=== PATIENT | male | born 1960 | race Caucasian/White ===

== ENCOUNTER 2016-05-15 04:28 | Emergency (ER) | payer MEDICARE, OTHER ==
[~2016-05-15] VITALS: Ht 185.4 cm; Wt 102.1 kg
[~2016-05-15 04:28] MED LIST: ASPI-84 PO; ATOR40TA PO; AZIT-21 PO; CFR250T PO; CHOLESTEROL MED; FENO145T2 PO; LOVA20TA2; METO-333 PO; METO50TA7 PO; MTP50T PO; NAPR-243 PO; OMG1KC PO; PENI500T PO; PRM25T PO; QUIN10TA PO; QUIN5TAB PO; [UNRECOGNIZED DRUG - REMARK]
--- OUTSIDE RECORDS SUMMARY | 2016-05-15 04:34 | XMS REPORT ---
Author Author LUIS ENRIQUE ALLEN [facility] eClinicalWorks Address Unknown Phone Unavailable Care Team Providers Care Payroll Tax Analyst Name Role Phone LUIS ENRIQUE ALLEN CP Unavailable Allergies, Adverse Reactions, Alerts Substance Reaction Event Type Codeine Sulfate Info Not Available Drug Allergy Problems Problem Type Condition Code Onset Dates Condition Status Problem Supraventricular arrhythmia I49.9 Active Assessment Effusion of left olecranon bursa M25.422 Active Problem Coronary artery disease involving [place] coronary artery of [place] heart without angina pectoris I25.10 Active Assessment Supraventricular arrhythmia I49.9 Active Medications Medication Code System Code Instructions Start Date End Date Status Dosage Metoprolol Tartrate [facility] [address]-36 50 MG Orally, needs to establish care every 12 hrs 1 tablet Procedures Procedure Coding System Code Date Office Visit, Est Pt., Level 2 CPT-4 63964 Oct 22, 2015 Vital Signs Date/Time: Oct 22, 2015 Cardiac Monitoring Heart Rate 77 bpm Weight 220.8 lbs Height 73 in BMI 29.13 Index Blood Pressure Diastolic 86 mmHg Blood Pressure Systolic 144 mmHg Results No Known Results Summary Purpose eClinicalWorks Submission
[2016-05-15] MEDS ORDERED: ADENOSINE 6 MG/2 ML (ADENOCARD) VIAL IV ONE (04:45)
[2016-05-15 04:48] LABS: BASOPHILS # (AUTO) 0.1 10^3/uL (0.0-0.1); BASOPHILS % (AUTO) 1 % (0-10); EOSINOPHILS # (AUTO) 0.4 10^3/uL (0.0-0.3); EOSINOPHILS % (AUTO) 3 % (0-10); LYMPHOCYTES # (AUTO) 4.5 X 10^3 (1.0-4.0); LYMPHOCYTES % (AUTO) 35 % (12-44); MEAN CORPUSCULAR HEMOGLOBIN 31 PG (25-34); MEAN CORPUSCULAR HGB CONC 35 G/DL (32-36); MEAN CORPUSCULAR VOLUME 91 FL (80-99); MEAN PLATELET VOLUME 10.9 FL (7.4-10.4); MONOCYTES % (AUTO) 7 % (0-12); NEUTROPHILS # (AUTO) 6.9 X 10^3 (1.8-7.8); NEUTROPHILS % (AUTO) 54 % (42-75); PLATELET COUNT 261 10^3/uL (130-400); RED BLOOD COUNT 5.35 10^6/uL (4.35-5.85); RED CELL DISTRIBUTION WIDTH 14.4 % (10.0-14.5); WHITE BLOOD COUNT 12.8 10^3/uL (4.3-11.0)
--- NOTE | 2016-05-15 04:48 | ED Cardiac General ---
History of Present Illness General Chief Complaint: Cardiac/General Problems Stated Complaint: HEART PALPITATIONS Nursing Triage Note: PT REPORTS PALPITATIONS STARTING AT 0300. C/O FEELING LIGHT-HEADED WITH CHEST PAIN. Source: patient Exam Limitations: no limitations History of Present Illness Time seen by provider: 04:46 Initial Comments Patient developed rapid heart rate around 3 a.m. He denies chest pain or shortness of air. He has a history of SVT with multiple ER visits for this. On arrival his heart rate was a regular narrow complex tachycardia at 150 bpm. Allergies and Home Medications Allergies Coded Allergies: Codeine (Verified Allergy, Unknown, VOMITTING, 12/15/08) Home Medications Metoprolol Tartrate 50 Mg Tablet #60 1 EACH PO BID Prescribed by: VALENTE WOLFF on 05/13/13 1313 Review of Systems Constitutional: no symptoms reported EENTM: No Symptoms Reported Respiratory: No Symptoms Reported Cardiovascular: See HPI Palpitations Gastrointestinal: No Symptoms Reported All Other Systems Reviewed Negative Unless Noted: Yes Past Lpdqxvo-Tysoow-Uteqpr Hx Patient Social History Alcohol Use: Denies Use Recreational Drug Use: Yes (QUIT 5 YRS AGO) Smoking Status: Current Everyday Smoker Recent Foreign Travel: No Contact w/Someone Who Travel: No Recent Infectious Disease Expo: No Recent Hopitalizations: Yes (CHEST PAIN AND BLOOD POISONING) Surgeries HX Surgeries: Yes (HERNIA) Surgeries: Abdominal Respiratory Hx Respiratory Disorders: No Respiratory Disorders: COPD Cardiovascular Hx Cardiac Disorders: Yes (SVT) Cardiac Disorders: Palpitations Neurological Hx Neurological Disorders: No Reproductive System Hx Reproductive Disorders: No Genitourinary Hx Genitourinary Disorders: No Gastrointestinal Hx Gastrointestinal Disorders: No Musculoskeletal Hx Musculoskeletal Disorders: No Endocrine Hx Endocrine Disorders: No HEENT HX ENT Disorders: No Cancer Hx Cancer: No Psychosocial Hx Psychiatric Problems: Yes Behavioral Health Disorders: Anxiety, Depression Integumentary HX Skin/Integumentary Disorder: No Blood Transfusions Hx Blood Disorders: No Reviewed Nursing Assessment Reviewed/Agree w Nursing PMH: Yes Family Medical History Significant Family History: No Pertinent Family Hx Physical Exam Vital Signs Vital Sign - Last 12Hours 05/15/16 04:34 Temp 97.6 Pulse 170 Resp 24 B/P 115/80 Capillary Refill : Less Than 3 Seconds General Appearance: No Apparent Distress WD/WN HEENT: PERRL/EOMI Pharynx Normal Neck: Supple Respiratory: Lungs Clear Normal Breath Sounds Cardiovascular: No Edema Tachycardia Gastrointestinal: Soft Extremity: Normal Inspection Neurologic/Psychiatric: Alert No Motor/Sensory Deficits Skin: Normal Color Warm/Dry Progress/Results/Core Measures Results/Orders Lab Results Laboratory Tests Test 05/15/16 04:35 Range/Units Alanine Aminotransferase (ALT/SGPT) 28 0-55 U/L Albumin 4.2 3.2-4.5 G/DL Alkaline Phosphatase 79 40-136 U/L Anion Gap 13 5-14 MMOL/L Aspartate Amino Transf (AST/SGOT) 18 5-34 U/L BUN/Creatinine Ratio 11 Basophils # (Auto) 0.1 0.0-0.1 10^3/uL Basophils (%) (Auto) 1 0-10 % Blood Urea Nitrogen 12 7-18 MG/DL Calcium Level 9.1 8.5-10.1 MG/DL Carbon Dioxide Level 22 21-32 MMOL/L Chloride Level 105 98-107 MMOL/L Creatinine 1.05 0.60-1.30 MG/DL Eosinophils # (Auto) 0.4 H 0.0-0.3 10^3/uL Eosinophils (%) (Auto) 3 0-10 % Estimat Glomerular Filtration Rate > 60 Glucose Level 123 H 70-105 MG/DL Hematocrit 48 40-54 % Hemoglobin 16.8 13.3-17.7 G/DL Lymphocytes # (Auto) 4.5 H 1.0-4.0 X 10^3 Lymphocytes (%) (Auto) 35 12-44 % Mean Corpuscular Hemoglobin 31 25-34 PG Mean Corpuscular Hemoglobin Concent 35 32-36 G/DL Mean Corpuscular Volume 91 80-99 FL Mean Platelet Volume 10.9 H 7.4-10.4 FL Monocytes # (Auto) 1.0 0.0-1.0 X 10^3 Monocytes (%) (Auto) 7 0-12 % Neutrophils # (Auto) 6.9 1.8-7.8 X 10^3 Neutrophils (%) (Auto) 54 42-75 % Platelet Count 261 130-400 10^3/uL Potassium Level 4.3 3.6-5.0 MMOL/L Red Blood Count 5.35 4.35-5.85 10^6/uL Red Cell Distribution Width 14.4 10.0-14.5 % Sodium Level 140 135-145 MMOL/L Total Bilirubin 0.3 0.1-1.0 MG/DL Total Protein 7.2 6.4-8.2 G/DL Troponin I < 0.30 <0.30 NG/ML White Blood Count 12.8 H 4.3-11.0 10^3/uL My Orders Orders-MELISSA KOHLER MD Ekg Tracing (05/15/16 04:35) Continuous Ekg Monitoring (05/15/16 04:35) Cbc With Automated Diff (05/15/16 04:41) Comprehensive Metabolic Panel (05/15/16 04:41) Troponin I (05/15/16 04:41) Saline Lock/Iv-Start (05/15/16 04:52) Vital Signs/I&O Vital Sign - Last 12Hours 05/15/16 04:34 Temp 97.6 Pulse 170 Resp 24 B/P 115/80 Blood Pressure Mean: 92 Progress Note : Time: 04:47 Progress Note Initial rhythm was SVT. Patient spontaneously converted by holding his breath. ECG Initial ECG Rhythm: Normal Sinus Initial ECG Intervals: Normal Initial ECG Impression: Nonspecific Changes Departure Communication Progress Notes Remains in sinus rhythm and asymptomatic. Ready for discharge Impression Impression: Primary Impression: Supraventricular tachycardia Disposition: 01 HOME, SELF-CARE Condition: Stable Departure-Patient Inst. Decision time for Depature: 05:30 Referrals: LUIS ENRIQUE ALLEN MD (PCP/Family) Primary Care Physician Patient Instructions: Paroxysmal Supraventricular Tachycardia (DC) Add. Discharge Instructions: Follow-up with an clinical research assistant as soon as possible. Your primary care physician can refer you. All discharge instructions reviewed with patient and/ or family. Voiced understanding. MELISSA KOHLER MD May 15, 2016 04:48
[2016-05-15 05:08] LABS: ALANINE AMINOTRANSFERASE 28 U/L (0-55); ALBUMIN 4.2 G/DL (3.2-4.5); ANION GAP 13 MMOL/L (5-14); ASPARTATE AMINO TRANSFERASE 18 U/L (5-34); BILIRUBIN,TOTAL 0.3 MG/DL (0.1-1.0); BLOOD UREA NITROGEN 12 MG/DL (7-18); BUN/CREATININE RATIO 11; CALCIUM 9.1 MG/DL (8.5-10.1); CARBON DIOXIDE 22 MMOL/L (21-32); CHLORIDE 105 MMOL/L (98-107); CREATININE SERUM 1.05 MG/DL (0.60-1.30); GFR ESTIMATED > 60; GLUCOSE 123 MG/DL (70-105); POTASSIUM 4.3 MMOL/L (3.6-5.0); SODIUM 140 MMOL/L (135-145); TOTAL PROTEIN 7.2 G/DL (6.4-8.2)
[2016-05-15 05:14] LABS: TROPONIN I < 0.30 NG/ML (<0.30)
[2016-05-15 05:36] VITALS: BP 105/92
== END 2016-05-15 05:36 | disposition home or self-care (01) ==
LOC: EDUNIT# 04:28 → ER 04:30
DX: I47.1 Supraventricular tachycardia (principal); J44.9 Chronic obstructive pulmonary disease, unspecified; F17.210 Nicotine dependence, cigarettes, uncomplicated; Z79.899 Other long term (current) drug therapy
CPT/HCPCS: 36415; 80053; 84484; 85025; 93005

== ENCOUNTER 2016-10-31 20:27 | Emergency (ER) | payer SELFPAY ==
[~2016-10-31] VITALS: Ht 182.9 cm; Wt 103.4 kg
--- OUTSIDE RECORDS SUMMARY | 2016-10-31 20:32 | XMS REPORT ---
Author Author LUIS ENRIQUE ALLEN [facility] eClinicalWorks Address Unknown Phone Unavailable Care Team Providers Care Gasket Former Name Role Phone LUIS ENRIQUE ALLEN CP Unavailable Allergies, Adverse Reactions, Alerts Substance Reaction Event Type Codeine Sulfate Info Not Available Drug Allergy Problems Problem Type Condition Code Onset Dates Condition Status Problem Atherosclerosis of [place] arteries of the extremities, unspecified 440.20 Active Assessment Supraventricular arrhythmia I49.9 Active Problem Supraventricular arrhythmia I49.9 Active Assessment Bronchitis J40 Active Medications Medication Code System Code Instructions Start Date End Date Status Dosage Keflex [facility] [address]-63 500 MG Orally 4 times a day Mar 09, 2015 Mar 16, 2015 1 capsule Metoprolol Tartrate [facility] [address]-42 50 MG Orally, needs to establish care every 12 hrs 1 tablet Procedures Procedure Coding System Code Date Office Visit, Est Pt., Level 4 CPT-4 25820 Mar 09, 2015 VENIPUNCT, ROUTINE* CPT-4 03746 Mar 09, 2015 COMPREHEN METABOLIC PANEL CPT-4 34132 Mar 09, 2015 Vital Signs Date/Time: Mar 09, 2015 Temperature 97.3 F Weight 232.9 lbs Height 73 in BMI 30.72 Index Blood Pressure Diastolic 86 mmHg Blood Pressure Systolic 114 mmHg Cardiac Monitoring Heart Rate 88 bpm Results Name Result Date Reference Range Unit Abnormality Flag ROUTINE VENIPUNCTURE CMP ----Sodium, Serum 138 20150309 134-144 mmol/L ----BUN/Creatinine Ratio 13 20150309 9-20 ----Chloride, Serum 99 20150309 97-108 mmol/L ----Potassium, Serum 4.5 20150309 3.5-5.2 mmol/L ----Calcium, Serum 9.1 20150309 8.7-10.2 mg/dL ----Protein, Total, Serum 6.6 20150309 6.0-8.5 g/dL ----Carbon Dioxide, Total 27 20150309 18-29 mmol/L ----A/G Ratio 1.9 20150309 1.1-2.5 ----eGFR If NonAfricn Am 95 [id number] >59 mL/min/1.73 ----Bilirubin, Total 0.3 20150309 0.0-1.2 mg/dL ----eGFR If Afric[place] Am 109 [id number] >59 mL/min/1.73 ----BUN 12 20150309 6-24 mg/dL ----Albumin, Serum 4.3 20150309 3.5-5.5 g/dL ----Globulin, Total 2.3 20150309 1.5-4.5 g/dL ----Creatinine, Serum 0.92 20150309 0.76-1.27 mg/dL ----ALT (SGPT) 16 20150309 0-44 IU/L ----Glucose, Serum 90 20150309 65-99 mg/dL ----Alkaline Phosphatase, S 81 [id number] 39-117 IU/L ----AST (SGOT) 10 20150309 0-40 IU/L Summary Purpose eClinicalWorks Submission
--- OUTSIDE RECORDS SUMMARY | 2016-10-31 20:32 | XMS REPORT ---
Author Author LUIS ENRIQUE ALLEN [facility] eClinicalWorks Address Unknown Phone Unavailable Care Team Providers Care Automation Engineering Manager Name Role Phone LUIS ENRIQUE ALLEN CP Unavailable Allergies No Known Allergies Problems Problem Type Condition Code Onset Dates Condition Status Problem Acute bronchitis 466.0 Active Problem Cough 786.2 Active Problem Counseling on substance use and abuse V65.42 Active Problem Dyspepsia and other specified disorders of function of stomach 536.8 Active Problem Diarrhea 787.91 Active Problem Ingrowing nail 703.0 Active Problem Atherosclerosis of [place] arteries of the extremities, unspecified 440.20 Active Problem Blood in stool 578.1 Active Problem Irritable bowel syndrome 564.1 Active Problem Pneumonia, organism unspecified 486 Active Problem Other dyspnea and respiratory abnormalities 786.09 Active Problem Paroxysmal supraventricular tachycardia 427.0 Active Problem Other and unspecified hyperlipidemia 272.4 Active Problem Palpitations 785.1 Active Problem Other malaise and fatigue 780.79 Active Medications Medication Code System Code Instructions Start Date End Date Status Dosage Metoprolol Tartrate [facility] [address]-01 50 MG Orally, needs to establish care every 12 hrs 1 tablet Results No Known Results Summary Purpose eClinicalWorks Submission
--- OUTSIDE RECORDS SUMMARY | 2016-10-31 20:32 | XMS REPORT ---
Author Author LUIS ENRIQUE ALLEN [facility] eClinicalWorks Address Unknown Phone Unavailable Care Team Providers Care Night Shift Manager Name Role Phone LUIS ENRIQUE ALLEN CP Unavailable Allergies, Adverse Reactions, Alerts Substance Reaction Event Type Codeine Sulfate Info Not Available Drug Allergy Problems Problem Type Condition Code Onset Dates Condition Status Problem Supraventricular arrhythmia I49.9 Active Assessment Effusion of left olecranon bursa M25.422 Active Problem Coronary artery disease involving [place] coronary artery of [place] heart without angina pectoris I25.10 Active Assessment Supraventricular arrhythmia I49.9 Active Medications Medication Code System Code Instructions Start Date End Date Status Dosage Metoprolol Tartrate [facility] [address]-56 50 MG Orally, needs to establish care every 12 hrs 1 tablet Procedures Procedure Coding System Code Date Office Visit, Est Pt., Level 2 CPT-4 87041 Oct 22, 2015 Vital Signs Date/Time: Oct 22, 2015 Cardiac Monitoring Heart Rate 77 bpm Weight 220.8 lbs Height 73 in BMI 29.13 Index Blood Pressure Diastolic 86 mmHg Blood Pressure Systolic 144 mmHg Results No Known Results Summary Purpose eClinicalWorks Submission
--- OUTSIDE RECORDS SUMMARY | 2016-10-31 20:32 | XMS REPORT ---
Author Author GABRIELLE CALI Organization eClinicalWorks Address Unknown Phone Unavailable Care Team Providers Care Production Laborer Name Role Phone GABRIELLE CALI CP Unavailable Allergies, Adverse Reactions, Alerts Substance Reaction Event Type Codeine Sulfate Info Not Available Drug Allergy Problems Problem Type Condition Code Onset Dates Condition Status Problem Supraventricular arrhythmia I49.9 Active Assessment Bursitis of left elbow M70.32 Active Problem Coronary artery disease involving [place] coronary artery of [place] heart without angina pectoris I25.10 Active Assessment Bursal cyst of olecranon M71.329 Active Medications Medication Code System Code Instructions Start Date End Date Status Dosage Metoprolol Tartrate [facility] [address]-81 50 MG Orally, needs to establish care every 12 hrs 1 tablet Procedures Procedure Coding System Code Date CULTURE, BACTERIA, OTHER CPT-4 58393 Nov 06, 2015 ASPIRATE/INJ GANGLION CYST CPT-4 52566 Nov 06, 2015 CULTURE BACTERIA ANAEROBIC CPT-4 01776 Nov 06, 2015 Office Visit, Est Pt., Level 2 CPT-4 84489 Nov 06, 2015 Vital Signs Date/Time: Nov 06, 2015 Cardiac Monitoring Heart Rate 72 bpm Weight 221.8 lbs Height 73 in BMI 29.26 Index Blood Pressure Diastolic 74 mmHg Blood Pressure Systolic 124 mmHg Results No Known Results Summary Purpose eClinicalWorks Submission
--- NOTE | 2016-10-31 20:50 | ED EENT ---
History of Present Illness General Chief Complaint: Dental Problems/Pain Stated Complaint: TOOTH PAIN Nursing Triage Note: PT TO ED 6 W/ C/O DENTAL PAIN X2-3WKS, WORSE THIS AM AT 0200. REPORTS WAS SEEN BY HIS DENTIST X2 DAYS AGO ET PRESCRIBED A "SECOND ROUND OF ANTIBIOTICS". DENIES IMPROVEMENT. STATES WANTS TOOTH PULLED BUT HAS TO WAIT TO SEE AN ORAL SURGEON IN Source: patient Exam Limitations: no limitations History of Present Illness Time seen by provider: 20:41 Initial Comments Patient reports ER by private conveyance with chief complaint of to 3 weeks worsening pain in his left upper jaw tooth that is scheduled for surgery in approximately one month. He is on his second round of antibiotics now clindamycin. He saw Dr. Lenz, his PCP and was given tramadol 50 mg but felt this did not help very much. He has been using ibuprofen 800 mg every 4 hours and Tylenol thousand grams every 4 hours. He has not use heat or cold yet. Hurts her time he touches it or brush his teeth or eat or drink anything hot or cold. Has no fevers or chills or nausea or vomiting. Allergies and Home Medications Allergies Coded Allergies: codeine (Verified Allergy, Unknown, VOMITTING, 12/15/08) Home Medications Lidocaine HCl 5 Ml Jel.pf.fang, 5 ML MM Q8H PRN for BREAKTHROUGH PAIN for 7 Days , #30 Ref 0 Prescribed by: AILYAH LOPEZ on 10/31/162054 Metoprolol Tartrate 50 Mg Tablet, 1 EACH PO BID, #60 Prescribed by: VALENTE WOLFF on 05/13/13 1313 Review of Systems Constitutional: No chills, No diaphoresis, No fever Eyes: Denies Drainage, Denies Pain Ears: Denies Dizziness, Denies Pain Mouth: denies clots, denies loose teeth, pain, denies swelling Throat: denies pain, denies swelling Respiratory: No cough, No short of breath Cardiovascular: No chest pain, No palpitations Gastrointestinal: No nausea, No vomiting Skin: No pruritus, No rash Neurological: Denies Headache, Denies Numbness Past Bdpojxb-Jmlywa-Xvxevd Hx Patient Social History Alcohol Use: Denies Use Recreational Drug Use: Yes (QUIT 5 YRS AGO) Smoking Status: Current Everyday Smoker Type Used: Cigarettes Recent Foreign Travel: No Contact w/Someone Who Travel: No Recent Infectious Disease Expo: No Recent Hopitalizations: Yes (CHEST PAIN AND BLOOD POISONING) Surgeries HX Surgeries: Yes (HERNIA) Surgeries: Abdominal Respiratory Hx Respiratory Disorders: No Respiratory Disorders: COPD Cardiovascular Hx Cardiac Disorders: Yes (SVT) Cardiac Disorders: Palpitations Neurological Hx Neurological Disorders: No Reproductive System Hx Reproductive Disorders: No Genitourinary Hx Genitourinary Disorders: No Gastrointestinal Hx Gastrointestinal Disorders: No Musculoskeletal Hx Musculoskeletal Disorders: No Endocrine Hx Endocrine Disorders: No HEENT HX ENT Disorders: No Cancer Hx Cancer: No Psychosocial Hx Psychiatric Problems: Yes Behavioral Health Disorders: Anxiety, Depression Integumentary HX Skin/Integumentary Disorder: No Blood Transfusions Hx Blood Disorders: No Family Medical History Significant Family History: No Pertinent Family Hx Physical Exam Vital Signs Vital Sign - Last 12Hours 10/31/16 20:30 Temp 97.5 Pulse 80 Resp 20 B/P (MAP) 165/103 Pulse Ox 99 O2 Delivery Room Air General Appearance: WD/WN, no apparent distress Eyes: bilateral eye EOMI, bilateral eye PERRL, bilateral eye normal inspection Ears: bilateral ear TM normal, bilateral ear auricle normal, bilateral ear canal normal Nose: normal inspection, No discharge Mouth/Throat: normal mouth inspection, pharynx normal, dental tenderness (left upper molars) Neck: non-tender, supple, normal inspection Cardiovascular: normal peripheral pulses, regular rate, rhythm Respiratory: lungs clear, normal breath sounds Neurologic/Psychiatric: alert, oriented x 3 Progress/Results/Core Measures Results/Orders My Orders Orders - ALIYAH LOPEZ Lidocaine 2% Viscous 15 Ml (Xylocaine Vi (10/31/16 21:00) Medications Given in ED Current Medications Medications Dose Ordered Sig/Pankaj Route Start Time Stop Time Status Last Admin Dose Admin Lidocaine HCl 5 ml ONCE ONCE PO 10/31/16 21:00 10/31/16 21:01 DC 10/31/16 20:57 5 ML Vital Signs/I&O Vital Sign - Last 12Hours 10/31/16 20:30 Temp 97.5 Pulse 80 Resp 20 B/P (MAP) 165/103 Pulse Ox 99 O2 Delivery Room Air Blood Pressure Mean: 123 Departure Impression Impression: Primary Impression: Pain due to dental caries Disposition: 01 HOME, SELF-CARE Condition: Stable Departure-Patient Inst. Decision time for Depature: 20:47 Referrals: LUIS ENRIQUE ALLEN MD (PCP/Family) Primary Care Physician Patient Instructions: Dental Pain (DC) Add. Discharge Instructions: If you're having pain apply the numbing ointment on to a cotton swab and put it against her tooth that hurts and hold there for 20-40 minutes. Apply an ice pack to the outside of your mouth alternated with a hot pack. Use Tylenol 1000 g every 8 hours by mouth and ibuprofen 800 mg every 8 hours by mouth. If you're still unable to control your pain you should return to your primary care physician for further management. All discharge instructions reviewed with patient and/or family. Voiced understanding. Scripts Lidocaine HCl (Lidocaine HCl) 5 Ml Jel.pf.fang 5 ML MM Q8H Y for BREAKTHROUGH PAIN for 7 Days, #30 ML 0 Refills Prov: ALIYAH LOPEZ 10/31/16 Copy Copies To 1: LUIS ENRIQUE ALLEN MD, TITUS J Oct 31, 2016 20:50
[2016-10-31] MEDS ORDERED: LIDO5JEL10 MM (20:55)
[2016-10-31] MEDS ORDERED: LIDOCAINE 2% VISCOUS 15 ML UDC PO ONE (21:00)
[2016-10-31 21:01] VITALS: BP 0/0
== END 2016-10-31 21:01 | disposition home or self-care (01) ==
LOC: EDUNIT# 20:27 → ER 20:28
DX: K02.9 Dental caries, unspecified (principal); J44.9 Chronic obstructive pulmonary disease, unspecified; F41.9 Anxiety disorder, unspecified; F32.9 Major depressive disorder, single episode, unspecified; F17.210 Nicotine dependence, cigarettes, uncomplicated
CPT/HCPCS: 99282

== ENCOUNTER → 2017-12-09 | Outpatient (CLI) | payer SELFPAY ==
[~2017-12-09] MED LIST changes: +LIDO5JEL10 MM
--- NOTE | 2017-12-09 11:03 | Diagnostic Imaging Report ---
CLINICAL INDICATION: Patient with low back pain with left hip pain x 7 months. No known injury. EXAM: MRI of the lumbar spine performed without IV contrast. Sequences include sagittal T2, sagittal T1, sagittal T2 fat-sat, and axial T2. COMPARISON: None. FINDINGS: There is a transitional lumbosacral vertebra which will be designated as the L5 vertebra with a slightly small L5-S1 intervertebral disc. There is no evidence of acute lumbar spine fracture. There is Modic type I degenerative signal changes involving the L4-L5 endplates. There are moderately hypertrophic spurs and facet arthropathy seen throughout the lumbar spine. Limited visualization of distal thoracic spinal cord, conus medullaris, and cauda equina nerve roots are unremarkable. Conus medullaris tip is seen at the T12-L1 intervertebral level. There is no significant paraspinal soft tissue abnormality. T11-T12: There is diffuse disc bulge with superimposed small right paracentral disc herniation which causes mild central canal narrowing. There is no significant neural foramen narrowing. Chronic Schmorl's nodes are seen involving the endplates with mild to moderate loss of intervertebral disc height. T12-L1: There is mild diffuse disc bulge. There is no significant central spinal canal or neural foramen narrowing. Chronic Schmorl's nodes are seen involving the endplates with mild to moderate loss of intervertebral disc height. L1-L2: There is a diffuse disc bulge with mild to moderate loss of intervertebral disc height. Small chronic Schmorl's nodes. There is no significant central spinal canal or neural foramen narrowing. L2-L3: There is roughly 4 mm of grade 1 retrolisthesis of L2 on L3. There is a diffuse disc bulge with hypertrophic disc spurs extending posteriorly and into the foraminal regions bilaterally. There is moderate to severe loss of intervertebral disc height. There is mild bilateral facet arthropathy. There is moderate right neural foramen narrowing and mild to moderate left neural foramen narrowing. There is mild to moderate central canal narrowing. L4-5: There is a diffuse disc bulge with severe loss of intervertebral disc height, endplate irregularity, chronic appearing Schmorl's nodes. There are disc spurs extending posteriorly and into the foraminal regions bilaterally. There is severe bilateral neural foramen narrowing (left side more than the right). There is mild central canal narrowing. There is moderate bilateral facet arthropathy/hypertrophy. L5-S1: There is mild bilateral facet arthropathy. There is no significant central spinal canal or neural foramen narrowing. IMPRESSION: 1: There is moderate to severe multilevel lumbar spine degenerative disc disease which is described in detail above. 2: There is grade 1 retrolisthesis of L2 on L3. Dictated by: Dictated on workstation # [id number]
== END ==
LOC: RAD 09:13
PROVIDERS: ATTEND Internal Medicine
DX: M48.061 Spinal stenosis, lumbar region without neurogenic claudication (principal); M51.46 Schmorl's nodes, lumbar region; M51.16 Intervertebral disc disorders with radiculopathy, lumbar region; M46.87 Other specified inflammatory spondylopathies, lumbosacral region; M99.73 Connective tissue and disc stenosis of intervertebral foramina of lumbar region; M43.16 Spondylolisthesis, lumbar region; M47.26 Other spondylosis with radiculopathy, lumbar region
CPT/HCPCS: 72148

== ENCOUNTER 2018-01-04 00:14 | Emergency (ER) | payer OTHER ==
[~2018-01-04] VITALS: Ht 185.4 cm; Wt 107.0 kg
[2018-01-04] MEDS ORDERED: NS IV 1000 ML 1,000 ML ONE (00:42)
--- NOTE | 2018-01-04 00:43 | ED Integumentary General ---
General Stated Complaint: ITCHY RASHES Source: patient Exam Limitations: no limitations History of Present Illness Date Seen by Provider: Jan 04, 2018 Time Seen by Provider: 00:40 Initial Comments Patient resents to ER by private conveyance with chief complaint of an all over body itchy red rash looks like hives. He says the only thing he is taking new is Lyrica about one week ago. No new soaps detergents [place] dryer sheets hair or skin products. No history of anaphylaxis, COPD, asthma. Having a little bit of difficulty breathing and throat not closing and no stridor. Allergies and Home Medications Allergies Coded Allergies: codeine (Verified Allergy, Unknown, VOMITTING, 12/15/08) Home Medications Lidocaine HCl 5 Ml Jel.pf.fang, 5 ML MM Q8H PRN for BREAKTHROUGH PAIN Prescribed by: ALIYAH LOPEZ on 10/31/162054 Metoprolol Tartrate 50 Mg Tablet, 1 EACH PO BID Prescribed by: VALENTE WOLFF on 05/13/13 1313 Patient Home Medication List Home Medication List Reviewed: Yes Review of Systems Review of Systems Constitutional: No chills, No diaphoresis EENTM: No hearing loss, No ear pain Respiratory: No cough, No short of breath, No wheezing Cardiovascular: No Hx of Intervention, No palpitations Gastrointestinal: No abdominal pain, No constipation, No diarrhea Genitourinary: No discharge, No dysuria Past Xfncfir-Bygsxz-Ngrpuz Hx Patient Social History Alcohol Use: Denies Use Recreational Drug Use: No Smoking Status: Current Everyday Smoker Type Used: Cigarettes Recent Foreign Travel: No Contact w/Someone Who Travel: No Recent Hopitalizations: Yes (CHEST PAIN AND BLOOD POISONING) Past Medical History Surgeries: Yes (HERNIA) Abdominal Respiratory: No COPD Cardiac: Yes (SVT) Palpitations Neurological: No Reproductive Disorders: No Gastrointestinal: No Musculoskeletal: No Endocrine: No Cancer: No Psychosocial: Yes Anxiety, Depression Integumentary: No Blood Disorders: No Family Medical History No Pertinent Family Hx Physical Exam Vital Signs Capillary Refill : General Appearance: WD/WN, mild distress HEENT: PERRL/EOMI, pharynx normal Neck: non-tender, full range of motion, normal inspection Cardiovascular: normal peripheral pulses, regular rate, rhythm Respiratory: chest non-tender, lungs clear, normal breath sounds, no respiratory distress, no accessory muscle use Gastrointestinal: normal bowel sounds, non tender, soft Neurologic/Psychiatric: alert, normal mood/affect, oriented x 3 Skin: rash (hives over her trunk, abdomen and all 4 extremities) Skin Problem Location: generalized Skin Problem Character: blanching Progress/Results/Core Measures Results/Orders My Orders Orders - JOHNALIYAH ASCENCIO Iv Heplock-Insert (Order) (01/04/18 00:38) Methylprednisolone Sod Succ (Solu-Medrol (01/04/18 00:45) Diphenhydramine Injection (Benadryl Inje (01/04/18 00:45) Famotidine Injection (Pepcid Injection) (01/04/18 00:45) Loratadine Tablet (Claritin Tablet) (01/04/18 00:45) Ns Iv 1000 Ml (Sodium Chloride 0.9%) (01/04/18 00:42) Saline Lock/Iv-Start (01/04/18 00:47) Ns Iv 1000 Ml (Sodium Chloride 0.9%) (01/04/18 00:47) Saline Lock/Iv-Start (01/04/18 00:47) Saline Lock/Iv-Start (01/04/18 00:53) Ns Iv 1000 Ml (Sodium Chloride 0.9%) (01/04/18 00:53) Diphenhydramine Injection (Benadryl Inje (01/04/18 01:00) Medications Given in ED Current Medications Medications Dose Ordered Sig/Pankaj Route Start Time Stop Time Status Last Admin Dose Admin Diphenhydramine HCl 25 mg ONCE ONCE IVP 01/04/18 00:45 01/04/18 00:46 DC 01/04/18 00:54 25 MG Diphenhydramine HCl 25 mg ONCE ONCE IVP 01/04/18 01:00 01/04/18 01:01 DC 01/04/18 00:54 25 MG Famotidine 20 mg ONCE ONCE IVP 01/04/18 00:45 01/04/18 00:46 DC 01/04/18 00:54 20 MG Methylprednisolone Sodium Succinate 125 mg ONCE ONCE IVP 01/04/18 00:45 01/04/18 00:46 DC 01/04/18 00:53 125 MG Progress Progress Note : Time: 02:19 Progress Note Gave him a dose of Solu-Medrol, 50 mg Benadryl, Pepcid 20 mg IV and ordered loratadine 10 mg but that hasn't come yet. The patient no longer has any sore scratchy or tight throat, difficulty breathing or itching. He is much more comfortable. His blood pressure however did drop down to 77 systolic. We put him in Trendelenburg and it went up to 85 and started 2 L of fluid. After the first liter his blood pressure is already up to 125 systolic so we got him out of Trendelenburg and the blood pressure stayed up. He's got about 500 cc left ago. Departure Impression Primary Impression: Anaphylactic reaction Qualified Codes: T78.2XXA - Anaphylactic shock, unspecified, initial encounter Disposition: HOME, SELF-CARE Condition: Improved Departure-Patient Inst. Decision time for Depature: 02:20 Referrals: LUIS ENRIQUE ALLEN MD (PCP/Family) Primary Care Physician Patient Instructions: Anaphylaxis (DC) Add. Discharge Instructions: Discontinue the Lyrica and make an appointment to follow up with your primary care provider. 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 Take Claritin or Zyrtec one tablet daily for the next 3 days. Take Pepcid or Zantac one tablet twice a day for the next 3 days. If you are still having itching or increasing rash then you can take Benadryl 1- 2 tablets every 6 hours as needed to control your symptoms. Scripts Prednisone (Prednisone) 20 Mg Tab 20 MG PO BID for 3 Days, #6 TAB 0 Refills Take 3 tabs(60mg)daily, decrease by 1/2 tab(10mg)daily. Prov: ALIYAH LOPEZ 01/04/18 Copy Copies To 1: SAM COOK TITUS J Jan 04, 2018 00:42
[2018-01-04] MEDS ORDERED: diphenhydrAMINE 50 MG/ML INJ (BENADRYL) IVP ONE ×2 (00:45→01:00)
[2018-01-04] MEDS ORDERED: FAMOTIDINE 20MG/2ML IV (PEPCID) IVP ONE (00:45)
[2018-01-04] MEDS ORDERED: methylPREDNISolone 125 MG (Solu-MEDROL) VIAL IVP ONE (00:45)
[2018-01-04] MEDS ORDERED: LORATADINE (CLARITIN) 10 MG TAB PO ONE (00:45)
[2018-01-04] MEDS ORDERED: NS IV 1000 ML 1,000 ML IV SCH ×2 (00:47→00:53)
[2018-01-04] MEDS ORDERED: PRD20T PO (02:23)
[2018-01-04 03:15] VITALS: BP 131/80
== END 2018-01-04 03:20 | disposition home or self-care (01) ==
LOC: EDUNIT# 00:14 → ER 00:15
DX: T78.2XXA Anaphylactic shock, unspecified, initial encounter (principal); L29.9 Pruritus, unspecified; J44.9 Chronic obstructive pulmonary disease, unspecified; F41.9 Anxiety disorder, unspecified; F32.9 Major depressive disorder, single episode, unspecified; F17.210 Nicotine dependence, cigarettes, uncomplicated; Z88.5 Allergy status to narcotic agent; Z87.19 Personal history of other diseases of the digestive system
CPT/HCPCS: 96361; 96374; 96375

== ENCOUNTER 2018-02-17 23:59 | Emergency (ER) | payer OTHER ==
[~2018-02-17] VITALS: Ht 185.4 cm; Wt 108.0 kg
[~2018-02-17 23:59] MED LIST changes: +PRD20T PO
--- OUTSIDE RECORDS SUMMARY | 2018-02-18 00:05 | XMS REPORT ---
Author Author LUIS ENRIQUE ALLEN Organization [facility] Address [address] [place] [address] Care Team Providers Care Sales Performance Manager Name Role Phone LUIS ENRIQUE ALLEN Unavailable PROBLEMS Type Condition ICD9-CM Code ZGA43-LY Code Onset Dates Condition Status SNOMED Code Problem Mixed hyperlipidemia E78.2 Active 872463591 Problem Lumbar radiculopathy M54.16 Active 395511900 Problem Supraventricular arrhythmia I49.9 Active 93860756 Problem Adult periodontitis K05.30 Active 86347387 Problem Coronary artery disease involving [place] coronary artery of [place] heart without angina pectoris I25.10 Active [id number] ALLERGIES Substance Reaction Event Type Date Status Lyrica anaphylaxis Drug Allergy Dec, Active Codeine Sulfate Unknown Drug Allergy Dec, Active ENCOUNTERS Encounter Location Date Diagnosis [facility] [id number] [place] [address] 36366- 9662 Dec, Lumbar radiculopathy M54.16 [facility] [id number] [place] [address] 95246- 6295 Dec, [facility] [id number] [place] [address] 65774- 8497 Dec, Lumbar radiculopathy M54.16 and Supraventricular arrhythmia I49.9 [facility] [id number] [place] [address] 95571- 1060 Dec, Onychomycosis B35.1 and Nail dystrophy L60.3 [facility] [id number] [place] [address] 13153- 3162 Nov, [facility] [id number] [place] [address] 79721- 4931 Nov, Lumbar radiculopathy M54.16 and Coronary artery disease involving [place] coronary artery of [place] heart without angina pectoris I25.10 [facility] [address] [address] 12 Jun, 2017 Lumbar radiculopathy M54.16 ; Mixed hyperlipidemia E78.2 and Coronary artery disease involving [place] coronary artery of [place] heart without angina pectoris I25.10 [facility] [address] [place] [address] [id number] Mar, Dental examination Z01.20 [facility] [id number] [place] [address] 26284- 9483 13 Feb, 2017 Coronary artery disease involving [place] coronary artery of [place] heart without angina pectoris I25.10 [facility] [id number] [place] [address] 01693- 2247 12 Feb, 2017 Coronary artery disease involving [place] coronary artery of [place] heart without angina pectoris I25.10 [facility] [address] [place] [address] 92595 -6249 07 Nov, 2016 Adult periodontitis K05.30 [facility] [id number] [place] [address] 66716- 5060 07 Nov, 2016 Dental examination Z01.20 [facility] [id number] [place] [address] 36367- 4048 Oct, Dental caries K02.9 [facility] [id number] [place] [address] [id number] Oct, Dental examination Z01.20 [facility] [id number] [place] [address] 48161- 9309 Sep, Tooth pain K08.89 [facility] [id number] [place] [address] 86117- 9922 26 Sep, 2016 Pain due to dental caries K02.9 [facility] [address] [facility] [id number] [place] [address] 93881- 3055 14 Sep, 2016 Pain due to dental caries K02.9 [facility] [address] [id number] 14 Sep, 2016 Dental caries K02.9 [facility] [id number] [place] [address] 60126- 7657 14 Sep, 2016 Dental examination Z01.20 [facility] [address] [place] [address] 65943- 7315 14 Sep, 2016 Dental caries K02.9 [facility] [id number] [place] [address] 97795- 5603 14 Sep, 2016 [facility] [id number] [place] [address] 96741- 7433 July, Supraventricular arrhythmia I49.9 and Pain due to dental caries K02.9 [facility] [address] [place] [address] [id number] July, Dental examination Z01.20 [facility] [id number] [place] [address] 43924- 1276 Mar, Onychomycosis B35.1 and Nail, ingrown L60.0 [facility] [id number] [place] [address] 66373- 3397 Feb, Ingrown toenail without infection L60.0 [facility] [address] [place] [address] 07148- 2549 Oct, Bursitis of left elbow M70.32 and Bursal cyst of olecranon M71.329 [facility] [address] [place] [address] 29063- 6988 Oct, Effusion of left olecranon bursa M25.422 and Supraventricular arrhythmia I49.9 [facility] [address] [place] [address] 71152- 0150 13 Jun, 2015 Dental caries K02.9 and Dental examination Z01.20 [facility] [address] [place] [address] 15772- 2248 04 Jun, 2015 Dental examination Z01.20 [facility] [address] [address] 1007 18 Feb, 2015 Supraventricular arrhythmia I49.9 and Bronchitis J40 [facility] [id number] [place] [address] 14949- 9389 Jan, [facility] [id number] [place] [address] 68718- 9498 24 Aug, 2014 Bronchitis 490 and Atherosclerosis of [place] arteries of the extremities, unspecified 440.20 [facility] [id number] [place] [address] 33471- 4612 July, [facility] [id number] [place] [address] 66803- 1493 14 Jun, 2014 [facility] [id number] [place] [address] 09298- 0325 Jun, [facility] [id number] [place] [address] 43857- 1293 Mar, [facility] [address] [place] [address] 22182- 8965 Mar, [facility] [id number] [place] [address] 21937- 3289 Feb, [facility] [address] [place] [address] 85716- 4246 Feb, [facility] [address] [place] [address] 84182- 9312 Feb, [facility] [address] [place] [address] 43673- 8599 Feb, [facility] [id number] [place] [address] 11712- 9491 Feb, [facility] [address] [place] [address] 62234- 9642 Feb, [facility] [id number] [place] [address] 04143- 0880 Jan, [facility] [place] [facility] [address] [id number] [place] [address]- 0931 Jan, [facility] [place] [facility] [address] [id number] [place] 5097 Jan, [facility] [place] [facility] [address] [id number] [place] [address]- 3087 Jan, [facility] [place] [facility] [address] [id number] [place] [address]- 0676 Jan, [facility] [place] [facility] [address] [id number] [place] [address]- 9643 Jan, [facility] [place] [facility] [address] [id number] [place] [address]- 1133 Dec, [facility] [place] [facility] [address] [id number] [place] [address]- 5056 Dec, [facility] [place] [facility] [address] [id number] [place] [address]- 7780 Dec, [facility] [place] [facility] [address] [id number] [place] [address]- 3323 Dec, [facility] [place] [facility] [address] [id number] [place] [address]- 4722 Nov, [facility] [place] [facility] [address] [id number] [place] [address]- 1003 Nov, [facility] [place] [facility] [address] [id number] [place] [address]- 2561 Jun, [facility] [place] [facility] [address] [id number] [place] [address]- 0310 Jun, [facility] [place] [facility] [address] [id number] [place] [address]- 6529 Jun, [facility] [place] [facility] [address] [id number] [place] [address]- 6382 Jun, [facility] [place] [facility] [address] [id number] [place] [address]- 7835 Apr, [facility] [address] [id number] [place] [address]- 9516 Apr, [facility] [place] [facility] [address] [id number] [place] [address]- 2546 Apr, [facility] [address] [id number] [place] [address]- 0826 Mar, [facility] [place] [facility] [address] [id number] [place] [address]- 5930 Mar, [facility] [place] [facility] [address] [id number] [place] [address]- 8416 Mar, [facility] [place] [facility] [address] [id number] [place] [address]- 9056 Mar, [facility] [address] [id number] [place] [address]- 0442 Nov, [facility] [address] [id number] [place] [address]- 4079 Nov, [facility] [address] [id number] [place] [address]- 9166 July, [facility] [address] [id number] [place] [address]- 5157 May, [facility] [place] [facility] [address] [id number] [place] [address]- 3846 Mar, [facility] [place] [facility] [address] [id number] [place] [address]- 4120 Feb, [facility] [place] [facility] [address] [id number] [place] [address]- 7556 Feb, [facility] [place] [facility] [address] [id number] [place] [address]- 2546 Feb, [facility] [place] [facility] [address] [id number] [place] [address]- 4104 Feb, [facility] [place] [facility] [address] [id number] [place] [address]- 7711 Jan, [facility] [place] [facility] [address] [id number] [place] [address]- 5457 Jan, [facility] [place] [facility] [address] [id number] [place] [address]- 4355 Jan, [facility] [place] [facility] [address] [id number] [place] [address]- 0223 Jan, [facility] [place] [facility] [address] [id number] [place] [address]- 3701 Jan, [facility] [place] [facility] [address] [id number] [place] [address]- 3876 Jan, [facility] [place] [facility] [address] [facility] [id number] [place] [address]- 7902 Jan, [facility] [place] [facility] [address] [id number] [place] [address]- 6818 Jan, [facility] [place] [facility] [address] [id number] [place] [address]- 8940 Jan, [facility] [place] [facility] [address] [facility] [id number] [address]- 1361 Dec, [facility] [place] [facility] [address] [id number] [place] [address]- 5684 Dec, [facility] [place] [facility] [address] [id number] [place] [address]- 9124 16 Dec, 2011 [facility] [place] [facility] [address] [id number] [place] [address]- 2105 Dec, [facility] [place] [facility] [address] [id number] [place] [address]- 7597 Dec, [facility] [place] [facility] [address] [facility] [id number] [place] [address]- 5998 Dec, [facility] [place] [facility] [id number] [address]- 5999 Dec, [facility] [address] [address]- 7464 Dec, [facility] [address] [address]- 4245 Dec, [facility] [address] [address]- 0148 Dec, [facility] [address] [address]- 5401 Dec, [facility] [address] [place] [address] 54032- 0364 Oct, [facility] [address] [address]- 9677 Oct, [facility] [address] [place] [address] 14530- 7649 Feb, [facility] [address] [address]- 2747 Feb, [facility] [address] [address]- 7590 Oct, [facility] [address] [address]- 6208 Jan, [facility] [address] [address]- 1790 Jan, IMMUNIZATIONS No Known Immunizations SOCIAL HISTORY Never Assessed REASON FOR VISIT Hospital f/u- anaphylactic shock from lyrica - 01/03/18 PLAN OF CARE Activity Details Follow Up 3 Months Reason: VITAL SIGNS Height 73 in 2018-01-08 Weight 243 lbs 2018-01-08 Temperature 97.4 degrees Fahrenheit 2018-01-08 Heart Rate 68 bpm 2018-01-08 Respiratory Rate 20 2018-01-08 BMI 32.06 kg/m2 2018-01-08 Blood pressure systolic 138 mmHg 2018-01-08 Blood pressure diastolic 88 mmHg 2018-01-08 MEDICATIONS Medication Instructions Dosage Frequency Start Date End Date Duration Status Metoprolol Tartrate 50 mg TAKE ONE TABLET BY MOUTH EVERY 12 HOURS (MUST HAVE APPOINTMENT FOR REFILL) 30 Active Ibuprofen 800 MG Orally Three times a day 1 tablet with food or milk as needed 8h Dec, Active Tramadol HCl 50 mg Orally 3 times a day 1 tablet as needed 8h Dec, Mar, 28 days Active Lipitor 40 MG Orally Once a day 1 tablet 24h 30 Active Tylenol Extra Strength 500 MG Orally every 6 hrs 2 tablets as needed 6h Active RESULTS Name Result Date Reference Range URINE DRUG SCREEN (IN HOUSE) 2018-01-08 Lot # [id number] Exp date 05/2019 Control + COCAINE Neg AMPH Neg MTD Neg THC Neg OPIATE Neg BENZO Neg PCP Neg BAR Neg OXY Neg MAMP Neg BUP Neg MDMA Neg TCA Neg PROCEDURES Procedure Date Ordered Result Body Site DRUG TEST PRSMV DIR OPT OBS Jan 08, 2018 INSTRUCTIONS MEDICATIONS ADMINISTERED No Known Medications MEDICAL (GENERAL) HISTORY Type Description Date Medical History irritable bowel syndrome Medical History substance abuse Medical History tachycardia Medical History palpitations Medical History hypertension Surgical History appendectomy Surgical History colonscopy-polyp found
--- OUTSIDE RECORDS SUMMARY | 2018-02-18 00:05 | XMS REPORT ---
Author Author LUIS ENRIQUE ALLEN Organization 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 coronary artery of [place] heart without angina pectoris I25.10 Active 9060638269017 ALLERGIES Substance Reaction Event Type Date Status Lyrica anaphylaxis Drug Allergy Dec, Active Codeine Sulfate Unknown Drug Allergy Dec, Active ENCOUNTERS Encounter Location Date Diagnosis [place] [address] [address] Dec, [place] [address] [address] Dec, [place] [address] [address] Dec, Lumbar radiculopathy M54.16 and Supraventricular arrhythmia I49.9 [place] [id number] [place] [id number] [place] [address]- [address] Dec, Onychomycosis B35.1 and Nail dystrophy L60.3 [place] [address] [address] Nov, [place] [address] [address] Nov, Lumbar radiculopathy M54.16 and Coronary artery disease involving [facility] coronary artery of [facility] heart without angina pectoris I25.10 [facility] [address] [address] 12 Jun, 2017 Lumbar radiculopathy M54.16 ; Mixed hyperlipidemia E78.2 and Coronary artery disease involving [facility] coronary artery of [facility] heart without angina pectoris I25.10 [facility] [id number] [place] [id number] Mar, Dental examination Z01.20 [facility] [address] [place] [id number] [place] [address] 46663- 0234 13 Feb, 2017 Coronary artery disease involving [facility] coronary artery of [facility] heart without angina pectoris I25.10 [facility] [address] [place] [id number] [place] [address] 01896- 4875 12 Feb, 2017 Coronary artery disease involving [facility] coronary artery of [facility] heart without angina pectoris I25.10 [facility] [address] [place] [id number] [place] [address] 07 Nov, [address] [facility] [address] [place] [id number] [place] [address] 30347- 8918 07 Nov, [address] [facility] [address] [place] [id number] [place] [address] 18510- 0285 Oct, Dental caries K02.9 [facility] [id number] [place] [phone] Oct, Dental examination Z01.20 [facility] [address] [place] [id number] [place] [address] 07203- 2679 Sep, Tooth pain K08.89 [facility] [address] [place] [id number] [place] [address] 00271- 2220 26 Sep, 2016 Pain due to dental caries K02.9 [facility] [address] [place] [id number] [place] [address] 99013- 7860 14 Sep, 2016 Pain due to dental caries K02.9 [facility] [address] [place] [id number] [place] [address] [id number] 14 Sep, [address] [facility] [address] [place] [address] 97132- 3223 14 Sep, [address] [facility] [address] [place] [id number] [place] [address] 67704- 6286 14 Sep, [address] [facility] [address] [place] [id number] [place] [address] 55235- 8810 14 Sep, 2016 [facility] [address] [place] [id number] [place] [address] 14779- 9447 July, Supraventricular arrhythmia I49.9 and Pain due to dental caries K02.9 [facility] [address] [place] [address] [phone] July, Dental examination Z01.20 [place] [address] [place] [id number] [place] [address] 05924- 5299 Mar, Onychomycosis B35.1 and Nail, ingrown L60.0 [place] [address] [place] [address] 79862- 5916 Feb, Ingrown toenail without infection L60.0 [place] [address] [place] [address] 86597- 4558 Oct, Bursitis of left elbow M70.32 and Bursal cyst of olecranon M71.329 [place] [address] [place] [address] 03653- 6454 Oct, Effusion of left olecranon bursa M25.422 and Supra[address] arrhythmia I49.9 [facility] [address] [place] [id number] [place] [address] 70403- 8707 13 Jun, 2015 Dental caries K02.9 and Dental examination Z01.20 [place] [address] [place] [id number] [place] [address] 29985- 6531 04 Jun, 2015 Dental examination Z01.20 [place] [address] [address] 18 Feb, 2015 Supraventricular arrhythmia I49.[address] [facility] [address] [place] [id number] [place] [address] 48773- 1444 Jan, [facility] [address] [address]83 24 Aug, 2014 Bronchitis [address] [place] arteries of the extremities, unspecified 440.20 [facility] [address] [place] [id number] [place] [address] 85974- 2945 July, [facility] [address] [place] [id number] [place] [address] 38277- 0632 [address], [address] [facility] [address] [place] [id number] [place] [address] 53458- 1431 Jun, [facility] [address] [place] [id number] [place] [address] 68461- 7143 Mar, [facility] [address] [place] [address] 07687- 7586 Mar, [facility] [address] [place] [id number] [place] [address] 91388- 4096 Feb, [facility] [address] [address] Feb, [facility] [address] [place] [address] 92393- 1921 Feb, [facility] [address] [address] Feb, [facility] [address] [place] [id number] [place] [address] 23836- 0384 Feb, [facility] [address] [address] Feb, [facility] [address] [place] [address] 16007- 5825 Jan, [facility] [place] [facility] [address] [id number] [place] [address]- 2912 Jan, [facility] [place] [facility] [address] [id number] [place] [address]- 3022 Jan, [facility] [place] [facility] [address] [id number] [place] [address] Jan, [facility] [place] [facility] [address] [id number] [place] [address]- 8077 Jan, [facility] [place] [facility] [address] [id number] [place] [address]- 3178 Jan, [facility] [place] [facility] [address] [id number] [place] [address]- 6502 Dec, [facility] [place] [facility] [address] [id number] [place] [address]- 0223 Dec, [facility] [place] [facility] [address] [id number] [place] [address]- 0801 Dec, [facility] [place] [facility] [address] [id number] [place] [address]- 1996 Dec, [facility] [place] [facility] [address] [id number] [place] [address]- 3864 Nov, [facility] [place] [facility] [address] [id number] [place] [address]- 1947 Nov, [facility] [place] [facility] [address] [id number] [address]- 2247 Jun, [facility] [place] [facility] [address] [id number] [place] [address]- 3963 Jun, [facility] [place] [facility] [address] [id number] [place] [address]- 0178 Jun, [facility] [place] [facility] [address] [id number] [place] [address] Jun, [facility] [place] [facility] [address] [id number] [address]- 2211 Apr, [facility] [address] [id number] [place] [address]- 6320 Apr, [facility] [place] [facility] [address] [id number] [place] [address]- 4466 Apr, [facility] [address] [id number] [place] [address]- 7650 Mar, [facility] [place] [facility] [address] [id number] [place] [address]- 7584 Mar, [facility] [address] [id number] [place] [address]- 6150 Mar, [facility] [place] [facility] [address] [id number] [place] [address]- 9869 Mar, [facility] [address] [id number] [place] [address]- 2978 Nov, [facility] [address] [id number] [place] [address]- 9818 Nov, [facility] [address] [id number] [place] [address]- 8989 July, [facility] [address] [facility] [id number] [place] [address]- 9617 May, [facility] [address] [id number] [place] [address]- 3846 Mar, [facility] [place] [facility] [address] [id number] [place] [address]- 7901 Feb, [facility] [place] [facility] [address] [id number] [place] [address]- 4378 Feb, [facility] [place] [facility] [address] [id number] [place] [address]38 Feb, [facility] [place] [facility] [address] [facility] [id number] [place] [address]- 8245 Feb, [facility] [place] [facility] [address] [id number] [place] [address]- 7639 13 Jan, 2012 [facility] [place] [facility] [address] [id number] [place] [address]- 7447 Jan, [facility] [place] [facility] [address] [id number] [place] [address]- 4196 Jan, [facility] [place] [facility] [address] [id number] [place] [address]- 8179 Jan, [facility] [place] [facility] [address] [id number] [place] [address]- 7580 Jan, [facility] [place] [facility] [address] [id number] [place] [address]- 8505 Jan, [facility] [place] [facility] [address] [id number] [place] [address]- 6535 Jan, [facility] [place] [facility] [address] [id number] [place] [address]- 1113 Jan, [facility] [place] [facility] [address] [id number] [place] [address]- 5978 Jan, [facility] [place] [facility] [address] [id number] [place] [address]- 1129 Dec, [facility] [place] [facility] [address] [id number] [place] [address]- 7446 17 Dec, 2011 [facility] [place] [facility] [address] [id number] [place] [address]- 9917 16 Dec, 2011 [facility] [place] [facility] [address] [id number] [place] [address]- 1110 Dec, [facility] [place] [facility] [address] [id number] [place] [address]- 2510 Dec, [facility] [place] [facility] [address] [id number] [place] [address]- 4736 Dec, [facility] [place] [facility] [address] [id number] [place] [address]- 6631 Dec, [facility] [address] [facility] [id number] [address]- [address] Dec, [facility] [address] [facility] [id number] [address]- 5546 Dec, [facility] [address] [facility] [id number] [address] 2212 Dec, [facility] [address] [facility] [id number] [address]- 5920 Dec, [facility] [address] [facility] [id number] [address] 1388 Oct, [facility] [address] [address] 17[address] Oct, [facility] [address] [address] 7256 Feb, [facility] [address] [address] Feb, [facility] [address] [place] [id number] [address] 8865 Oct, [facility] [address] [address] Jan, [facility] [address] [place] [id number] [address]- 2049 Jan, IMMUNIZATIONS No Known Immunizations SOCIAL HISTORY Never Assessed REASON FOR VISIT ER Follow Up PLAN OF CARE VITAL SIGNS MEDICATIONS Medication Instructions Dosage Frequency Start Date End Date Duration Status PredniSONE 20 mg Orally twice a day 1 tablet 12h 15 Dec, 2017 18 Dec, 2017 3 days Active RESULTS No Results PROCEDURES No Known procedures INSTRUCTIONS MEDICATIONS ADMINISTERED No Known Medications MEDICAL (GENERAL) HISTORY Type Description Date Medical History irritable bowel syndrome Medical History substance abuse Medical History tachycardia Medical History palpitations Medical History hypertension Surgical History appendectomy Surgical History colonscopy-polyp found
--- OUTSIDE RECORDS SUMMARY | 2018-02-18 00:06 | XMS REPORT ---
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 Name Role Phone GABRIELLE CALI Unavailable PROBLEMS Type Condition ICD9-CM Code IOP57-YS Code Onset Dates Condition Status SNOMED Code Problem Mixed hyperlipidemia E78.2 Active 053007941 Problem Lumbar radiculopathy M54.16 Active 187041766 Problem Supraventricular arrhythmia I49.9 Active 05811007 Problem Adult periodontitis K05.30 Active 17510187 Problem Coronary artery disease involving [place] coronary artery of [place] heart without angina pectoris I25.10 Active [id number] ALLERGIES Substance Reaction Event Type Date Status Codeine Sulfate Unknown Drug Allergy Dec, Active ENCOUNTERS Encounter Location Date Diagnosis [place] [address] [address] Dec, Lumbar radiculopathy M54.16 and Supraventricular arrhythmia I49.9 [place] [id number] [place] [address] Dec, Onychomycosis B35.1 and Nail dystrophy L60.3 [place] [address] [address] Nov, [address] [address] 17 Nov, 2017 Lumbar radiculopathy M54.16 and Coronary artery disease involving [place] coronary artery of [place] heart without angina pectoris I25.10 [place] [address] [address] Jun, Lumbar radiculopathy M54.16 ; Mixed hyperlipidemia E78.2 and Coronary artery disease involving [place] coronary artery of [place] heart without angina pectoris I25.10 [facility] [address] [id number] [id number] 10 Mar, 2017 Dental examination Z01.20 [facility] [address] [id number] [place] [address]- [address] 13 Feb, 2017 Coronary artery disease involving [place] coronary artery of [place] heart without angina pectoris I25.10 [facility] [address] [facility] [id number], [place] [address] 12 Feb, 2017 Coronary artery disease involving [place] coronary artery of [place] heart without angina pectoris I25.10 [facility] [address] [facility] [id number] [place] [address] 07 Nov, 2016 Adult periodontitis K05.30 [facility] [id number] [place] [address]171- 5565 07 Nov, 2016 Dental examination Z01.20 [facility] [address] [place] [id number] [place] [address]74- 1701 10 Oct, 2016 Dental caries K02.9 [facility] [id number] [place] [id number] 09 Oct, 2016 Dental examination Z01.20 [facility] [address] [facility] [id number] [place] [address] 39351- 0022 28 Sep, 2016 Tooth pain K08.89 [facility] [address] [facility] [id number] [place] [address] 18556- 7967 26 Sep, 2016 Pain due to dental caries K02.9 [facility] [address] [id number] [place] [address]26- 2296 14 Sep, 2016 Pain due to dental caries K02.9 [facility] [address] [id number] [place] [id number] Sep, Dental caries K02.9 [facility] [address] [facility] [id number], [place] [address] 14 Sep, 2016 Dental examination Z01.20 [facility] [address] [facility] [id number] [place] [address]805- 1365 Sep, Dental caries K02.9 [facility] [id number] [place] [address] 01643- 5732 Sep, [facility] [address] [place] [id number] [place] [address]007- 49[address] July, Supraventricular arrhythmia I49.9 and Pain due to dental caries K02.9 [facility] [address] [place] [id number] [place] [id number] July, Dental examination Z01.20 [facility] [address] [place] [id number] [place] [address] 0[address]30- 0943 Mar, Onychomycosis B35.1 and Nail, ingrown L60.0 [place] [address] [place] [id number] [place] [address]- 3[address] Feb, Ingrown toenail without infection L60.0 [place] [address] [place] [id number] [place] [address] 36757- 6988 Oct, Bursitis of left elbow M70.32 and Bursal cyst of olecranon M71.329 [place] [address] [place] [id number] [place] [address]86- 5097 Oct, Effusion of left olecranon bursa M25.422 and Supraventricular arrhythmia I49.9 [place] [id number] [place] [address] 91645- 7102 Jun, Dental caries K02.9 and Dental examination Z01.20 [facility] [address] [place] [id number] [place] [address] 89853- 4876 04 Jun, 2015 Dental examination Z01.20 [facility] [address] [place] [id number] [place] [address] 21525- 8238 18 Feb, 2015 Supraventricular arrhythmia I49.9 and Bronchitis J40 [facility] [address] [place] [id number] [place] [address] 41196- 9163 Jan, [facility] [address] [id number] [address] Aug, Bronchitis 490 and Atherosclerosis of [place] arteries of the extremities, unspecified 440.20 [facility] [address] [id number] [place] [address] July, [facility] [address] [address] Jun, [facility] [address] [facility] [id number] [place] [address]27- 6[address] Jun, [facility] [address] [facility] [id number] [place] [address]- 74[address] Mar, [facility] [address], [place] [address] Mar, [facility] [address], [place] [address] 20[address] Feb, [facility] [address], [place] [address]- 12[address] Feb, [facility] [address] [place] [address]- 6[address] Feb, [facility] [address], [place] [address] 110[address] Feb, [facility] [address], [place] [address] Feb, [facility] [address] [id number], [place] [address] Feb, [facility] [address] [id number], [place] [address] 8[address] Jan, [facility] [address] [facility] [id number], [place] [address]- [address] Jan, [facility] [address] [place] [id number] [address]- 25[address] Jan, [facility] [address] [place] [id number] [place] [address]- 0768 Jan, [facility] [place] [facility] [address] [id number] [place] [address]- 3171 Jan, [facility] [place] [facility] [address] [id number] [place] [address]- 3439 Jan, [facility] [place] [facility] [address] [id number] [place] [address]- 9426 Dec, [facility] [place] [facility] [address] [id number] [place] [address]- 8646 Dec, [facility] [place] [facility] [address] [id number] [place] [address]- 3850 Dec, [facility] [place] [facility] [address] [id number] [place] [address]- 6449 Dec, [facility] [place] [facility] [address] [id number] [place] [address]- 0368 Nov, [facility] [place] [facility] [address] [id number] [place] [address]- 4835 Nov, [facility] [place] [facility] [address] [id number] [place] [address]- 6844 Jun, [facility] [place] [facility] [address] [id number] [place] [address]- 3456 Jun, [facility] [place] [facility] [address] [id number] [place] [address]- 5111 Jun, [facility] [place] [facility] [address] [id number] [place] [address]- 5996 Jun, [facility] [place] [facility] [address] [id number] [place] [address]- 0395 Apr, [facility] [place] [facility] [address] [id number] [place] [address]- 6471 Apr, [facility] [place] [facility] [address] [id number] [place] [address]- 5927 Apr, [facility] [place] [facility] [address] [id number] [place] [address]- 3923 Mar, [facility] [place] [facility] [address] [id number] [place] [address]- 8735 Mar, [facility] [place] [facility] [address] [id number] [place] [address]- 6836 Mar, [facility] [place] [facility] [address] [id number] [place] [address]- 4866 Mar, [facility] [address] [id number] [place] [address]- 9832 Nov, [facility] [place] [facility] [address] [id number] [place] [address]- 7449 Nov, [facility] [place] [facility] [address] [id number] [place] [address]- 5614 July, [facility] [address] [id number] [place] [address]- 3607 May, [facility] [place] [facility] [address] [id number] [place] [address]- 9323 Mar, [facility] [place] [facility] [address] [id number] [place] [address]- 0572 Feb, [facility] [place] [facility] [address] [id number] [place] [address]- 4122 Feb, [facility] [place] [facility] [address] [id number] [place] [address]- 5568 Feb, [facility] [place] [facility] [address] [id number] [place] [address]- 8563 Feb, [facility] [place] [facility] [address] [id number] [place] [address]- 9616 Jan, [facility] [place] [facility] [address] [id number] [place] [address]- 2546 Jan, [facility] [place] [facility] [address] [id number], [place] [address]- 4258 Jan, [facility] [place] [facility] [address] [id number] [place] [address]- 5612 08 Jan, 2012 [facility] [place] [facility] [address] [id number] [place] [address]- 4503 08 Jan, 2012 [facility] [place] [facility] [address] [id number] [place] [address]- 3945 Jan, [facility] [place] [facility] [address] [id number] [place] [address]- 0267 Jan, [facility] [place] [facility] [address] [id number] [place] [address]- 3846 Jan, [facility] [place] [facility] [address] [id number] [place] [address]- 8370 Jan, [facility] [place] [facility] [address] [facility] [id number], [place] [address]- 5364 Dec, [facility] [place] [facility] [address] [id number] [place] [address]- 8791 17 Dec, 2011 [facility] [place] [facility] [address] [id number], [place] [address]- 6319 16 Dec, 2011 [facility] [place] [facility] [address] [facility] [id number], [place] [address]- 3431 Dec, [facility] [place] [facility] [address] [id number], [place] [address]- 3616 12 Dec, 2011 [facility] [place] [facility] [address] [facility] [id number], [place] [address]- 7533 11 Dec, 2011 [facility] [place] [facility] [address] [id number], [place] [address]- 7452 11 Dec, 2011 [facility] [place] [facility] [address] [facility] [id number], [place] [address]- 4955 10 Dec, 2011 [facility] [place] [facility] [address] [facility] [id number] [place] [address]- 6326 10 Dec, 2011 [facility] [place] [facility] [address] [id number], [place] [address]- 7976 Dec, [facility] [address] [address] Dec, [facility] [address], [place] [address]- 2566 Oct, [facility] [address], [place] [address]- 7356 Oct, [facility] [address], [place] [address]- 6059 Feb, [facility] [address], [place] [address]- 3644 Feb, [facility] [address], [place] [address]- 5092 Oct, [facility] [address], [place] [address]- 5784 Jan, [facility] [address] [place] [id number], [place] [address]- 9375 Jan, IMMUNIZATIONS No Known Immunizations SOCIAL HISTORY Never Assessed REASON FOR VISIT Toenail removal, left foot -Damion W[facility]LEY PLAN OF CARE Activity Details Future/Pending Procedure NAIL REMOVAL PERMANENT (PARTIAL OR COMPLETE) VITAL SIGNS Height 73 in 2017-12-22 Weight 235 lbs 2017-12-22 Temperature 98.3 degrees Fahrenheit 2017-12-22 Heart Rate 65 bpm 2017-12-22 Respiratory Rate 20 2017-12-22 Oximetry 94 % 2017-12-22 BMI 31.00 kg/m2 2017-12-22 Blood pressure systolic 128 mmHg 2017-12-22 Blood pressure diastolic 70 mmHg 2017-12-22 MEDICATIONS Medication Instructions Dosage Frequency Start Date End Date Duration Status Tylenol Extra Strength 500 MG Orally every 6 hrs 2 tablets as needed 6h Active Metoprolol Tartrate 50 mg TAKE ONE TABLET BY MOUTH EVERY 12 HOURS (MUST HAVE APPOINTMENT FOR REFILL) 30 Active Lipitor 40 MG Orally Once a day 1 tablet 24h 30 Active RESULTS No Results PROCEDURES Procedure Date Ordered Result Body Site REMOVAL OF NAIL BED Dec 22, 2017 INSTRUCTIONS MEDICATIONS ADMINISTERED No Known Medications MEDICAL (GENERAL) HISTORY Type Description Date Medical History irritable bowel syndrome Medical History substance abuse Medical History tachycardia Medical History palpitations Medical History hypertension Surgical History appendectomy Surgical History colonscopy-polyp found
--- OUTSIDE RECORDS SUMMARY | 2018-02-18 00:06 | XMS REPORT ---
Author Author MAYA WOODY Camacho [facility] Address Unknown Care Team Providers Care Snubber Name Role Phone MAYA WOODY Unavailable PROBLEMS Type Condition ICD9-CM Code UNU61-ZF Code Onset Dates Condition Status SNOMED Code Problem Mixed hyperlipidemia E78.2 Active 801367349 Problem Lumbar radiculopathy M54.16 Active 931468446 Problem Supraventricular arrhythmia I49.9 Active 80235675 Problem Adult periodontitis K05.30 Active 07364148 Problem Coronary artery disease involving [place] coronary artery of [place] heart without angina pectoris I25.10 Active [id number] ALLERGIES Substance Reaction Event Type Date Status Codeine Sulfate Unknown Drug Allergy Mar, Active ENCOUNTERS Encounter Location Date Diagnosis [facility] [place] [id number] [place] [address]47- [address] Jun, Lumbar radiculopathy M54.16 ; Mixed hyperlipidemia E78.2 and Coronary artery disease involving [place] coronary artery of [place] heart without angina pectoris I25.10 [facility] [address] [id number] Mar, Dental examination Z01.20 [facility] [place] [id number] [place] [address] 66222- 2605 13 Feb, 2017 Coronary artery disease involving [place] coronary artery of [place] heart without angina pectoris I25.10 [facility] [place] [address] [address] 12 Feb, 2017 Coronary artery disease involving [place] coronary artery of [place] heart without angina pectoris I25.10 [facility] [address] [address] 07 Nov, 2016 Adult periodontitis K05.30 [facility] [place] [id number] [place] [address] 70994- 4689 Nov, Dental examination Z01.20 [facility] [place] [address] [id number] [address] Oct, Dental caries K02.9 [facility] [address] [id number] [place] [id number] 09 Oct, 2016 Dental examination Z01.20 [facility] [place] [address] [id number] [place] [address] 00880- 0144 Sep, Tooth pain K08.89 [facility] [place] [address] [id number] [place] [address] 62852- 6510 Sep, Pain due to dental caries K02.9 [facility] [place] [address] [id number] [place] [address] 85960- 3148 Sep, Pain due to dental caries K02.9 [facility] [address] [id number] [place] [id number] Sep, Dental caries K02.9 [facility] [place] [id number] [place] [address] 13879- 5899 Sep, Dental examination Z01.20 [facility] [place] [address] [id number] [place] [address] 53084- 1515 Sep, Dental caries K02.9 [facility] [place] [address] [facility] [id number] [place] [address] Sep, [facility] [place] [address] [facility] [id number] [place] [address] 47913- 2237 July, Supraventricular arrhythmia I49.9 and Pain due to dental caries K02.9 [facility] [address] [id number] [place] [id number] July, Dental examination Z01.20 [facility] [place] [address] [facility] [id number] [place] [address] Mar, Onychomycosis B35.1 and Nail, ingrown L60.0 [facility] [place] [address] [id number] [place] [address] 57809- 1541 Feb, Ingrown toenail without infection L60.0 [facility] [place] [id number] [place] [address] 12768- 0357 Oct, Bursitis of left elbow M70.32 and Bursal cyst of olecranon M71.329 [facility] [place] [id number] [place] [address] 16654- 7496 Oct, Effusion of left olecranon bursa M25.422 and Supraventricular arrhythmia I49.9 [facility] [id number] [place] [address] 85817- 8995 Jun, Dental caries K02.9 and Dental examination Z01.20 [facility] [id number] [place] [address] 56970- 9929 Jun, Dental examination Z01.20 [facility] [id number] [place] [address] 09775- 2394 Feb, Supraventricular arrhythmia I49.9 and Bronchitis J40 [facility] [id number] [place] [address] 20478- 2823 Jan, [facility] [place] [id number] [place] [address] 38081- 1994 Aug, Bronchitis 490 and Atherosclerosis of [place] arteries of the extremities, unspecified 440.20 [facility] [place] [id number] [place] [address] 57615- 0699 July, [facility] [place] [id number] [place] [address] 41204- 7781 Jun, [facility] [place] [id number] [place] [address] 12617- 8047 Jun, [facility] [place] [id number] [place] [address] 84777- 2512 Mar, [facility] [place] [id number] [place] [address] 75665- 6666 Mar, [facility] [place] [facility] [address] [id number] [place] [address] 4115 Feb, [facility] [place] [facility] [address] [id number] [place] [address] 3566 Feb, [facility] [place] [facility] [address] [id number] [place] [address] 3080 Feb, [facility] [place] [facility] [address] [id number] [place] [address]- 3764 Feb, [facility] [place] [facility] [address] [id number] [place] [address]- 3568 Feb, [facility] [place] [facility] [address] [id number] [place] [address]- 0751 Feb, [facility] [place] [facility] [address] [id number] [place] [address] 1973 Jan, [facility] [place] [facility] [address] [id number] [place] [address]- 5573 Jan, [facility] [place] [facility] [address] [id number] [place] [address]- 4830 Jan, [facility] [place] [facility] [address] [id number] [place] [address]- 6203 Jan, [facility] [place] [facility] [address] [id number] [place] [address]- 8681 Jan, [facility] [place] [facility] [address] [id number] [place] [address]- 0120 Jan, [facility] [place] [facility] [address] [id number] [place] [address]- 9001 Dec, [facility] [place] [facility] [address] [id number] [place] [address]- 2370 Dec, [facility] [place] [facility] [address] [id number] [place] [address]- 4099 Dec, [facility] [place] [facility] [address] [id number] [place] [address]- 9334 Dec, [facility] [place] [facility] [address] [id number] [place] [address]- 8612 Nov, [facility] [place] [facility] [address] [id number] [place] [address]- 9813 Nov, [facility] [place] [facility] [address] [id number] [place] [address]- 2042 Jun, [facility] [place] [facility] [address] [id number] [place] [address]- 7812 Jun, [facility] [place] [facility] [address] [id number] [place] [address]- 3729 Jun, [facility] [place] [facility] [address] [id number] [place] [address]- 5046 Jun, [facility] [place] [facility] [address] [facility] [id number] [place] [address]- 0597 Apr, [facility] [place] [facility] [address] [id number] [place] [address]- 1994 Apr, [facility] [place] [facility] [address] [id number] [place] [address]- 5942 Apr, [facility] [place] [facility] [address] [id number] [place] [address]- 4741 Mar, [facility] [place] [facility] [address] [id number] [place] [address]- 6728 Mar, [facility] [place] [facility] [address] [id number] [place] [address]- 9506 Mar, [facility] [place] [facility] [address] [id number] [place] [address]- 1244 Mar, [facility] [place] [facility] [address] [id number] [place] [address]- 0109 18 Nov, 2012 [facility] [place] [facility] [address] [id number] [place] [address]- 5206 10 Nov, 2012 [facility] [place] [facility] [address] [id number] [place] [address]- 2698 July, [facility] [place] [facility] [address] [id number] [place] [address]- 5571 May, [facility] [place] [facility] [address] [id number] [place] [address]- 1012 Mar, [facility] [place] [facility] [address] [id number] [place] [address]- 8495 Feb, [facility] [place] [facility] [address] [id number] [place] [address]- 4528 Feb, [facility] [place] [facility] [address] [id number] [place] [address]- 4635 Feb, [facility] [place] [facility] [address] [id number] [place] [address]- 5972 Feb, [facility] [place] [facility] [address] [id number] [place] [address]- 5369 Jan, [facility] [place] [facility] [address] [id number] [place] [address]- 9128 Jan, [facility] [place] [facility] [address] [id number] [place] [address]- 7012 Jan, [facility] [place] [facility] [address] [id number] [place] [address]- 9483 Jan, [facility] [place] [facility] [address] [id number] [place] [address]- 9101 Jan, [facility] [place] [facility] [address] [id number] [place] [address]- 8942 Jan, [facility] [place] [facility] [address] [id number] [place] [address]- 7369 Jan, [facility] [place] [facility] [address] [id number] [place] [address]- 3420 Jan, [facility] [place] [facility] [address] [id number] [place] [address]- 4433 Jan, [facility] [place] [facility] [address] [id number] [place] [address]- 6861 17 Dec, 2011 [facility] [place] [facility] [address] [id number] [place] [address]- 6881 17 Dec, 2011 [facility] [place] [facility] [address] [id number] [place] [address]- 4756 16 Dec, 2011 [facility] [place] [facility] [address] [id number] [place] [address]- 6131 12 Dec, 2011 [facility] [place] [facility] [address] [id number] [place] [address]- 9595 12 Dec, 2011 [facility] [place] [facility] [address] [id number] [place] [address]- 3844 Dec, [facility] [place] [facility] [address] [id number] [place] [address]- 3567 11 Dec, 2011 [facility] [place] [facility] [address] [id number] [place] [address]- 3860 10 Dec, 2011 [facility] [place] [facility] [address] [id number] [place] [address]- 9718 10 Dec, 2011 [facility] [place] [facility] [address] [id number] [place] [address]- 3960 10 Dec, 2011 [facility] [place] [facility] [address] [id number] [place] [address]- 7933 10 Dec, 2011 [facility] [place] [facility] [address] [id number] [place] [address]- 1048 Oct, [facility] [place] [facility] [address] [id number] [place] [address]- 4952 Oct, [facility] [place] [facility] [address] [id number] [place] [address]- 5065 Feb, [facility] [place] [facility] [address] [id number] [place] [address]- 9966 Feb, [facility] [place] [facility] [address] [facility] [id number] [place] [address]- 5348 Oct, [facility] [place] [address] [facility] [id number] [place] [address]- 2170 Jan, [facility] [place] [address] [facility] [id number] [place] [address]- 0877 Jan, IMMUNIZATIONS No Known Immunizations SOCIAL HISTORY Never Assessed REASON FOR VISIT nancy PLAN OF CARE Activity Details Follow Up prn Reason:refer #14 VITAL SIGNS Blood pressure systolic 136 mmHg 2017-04-01 Blood pressure diastolic 90 mmHg 2017-04-01 MEDICATIONS Medication Instructions Dosage Frequency Start Date End Date Duration Status Ibuprofen 200 MG Orally every 6 hrs 1 tablet with food or milk as needed 6h Active Clindamycin HCl 150 MG Orally every 6 hrs 2 capsules 6h 7 days Active Tylenol Extra Strength 500 MG Orally every 6 hrs 2 tablets as needed 6h Active Metoprolol Tartrate 50 mg TAKE ONE TABLET BY MOUTH EVERY 12 HOURS (MUST HAVE APPOINTMENT FOR REFILL) 30 Active RESULTS No Results PROCEDURES Procedure Date Ordered Result Body Site LTD ORAL EVALUATION - PROBLEM FOCUS Apr 01, 2017 INTRAORL-PERIAPICAL 1 FILM [id number] Apr 01, 2017 BITEWING - SINGLE FILM Apr 01, 2017 INSTRUCTIONS MEDICATIONS ADMINISTERED No Known Medications MEDICAL (GENERAL) HISTORY Type Description Date Medical History irritable bowel syndrome Medical History substance abuse Medical History tachycardia Medical History palpitations Medical History hypertension Surgical History appendectomy Surgical History colonscopy-polyp found
--- OUTSIDE RECORDS SUMMARY | 2018-02-18 00:06 | XMS REPORT ---
Author Author LUIS ENRIQUE ALLEN Organization [facility] Address [address] [place] [address] Care Team Providers Care Yeast Culture Developer Name Role Phone LUIS ENRIQUE ALLEN Unavailable PROBLEMS Type Condition ICD9-CM Code DTT35-PN Code Onset Dates Condition Status SNOMED Code Problem Mixed hyperlipidemia E78.2 Active 600434549 Problem Lumbar radiculopathy M54.16 Active 598240651 Problem Supraventricular arrhythmia I49.9 Active 29589917 Problem Adult periodontitis K05.30 Active 67029098 Problem Coronary artery disease involving tribal coronary artery of tribal heart without angina pectoris I25.10 Active [id number] ALLERGIES No Information ENCOUNTERS Encounter Location Date Diagnosis [place] [address] [address] 04 Dec, 2017 Lumbar radiculopathy M54.16 and Supraventricular arrhythmia I49.9 [place] [address] [address] 02 Dec, 2017 Onychomycosis B35.1 and Nail dystrophy L60.3 [place] [address] [address] Nov, [place] [address] [address] 17 Nov, 2017 Lumbar radiculopathy M54.16 and Coronary artery disease involving tribal coronary artery of tribal heart without angina pectoris I25.10 [place] [address] [address] 12 Jun, 2017 Lumbar radiculopathy M54.16 ; Mixed hyperlipidemia E78.2 and Coronary artery disease involving tribal coronary artery of tribal heart without angina pectoris I25.10 [facility] [address] [id number] 10 Mar, 2017 Dental examination Z01.20 [facility] [address] [facility] [id number], [place] [address] 13 Feb, 2017 Coronary artery disease involving tribal coronary artery of tribal heart without angina pectoris I25.10 [facility] [address] [address] 12 Feb, 2017 Coronary artery disease involving tribal coronary artery of tribal heart without angina pectoris I25.10 [facility] [address] [facility] [id number], [place] [address] 07 Nov, 2016 Adult periodontitis K05.30 [facility] [address], [place] [address] 07 Nov, 2016 Dental examination Z01.20 [facility] [address], [place] [address] 10 Oct, 2016 Dental caries K02.9 [facility] [address] [place] [id number] [place] [id number] 09 Oct, 2016 Dental examination Z01.20 [facility] [address] [place] [address] 28 Sep, 2016 Tooth pain K08.89 [facility] [address], [place] [address] 26 Sep, 2016 Pain due to dental caries K02.9 [facility] [address], [place] [address] 14 Sep, 2016 Pain due to dental caries K02.9 [facility] [address] [id number] [id number] 14 Sep, 2016 Dental caries K02.9 [facility] [address] [id number] [address] 14 Sep, 2016 Dental examination Z01.20 [facility] [address] [facility] [id number], [place] [address] 14 Sep, 2016 Dental caries K02.9 [facility] [address] [place] [id number] [place] [address] Sep, [facility] [address] [place] [id number] [place] [address] July, Supraventricular arrhythmia I49.9 and Pain due to dental caries K02.9 [facility] [address] [place] [id number] [place] [id number] July, Dental examination Z01.20 [facility] [address] [place] [id number] [place] [address] Mar, Onychomycosis B35.1 and Nail, ingrown L60.0 [place] [address] [place] [id number] [place] [address] Feb, Ingrown toenail without infection L60.0 [place] [address] [address] Oct, Bursitis of left elbow M70.32 and Bursal cyst of olecranon M71.329 [place] [address] [place] [id number] [place] [address] Oct, Effusion of left olecranon bursa M25.422 and Supraventricular arrhythmia I49.9 [place] [address] [place] [id number] [place] [address] Jun, Dental caries K02.9 and Dental examination Z01.20 [facility] [address] [place] [id number] [place] [address]- [address] Jun, Dental examination Z01.20 [facility] [address] [place] [id number] [place] [address]- [address] 18 Feb, 2015 Supraventricular arrhythmia I49.9 and Bronchitis J40 [place] [address] [place] [id number] [place] [address]- [address] Jan, [facility] [address] [address] Aug, Bronchitis 490 and Atherosclerosis of tribal arteries of the extremities, unspecified 440.20 [facility] [address] [id number], [place] [address] July, [facility] [address] [facility] [id number], [place] [address] Jun, [facility] [address] [facility] [id number] [place] [address]- [address]167 Jun, [facility] [address] [facility] [id number] [address] Mar, [facility] [address] [place] [id number] [place] [address], [place] Mar, [facility] [address] [place] [id number], [place] [address] Feb, [facility] [address] [place] [id number], [place] [address] Feb, [facility] [address] [place] [id number], [place] [address] Feb, [facility] [address] [place] [id number], [place] [address] 5[address] Feb, [facility] [address] [place] [id number], [place] [address] 20[address] Feb, [facility] [address] [place] [id number], [place] [address] 9[address] Feb, [facility] [address] [facility] [id number] [address] Jan, [facility] [address] [id number] [address] Jan, [facility] [address] [facility] [id number], [place] [address]- [address] Jan, [facility] [address] [place] [id number], [place] [address] 47[address] Jan, [facility] [place] [facility] [address] [id number] [place] [address]- 8079 Jan, [facility] [place] [facility] [address] [id number] [place] [address]- 8352 Jan, [facility] [place] [facility] [address] [facility] [id number] [place] Dec, [facility] [place] [facility] [address] [id number] [place] [address]- 8163 Dec, [facility] [place] [facility] [address] [id number] [place] [address]- 5874 Dec, [facility] [place] [facility] [address] [id number] [place] [address]- 1999 Dec, [facility] [place] [facility] [address] [facility] [id number] [place] [address]- 9280 Nov, [facility] [place] [facility] [address] [id number] [place] [address]- 4855 Nov, [facility] [place] [facility] [address] [id number] [place] [address]- 0720 Jun, [facility] [place] [facility] [address] [id number] [place] [address]- 9074 Jun, [facility] [place] [facility] [address] [id number], [place] [address]- 1290 Jun, [facility] [place] [facility] [address] [id number], [place] [address]- 2232 Jun, [facility] [place] [facility] [address] [id number] [place] [address]- 6786 Apr, [facility] [place] [facility] [address] [id number], [place] [address]- 0627 Apr, [facility] [place] [facility] [address] [facility] [id number], [place] [address]- 0075 Apr, [facility] [place] [facility] [address] [id number] [place] [address]- 2106 Mar, [facility] [address] [id number] [place] [address]- 6896 Mar, [facility] [address] [id number] [place] [address]- 8493 Mar, [facility] [address] [id number] [place] [address]- 1661 Mar, [facility] [address] [id number] [place] [address]- 4676 Nov, [facility] [address] [id number] [place] [address]- 7158 Nov, [facility] [address] [id number] [place] [address]- 8677 July, [facility] [address] [id number] [place] [address]- 5928 May, [facility] [address] [id number] [place] [address]- 3864 Mar, [facility] [address] [id number] [place] [address]- 3380 Feb, [facility] [address] [id number] [place] [address]- 4813 Feb, [facility] [address] [id number] [place] [address]- 3407 Feb, [facility] [address] [id number] [place] [address]- 3614 Feb, [facility] [place] [facility] [address] [id number] [place] [address]- 2733 Jan, [facility] [address] [id number] [place] [address]- 8006 Jan, [facility] [address] [id number] [place] [address]- 7727 Jan, [facility] [place] [facility] [address] [id number] [place] [address]- 1505 08 Jan, 2012 [facility] [place] [facility] [address] [id number] [place] [address]- 6593 Jan, [facility] [place] [facility] [address] [id number] [place] [address]- 2277 Jan, [facility] [place] [facility] [address] [id number] [place] [address]- 3403 Jan, [facility] [place] [facility] [address] [id number] [place] [address]- 0343 Jan, [facility] [place] [facility] [address] [id number] [place] [address]- 1559 Jan, [facility] [place] [facility] [address] [facility] [id number] [place] [address]- 8301 Dec, [facility] [place] [facility] [address] [id number], [place] [address]- 5044 17 Dec, 2011 [facility] [place] [facility] [address] [facility] [id number] [place] [address]- 3155 16 Dec, 2011 [facility] [place] [facility] [address] [facility] [id number], [place] [address]- 3533 Dec, [facility] [place] [facility] [address] [facility] [id number], [place] [address]- 2997 12 Dec, 2011 [facility] [place] [facility] [address] [id number], [place] [address]- 9197 Dec, [facility] [place] [facility] [address] [id number], [place] [address]- 8826 11 Dec, 2011 [facility] [place] [facility] [address] [id number], [place] [address]- 4185 10 Dec, 2011 [facility] [place] [facility] [address] [facility] [id number], [place] [address]- 8909 10 Dec, 2011 [facility] [place] [facility] [address] [id number], [place] [address]- 6[address] Dec, [facility] [address] [place] [id number], [place] [address]- [address] Dec, [facility] [address] [place] [id number], [place] [address]- 8196 Oct, [facility] [address] [place] [id number], [place] [address]- 1210 Oct, [facility] [address], [place] [address]- 5178 Feb, [facility] [address] [place] [id number], [place] [address]- 8[address] Feb, [facility] [address] [place] [id number], [place] [address]- 2733 Oct, [facility] [address] [place] [id number], [place] [address]- 8[address] Jan, [facility] [address] [id number] [address] [address] Jan, IMMUNIZATIONS No Known Immunizations SOCIAL HISTORY Never Assessed REASON FOR VISIT MRI results PLAN OF CARE VITAL SIGNS MEDICATIONS Unknown Medications RESULTS No Results PROCEDURES No Known procedures INSTRUCTIONS MEDICATIONS ADMINISTERED No Known Medications MEDICAL (GENERAL) HISTORY Type Description Date Medical History irritable bowel syndrome Medical History substance abuse Medical History tachycardia Medical History palpitations Medical History hypertension Surgical History appendectomy Surgical History colonscopy-polyp found
--- OUTSIDE RECORDS SUMMARY | 2018-02-18 00:06 | XMS REPORT ---
Author Author GABRIELLE CALI [facility] Address [address] [place] [address] Care Team Providers Care Seo Manager Name Role Phone KARELY GABRIELLE Unavailable PROBLEMS Type Condition ICD9-CM Code [id number] Code Onset Dates Condition Status SNOMED Code Problem Dental examination Z01.20 Active 874598930 Problem Coronary artery disease involving soboba coronary artery of soboba heart without angina pectoris I25.10 Active 8651348895080 Problem Supraventricular arrhythmia I49.9 Active 49489326 ALLERGIES Substance Reaction Event Type Date Status Codeine Sulfate Unknown Drug Allergy Mar, Active SOCIAL HISTORY No smoking Hx information available PLAN OF CARE VITAL SIGNS Height 73 in 2016-03-25 Weight 226.7 lbs 2016-03-25 Temperature 98.0 degrees Fahrenheit 2016-03-25 Heart Rate 80 bpm 2016-03-25 Respiratory Rate 18 2016-03-25 BMI 29.91 kg/m2 2016-03-25 Blood pressure systolic 116 mmHg 2016-03-25 Blood pressure diastolic 84 mmHg 2016-03-25 MEDICATIONS Medication Instructions Dosage Frequency Start Date End Date Duration Status Metoprolol Tartrate 50 MG Orally, needs to establish care every 12 hrs 1 tablet 12h Active RESULTS No Results PROCEDURES Procedure Date Ordered Related Diagnosis Body Site NAIL REMOVAL PERMANENT (PARTIAL OR COMPLETE) 2016-03-25 N/A REMOVAL OF NAIL BED Mar 25, 2016 Office Visit, Est Pt., Level 2 Mar 25, 2016 IMMUNIZATIONS No Known Immunizations
--- OUTSIDE RECORDS SUMMARY | 2018-02-18 00:06 | XMS REPORT ---
Author Author LUIS ENRIQUE ALLEN [facility] Address [address] [place] [address] Care Team Providers Care Environmental Geologist Name Role Phone LUIS ENRIQUE ALLEN Unavailable PROBLEMS Type Condition ICD9-CM Code WDI51-DC Code Onset Dates Condition Status SNOMED Code Problem Dental examination Z01.20 Active 368809316 Problem Coronary artery disease involving yurok coronary artery of yurok heart without angina pectoris I25.10 Active 4207233059338 Problem Supraventricular arrhythmia I49.9 Active 95380128 ALLERGIES Substance Reaction Event Type Date Status Codeine Sulfate Unknown Drug Allergy Feb, Active SOCIAL HISTORY No smoking Hx information available PLAN OF CARE VITAL SIGNS Height 73 in 2016-03-10 Weight 225.3 lbs 2016-03-10 Temperature 98.3 degrees Fahrenheit 2016-03-10 Heart Rate 102 bpm 2016-03-10 Respiratory Rate 20 2016-03-10 BMI 29.72 kg/m2 2016-03-10 Blood pressure systolic 117 mmHg 2016-03-10 Blood pressure diastolic 82 mmHg 2016-03-10 MEDICATIONS Medication Instructions Dosage Frequency Start Date End Date Duration Status Metoprolol Tartrate 50 MG Orally, needs to establish care every 12 hrs 1 tablet 12h Active RESULTS No Results PROCEDURES Procedure Date Ordered Related Diagnosis Body Site Office Visit, Est Pt., Level 2 Mar 10, 2016 IMMUNIZATIONS No Known Immunizations
--- OUTSIDE RECORDS SUMMARY | 2018-02-18 00:06 | XMS REPORT ---
Author Author LUIS ENRIQUE ALLEN Organization [facility] Address [address] [place] [address] Care Team Providers Care Sand Wheeler Name Role Phone LUIS ENRIQUE ALLEN Unavailable PROBLEMS Type Condition ICD9-CM Code [id number] Code Onset Dates Condition Status SNOMED Code Problem Mixed hyperlipidemia E78.2 Active 118908549 Problem Lumbar radiculopathy M54.16 Active 832294508 Problem Supraventricular arrhythmia I49.9 Active 07384158 Problem Adult periodontitis K05.30 Active 06045991 Problem Coronary artery disease involving [place] coronary artery of [place] heart without angina pectoris I25.10 Active [id number] ALLERGIES Substance Reaction Event Type Date Status Codeine Sulfate Unknown Drug Allergy Jun, Active ENCOUNTERS Encounter Location Date Diagnosis [facility] [id number] [place] [address] 40559- 4671 Jun, Lumbar radiculopathy M54.16 ; Mixed hyperlipidemia E78.2 and Coronary artery disease involving [place] coronary artery of [place] heart without angina pectoris I25.10 [facility] [id number] [place] [address] [id number] 10 Mar, 2017 Dental examination Z01.20 [facility] [id number] [place] [address] 22595- 4702 13 Feb, 2017 Coronary artery disease involving [place] coronary artery of [place] heart without angina pectoris I25.10 [facility] [id number] [place] [address] 24547- 5360 12 Feb, 2017 Coronary artery disease involving [place] coronary artery of [place] heart without angina pectoris I25.10 [facility] [id number] [place] [address] 23745 -7996 07 Nov, 2016 Adult periodontitis K05.30 [facility] [id number] [address] 07 Nov, 2016 Dental examination Z01.20 [facility] [address] [id number] [place] [address] 21802- 2466 Oct, Dental caries K02.9 [facility] [address] [id number] [id number] 09 Oct, 2016 Dental examination Z01.20 [facility] [address] [id number] [place] [address] 57054- 1251 Sep, Tooth pain K08.89 [facility] [address] [id number] [place] [address] 70172- 9996 Sep, Pain due to dental caries K02.9 [facility] [address] [id number] [place] [address] 77496- 6932 Sep, Pain due to dental caries K02.9 [facility] [id number] [place] [address] [id number] Sep, Dental caries K02.9 [facility] [address] [id number] [place] [address] 43347- 2399 Sep, Dental examination Z01.20 [facility] [address] [id number] [place] [address] 53307- 0828 Sep, Dental caries K02.9 [facility] [address] [id number] [address] 9027 Sep, [facility] [address] [facility] [id number] [place] [address] 94632- 7381 July, Supraventricular arrhythmia I49.9 and Pain due to dental caries K02.9 [facility] [address] [id number] July, Dental examination Z01.20 [facility] [address] [facility] [id number] [address] Mar, Onychomycosis B35.1 and Nail, ingrown L60.0 [facility] [id number] [place] [address] 81117- 7361 Feb, Ingrown toenail without infection L60.0 [facility] [address] [address]- 0384 Oct, Bursitis of left elbow M70.32 and Bursal cyst of olecranon M71.329 [facility] [address] [address]442- 7826 Oct, Effusion of left olecranon bursa M25.422 and Supraventricular arrhythmia I49.9 [place] [address] [address]57- 1395 Jun, Dental caries K02.9 and Dental examination Z01.20 [place] [address] 68493- 1364 Jun, Dental examination Z01.20 [place] [address] 69452- 1380 Feb, Supraventricular arrhythmia I49.9 and Bronchitis J40 [place] [address] 30291- 0394 Jan, [facility] [id number] [place] [address] 44804- 3596 24 Aug, 2014 Bronchitis 490 and Atherosclerosis of [place] arteries of the extremities, unspecified 440.20 [facility] [id number] [place] [address] 91662- 4678 July, [facility] [id number] [place] [address] 50360- 9009 Jun, [facility] [address] 03576- 0878 Jun, [facility] [id number] [place] [address] 52227- 0801 Mar, [facility] [address] 35747- 7245 Mar, [facility] [place] [facility] [address] [id number] [place] [address] 7375 Feb, [facility] [place] [facility] [address] [id number] [place] [address]- 5753 Feb, [facility] [place] [facility] [address] [id number] [place] [address]- 2374 Feb, [facility] [place] [facility] [address] [id number] [place] [address]- 1647 Feb, [facility] [place] [facility] [address] [id number] [place] [address]- 0247 Feb, [facility] [place] [facility] [address] [id number] [place] [address]- 7543 Feb, [facility] [place] [facility] [address] [id number] [place] [address]- 6605 Jan, [facility] [place] [facility] [address] [id number] [place] [address]- 9487 Jan, [facility] [place] [facility] [address] [id number] [place] [address]- 3732 Jan, [facility] [place] [facility] [address] [id number] [place] [address]- 3128 Jan, [facility] [place] [facility] [address] [id number], [place] [address] 9462 Jan, [facility] [place] [facility] [address] [id number], [place] [address]- 1105 Jan, [facility] [place] [facility] [address] [id number] [place] [address]- 9091 Dec, [facility] [place] [facility] [address] [id number] [place] [address]- 7940 Dec, [facility] [place] [facility] [address] [id number] [place] [address]- 5929 Dec, [facility] [place] [facility] [address] [id number] [place] [address]- 2947 Dec, [facility] [address] [id number] [place] [address]- 4534 Nov, [facility] [place] [facility] [address] [id number] [place] [address]- 7256 Nov, [facility] [place] [facility] [address] [id number] [place] [address]- 8477 Jun, [facility] [place] [facility] [address] [id number] [place] [address]- 5417 Jun, [facility] [place] [facility] [address] [id number] [place] [address]- 7962 Jun, [facility] [place] [facility] [address] [id number] [place] [address]- 3103 Jun, [facility] [place] [facility] [address] [id number] [place] [address]- 2435 Apr, [facility] [place] [facility] [address] [id number] [place] [address]- 6171 Apr, [facility] [place] [facility] [address] [id number] [place] [address]- 1128 Apr, [facility] [place] [facility] [address] [id number] [place] [address]- 1234 Mar, [facility] [place] [facility] [address] [id number] [place] [address]- 7138 Mar, [facility] [place] [facility] [address] [id number] [place] [address]- 1279 Mar, [facility] [place] [facility] [address] [id number] [place] [address]- 9134 Mar, [facility] [place] [facility] [address] [id number] [place] [address]- 6760 18 Nov, 2012 [facility] [place] [facility] [address] [id number] [place] [address]- 0449 Nov, [facility] [place] [facility] [address] [id number] [place] [address]- 2751 July, [facility] [place] [facility] [address] [id number] [place] [address]- 5677 May, [facility] [place] [facility] [address] [facility] [id number] [place] [address]- 7178 Mar, [facility] [place] [facility] [address] [id number] [place] [address]- 4073 Feb, [facility] [place] [facility] [address] [id number] [place] [address]- 6678 Feb, [facility] [place] [facility] [address] [id number] [place] [address]- 2437 Feb, [facility] [place] [facility] [address] [id number] [place] [address]- 1125 Feb, [facility] [place] [facility] [address] [id number] [place] [address]- 8449 Jan, [facility] [place] [facility] [address] [id number] [place] [address]- 1795 Jan, [facility] [place] [facility] [address] [facility] [id number] [place] [address]- 8579 Jan, [facility] [place] [facility] [address] [id number], [place] [address]- 4379 Jan, [facility] [place] [facility] [address] [id number], [place] [address]- 8325 Jan, [facility] [place] [facility] [address] [id number] [place] [address]- 5441 Jan, [facility] [place] [facility] [address] [id number], [place] [address]- 0817 Jan, [facility] [place] [facility] [address] [facility] [id number], [place] [address]- 5127 Jan, [facility] [place] [facility] [address] [id number] [place] [address]- 4298 07 Jan, 2012 [facility] [place] [facility] [address] [id number] [place] [address]- 2795 17 Dec, 2011 [facility] [place] [facility] [address] [id number] [place] 5476 17 Dec, 2011 [facility] [place] [facility] [address] [id number] [place] [address]- 0367 16 Dec, 2011 [facility] [place] [facility] [address] [id number] [place] [address]- 1255 12 Dec, 2011 [facility] [place] [facility] [address] [id number] [place] [address]- 7272 12 Dec, 2011 [facility] [place] [facility] [address] [id number] [place] [address]- 0910 11 Dec, 2011 [facility] [place] [facility] [address] [id number] [place] [address]- 8859 11 Dec, 2011 [facility] [place] [facility] [address] [id number] [place] [address]- 6578 10 Dec, 2011 [facility] [place] [facility] [address] [id number] [place] [address]- 6302 10 Dec, 2011 [facility] [place] [facility] [address] [id number] [place] [address]- 8111 10 Dec, 2011 [facility] [place] [facility] [address] [id number] [place] [address]- 3325 10 Dec, 2011 [facility] [place] [facility] [address] [id number] [place] [address]- 1937 Oct, [facility] [place] [facility] [address] [id number] [place] [address]- 3023 Oct, [facility] [place] [facility] [address] [id number] [place] [address]- 6027 Feb, [facility] [place] [facility] [address] [id number] [place] [address]- 7066 Feb, [facility] [address] [facility] [id number] [place] [address]- 9406 Oct, [facility] [address] [facility] [id number], [place] [address]- 4576 Jan, [facility] [address] [facility] [id number], [place] [address]- 1746 Jan, IMMUNIZATIONS No Known Immunizations SOCIAL HISTORY Never Assessed REASON FOR VISIT left Pain/hip-[place] MARYJANE PLAN OF CARE Activity Details Follow Up 3 Months Reason: VITAL SIGNS Height 73 in 2017-07-02 Weight 238.9 lbs 2017-07-02 Temperature 98.3 degrees Fahrenheit 2017-07-02 Heart Rate 76 bpm 2017-07-02 Respiratory Rate 18 2017-07-02 BMI 31.52 kg/m2 2017-07-02 Blood pressure systolic 134 mmHg 2017-07-02 Blood pressure diastolic 82 mmHg 2017-07-02 MEDICATIONS Medication Instructions Dosage Frequency Start Date End Date Duration Status Metoprolol Tartrate 50 mg TAKE ONE TABLET BY MOUTH EVERY 12 HOURS (MUST HAVE APPOINTMENT FOR REFILL) 30 Active Tylenol Extra Strength 500 MG Orally every 6 hrs 2 tablets as needed 6h Active Lipitor 40 MG Orally Once a day 1 tablet 24h Jun, 30 day(s) Active RESULTS No Results PROCEDURES No Known procedures INSTRUCTIONS MEDICATIONS ADMINISTERED No Known Medications MEDICAL (GENERAL) HISTORY Type Description Date Medical History irritable bowel syndrome Medical History substance abuse Medical History tachycardia Medical History palpitations Medical History hypertension Surgical History appendectomy Surgical History colonscopy-polyp found
--- OUTSIDE RECORDS SUMMARY | 2018-02-18 00:07 | XMS REPORT ---
Author Author LUIS ENRIQUE ALLEN Organization [facility] Address [address] [place] [address] Care Team Providers Care Wing Coverer Name Role Phone LUIS ENRIQUE ALLEN Unavailable PROBLEMS Type Condition ICD9-CM Code [id number] Code Onset Dates Condition Status SNOMED Code Problem Adult periodontitis K05.30 Active 33833559 Problem Coronary artery disease involving akutan coronary artery of akutan heart without angina pectoris I25.10 Active 3607243830455 Problem Supraventricular arrhythmia I49.9 Active 01499083 ALLERGIES Substance Reaction Event Type Date Status Codeine Sulfate Unknown Drug Allergy Sep, Active ENCOUNTERS Encounter Location Date Diagnosis [facility] [id number] [place] [address] [phone] Mar, Dental examination Z01.20 [facility] [id number] [place] [address] 18124- 2438 13 Feb, 2017 Coronary artery disease involving akutan coronary artery of akutan heart without angina pectoris I25.10 [facility] [id number] [place] [address] 78705- 4790 12 Feb, 2017 Coronary artery disease involving akutan coronary artery of akutan heart without angina pectoris I25.10 [facility] [id number] [place] [address] 33098 -6617 07 Nov, 2016 Adult periodontitis K05.30 [facility] [id number] [place] [address] 37644- 7086 07 Nov, 2016 Dental examination Z01.20 [facility] [id number] [place] [address] 56207- 7413 10 Oct, 2016 Dental caries K02.9 [facility] [id number] [place] [address] [phone] 09 Oct, 2016 Dental examination Z01.20 [facility] [address] [facility] [id number] [address] Sep, Tooth pain K08.89 [facility] [address] [facility] [id number] [place] [address] 93813- 6426 Sep, Pain due to dental caries K02.9 [facility] [id number] [place] [address] 11738- 0826 Sep, Pain due to dental caries K02.9 [facility] [address] [facility] [id number] [place] [address] [id number] Sep, Dental caries K02.9 [facility] [id number] [place] [address] 28223- 8586 Sep, Dental examination Z01.20 [facility] [id number] [place] [address] 52649- 0973 Sep, Dental caries K02.9 [facility] [id number] [place] [address] 41338- 8831 Sep, [facility] [id number] [place] [address] 47875- 3698 July, Supraventricular arrhythmia I49.9 and Pain due to dental caries K02.9 [facility] [address] [id number] July, Dental examination Z01.20 [facility] [id number] [place] [address] 91643- 3548 Mar, Onychomycosis B35.1 and Nail, ingrown L60.0 [facility] [id number] [place] [address] 23466- 5851 Feb, Ingrown toenail without infection L60.0 [facility] [address] [id number] [address] Oct, 2016 Bursitis of left elbow M70.32 and Bursal cyst of olecranon M71.329 [facility] [id number] [place] [address] 46825- 2400 Oct, Effusion of left olecranon bursa M25.422 and Supraventricular arrhythmia I49.9 [facility] [id number] [place] [address] 45607- 1836 Jun, Dental caries K02.9 and Dental examination Z01.20 [facility] [id number] [place] [address] 50540- 7613 Jun, Dental examination Z01.20 [facility] [id number] [place] [address] 27221- 2251 Feb, Supraventricular arrhythmia I49.9 and Bronchitis J40 [facility] [id number] [place] [address] 25313- 6024 Jan, [facility] [id number] [place] [address] 06385- 4936 Aug, Bronchitis 490 and Atherosclerosis of akutan arteries of the extremities, unspecified 440.20 [facility] [id number] [place] [address] 70019- 0306 July, [facility] [id number] [place] [address] 68084- 6844 Jun, [facility] [id number] [place] [address] 42320- 2651 Jun, [facility] [id number] [place] [address] 28354- 4775 Mar, [facility] [id number] [place] [address] 83229- 5652 Mar, [facility] [id number] [place] [address] 70996- 2507 Feb, [facility] [id number] [place] [address] 15621- 4626 Feb, [facility] [id number] [place] [address] 42083- 2637 Feb, [facility] [place] [facility] [address] [id number] [place] [address] 3001 Feb, [facility] [place] [facility] [address] [id number] [place] 4[address] Feb, [facility] [place] [facility] [address] [id number] [place] [address]- 2826 Feb, [facility] [place] [facility] [address] [id number] [place] [address]- 1646 Jan, [facility] [place] [facility] [address] [id number] [place] [address]- 6088 Jan, [facility] [place] [facility] [address] [id number] [place] [address]- 9772 Jan, [facility] [place] [facility] [address] [id number] [place] [address]- 2814 Jan, [facility] [place] [facility] [address] [id number] [place] [address]- 1068 Jan, [facility] [place] [facility] [address] [id number] [place] [address]- 3830 Jan, [facility] [place] [facility] [address] [id number] [place] [address]- 4392 Dec, [facility] [place] [facility] [address] [id number] [address] 2905 Dec, [facility] [place] [facility] [address] [id number] [address] 1231 Dec, [facility] [place] [facility] [address] [id number] [place] 8573 Dec, [facility] [place] [facility] [address] [id number] [place] [address]- 5024 Nov, [facility] [place] [facility] [address] [id number] [place] [address]- 8827 Nov, [facility] [place] [facility] [address] [id number] [place] [address]- 7542 Jun, [facility] [place] [facility] [address] [id number] [place] [address]- 3022 Jun, [facility] [place] [facility] [address] [id number] [place] [address]- 1996 Jun, [facility] [place] [facility] [address] [id number] [place] [address]- 9726 Jun, [facility] [place] [facility] [address] [id number] [place] [address]- 0732 Apr, [facility] [place] [facility] [address] [id number] [place] [address]- 3959 Apr, [facility] [place] [facility] [address] [id number] [place] [address]- 5983 Apr, [facility] [place] [facility] [address] [id number] [place] [address]- 7341 Mar, [facility] [place] [facility] [address] [id number] [place] [address]- 6487 Mar, [facility] [place] [facility] [address] [id number] [place] [address]- 5983 Mar, [facility] [place] [facility] [address] [id number] [place] [address]- 3963 Mar, [facility] [place] [facility] [address] [id number] [place] [address]- 8457 Nov, [facility] [place] [facility] [address] [id number] [place] [address]- 1336 Nov, [facility] [place] [facility] [address] [id number] [place] [address]- 5356 July, [facility] [place] [facility] [address] [id number] [place] [address]- 9325 May, [facility] [place] [facility] [address] [id number] [place] [address]- 3273 Mar, [facility] [place] [facility] [address] [id number] [place] [address]- 7432 Feb, [facility] [place] [facility] [address] [id number] [place] [address]- 7875 Feb, [facility] [place] [facility] [address] [facility] [id number] [place] [address]- 5234 Feb, [facility] [place] [facility] [address] [id number] [place] [address]- 2075 Feb, [facility] [place] [facility] [address] [id number] [place] [address]- 4091 Jan, [facility] [place] [facility] [address] [id number], [place] [address]- 9071 Jan, [facility] [place] [facility] [address] [facility] [id number] [place] [address]- 7249 Jan, [facility] [place] [facility] [address] [id number], [place] [address]- 4187 Jan, [facility] [place] [facility] [address] [id number], [place] [address]- 4688 Jan, [facility] [place] [facility] [address] [facility] [id number] [address]- 1231 Jan, [facility] [place] [facility] [address] [facility] [id number], [place] [address]- 7934 Jan, [facility] [place] [facility] [address] [id number], [place] [address]- 4999 Jan, [facility] [place] [facility] [address] [id number], [place] [address]- 6863 Jan, [facility] [place] [facility] [address] [facility] [id number], [place] [address]- 8557 Dec, [facility] [place] [facility] [address] [facility] [id number] [address]- 6066 Dec, [facility] [place] [facility] [address] [id number] [place] 1516 16 Dec, 2011 [facility] [address] [id number] [place] 4516 Dec, [facility] [place] [facility] [address] [id number] [place] 3336 Dec, [facility] [address] [id number] [place] [address]- 2076 Dec, [facility] [place] [facility] [address] [id number] [place] [address] 2546 Dec, [facility] [address] [id number] [place] [address]- 2117 Dec, [facility] [place] [facility] [address] [id number] [place] [address]- 3486 Dec, [facility] [address] [facility] [id number] [place] [address]- 0075 Dec, [facility] [address] [facility] [id number] [place] [address]- 0756 Dec, [facility] [address] [facility] [id number] [place] [address]776 Oct, [facility] [address] [facility] [id number] [place] [address]- 3798 Oct, [facility] [address] [facility] [id number] [place] [address] 2546 Feb, [facility] [address] [facility] [id number] [place] [address] 2545 Feb, [facility] [place] [facility] [address] [facility] [id number] [place] [address]- 3534 Oct, [facility] [place] [facility] [address] [facility] [id number] [place] [address]- 0095 Jan, [facility] [address] [facility] [id number] [address]- 4313 Jan, IMMUNIZATIONS No Known Immunizations SOCIAL HISTORY Never Assessed REASON FOR VISIT abcess of jaw , has an infection and pain. He is wanting to get something for pain, See's dentist october 27 or . Joselyn PLAN OF CARE Activity Details Follow Up prn Reason: VITAL SIGNS Height 73 in 2016-10-03 Weight 228.5 lbs 2016-10-03 Temperature 98.2 degrees Fahrenheit 2016-10-03 Heart Rate 76 bpm 2016-10-03 Respiratory Rate 20 2016-10-03 BMI 30.14 kg/m2 2016-10-03 Blood pressure systolic 136 mmHg 2016-10-03 Blood pressure diastolic 84 mmHg 2016-10-03 MEDICATIONS Medication Instructions Dosage Frequency Start Date End Date Duration Status Ibuprofen 200 MG Orally every 6 hrs 1 tablet with food or milk as needed 6h Active Tylenol Extra Strength 500 MG Orally every 6 hrs 2 tablets as needed 6h Active Metoprolol Tartrate 50 mg TAKE ONE TABLET BY MOUTH EVERY 12 HOURS (MUST HAVE APPOINTMENT FOR REFILL) 30 Active RESULTS No Results PROCEDURES No Known procedures INSTRUCTIONS MEDICATIONS ADMINISTERED No Known Medications MEDICAL (GENERAL) HISTORY Type Description Date Medical History irritable bowel syndrome Medical History substance abuse Medical History tachycardia Medical History palpitations Medical History hypertension Surgical History appendectomy Surgical History colonscopy-polyp found
--- OUTSIDE RECORDS SUMMARY | 2018-02-18 00:07 | XMS REPORT ---
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 Active 3325204979307 Problem Supraventricular arrhythmia I49.9 Active [id number] ALLERGIES No Information ENCOUNTERS Encounter Location Date Diagnosis [facility] [id number] [place] [id number] Mar, Dental examination Z01.20 [facility] [id number] [place] [address] 35905- 3586 13 Feb, 2017 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 I25.10 [facility] [id number] [place] [address] 08731- 6488 12 Feb, 2017 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 I25.10 [facility] [id number] [place] [address] 98356 -9493 07 Nov, 2016 Adult periodontitis K05.30 [facility] [address] [address] 07 Nov, 2016 Dental examination Z01.20 [facility] [id number] [place] [address] 02886- 0093 10 Oct, 2016 Dental caries K02.9 [facility] [id number] [place] [address] [id number] Oct, 2016 Dental examination Z01.20 [facility] [address] [id number] [address] Sep, Tooth pain K08.89 [facility] [address] [facility] [id number] [place] [address] [id number] Sep, Pain due to dental caries K02.9 [facility] [address] [facility] [id number], [place] [address] 6798 Sep, Pain due to dental caries K02.9 [facility] [address] [id number] Sep, Dental caries K02.9 [facility] [address] [facility] [id number] [place] [address] 09990- 6394 Sep, Dental examination Z01.20 [facility] [id number] [place] [address] 18608- 3551 Sep, Dental caries K02.9 [facility] [id number] [place] [address] 75017- 3816 Sep, [facility] [id number] [place] [address] 13697- 0962 July, Supraventricular arrhythmia I49.9 and Pain due to dental caries K02.9 [facility] [address] [id number] July, Dental examination Z01.20 [facility] [address] [address] Mar, Onychomycosis B35.1 and Nail, ingrown L60.0 [facility] [address] [address] 120[address] Feb, Ingrown toenail without infection L60.0 [facility] [address] [address] [address] Oct, Bursitis of left elbow M70.32 and Bursal cyst of olecranon M71.329 [facility] [id number] [place] [address] 51178- 4546 Oct, Effusion of left olecranon bursa M25.422 and Supraventricular arrhythmia I49.9 [facility] [id number] [place] [address] 11339- 3856 Jun, Dental caries K02.9 and Dental examination Z01.20 [facility] [id number] [place] [address] 47020- 0157 04 Jun, 2015 Dental examination Z01.20 [facility] [id number] [place] [address] 03086- 2790 18 Feb, 2015 Supraventricular arrhythmia I49.9 and Bronchitis J40 [facility] [id number] [place] [address] 62158- 3714 Jan, [facility] [id number] [place] [address] 70479- 7037 Aug, Bronchitis 490 and Atherosclerosis of lone pine arteries of the extremities, unspecified 440.20 [facility] [id number] [place] [address] 85224- 3607 July, [facility] [id number] [place] [address] 34439- 3646 Jun, [facility] [id number] [place] [address] 51081- 0703 Jun, [facility] [id number] [place] [address] 67045- 4978 Mar, [facility] [id number] [place] [address] 48574- 3153 Mar, [facility] [id number] [place] [address] 37478- 1915 Feb, [facility] [id number] [place] [address] 80254- 6367 Feb, [facility] [id number] [place] [address] 31701- 3687 Feb, [facility] [place] [facility] [address] [id number] [place] [address]- 5732 Feb, [facility] [place] [facility] [address] [id number] [place] [address]- 1552 Feb, [facility] [place] [facility] [address] [id number] [place] [address]79 Feb, [facility] [place] [facility] [address] [id number] [place] [address]- 9970 Jan, [facility] [place] [facility] [address] [id number] [place] [address]- 1146 Jan, [facility] [place] [facility] [address] [id number] [place] [address]- 7974 Jan, [facility] [place] [facility] [address] [id number] [place] [address]- 3177 Jan, [facility] [place] [facility] [address] [id number] [place] [address]- 0133 Jan, [facility] [place] [facility] [address] [id number] [place] [address]- 5494 Jan, [facility] [place] [facility] [address] [id number] [place] [address]- 3813 Dec, [facility] [place] [facility] [address] [id number] [place] [address]- 2652 Dec, [facility] [place] [facility] [address] [id number], [place] [address] 7157 Dec, [facility] [place] [facility] [address] [id number] [place] [address]- 8029 Dec, [facility] [place] [facility] [address] [id number] [place] [address]- 6033 Nov, [facility] [place] [facility] [address] [id number] [place] [address]- 4213 Nov, [facility] [place] [facility] [address] [id number] [place] [address]- 6075 Jun, [facility] [place] [facility] [address] [id number] [place] [address]- 1827 Jun, [facility] [place] [facility] [address] [id number] [place] [address]- 4407 Jun, [facility] [place] [facility] [address] [id number] [place] [address]- 6765 Jun, [facility] [place] [facility] [address] [id number] [place] [address]- 5341 Apr, [facility] [place] [facility] [address] [id number] [place] [address]- 1848 Apr, [facility] [place] [facility] [address] [id number] [place] [address]- 9803 Apr, [facility] [place] [facility] [address] [id number] [place] [address]- 6243 Mar, [facility] [place] [facility] [address] [id number] [place] [address]- 5356 Mar, [facility] [place] [facility] [address] [id number] [place] [address]- 1812 Mar, [facility] [place] [facility] [address] [id number] [place] [address]- 6115 Mar, [facility] [place] [facility] [address] [id number] [place] [address]- 9238 Nov, [facility] [place] [facility] [address] [id number] [place] [address]- 1243 Nov, [facility] [place] [facility] [address] [id number] [place] [address]- 8345 July, [facility] [place] [facility] [address] [id number] [place] [address]- 5241 May, [facility] [place] [facility] [address] [id number] [place] [address]- 2117 Mar, [facility] [place] [facility] [address] [id number] [place] [address]- 6185 Feb, [facility] [place] [facility] [address] [id number] [place] 6508 Feb, [facility] [place] [facility] [address] [id number] [place] [address]- 9283 Feb, [facility] [place] [facility] [address] [id number] [place] [address], [place] [address]- 8411 Feb, [facility] [place] [facility] [address] [id number] [place] [address]- 8235 Jan, [facility] [place] [facility] [address] [id number] [place] [address]- 1049 Jan, [facility] [place] [facility] [address] [id number] [place] [address]- 2298 Jan, [facility] [place] [facility] [address] [id number] [place] [address]- 3896 Jan, [facility] [place] [facility] [address] [id number] [place] [address]- 2720 Jan, [facility] [place] [facility] [address] [id number] [place] [address]- 1107 Jan, [facility] [place] [facility] [address] [id number] [place] [address]- 9482 Jan, [facility] [place] [facility] [address] [id number] [place] [address]- 1369 Jan, [facility] [place] [facility] [address] [id number] [place] [address]- 7998 Jan, [facility] [place] [facility] [address] [id number] [place] [address]- 7995 Dec, [facility] [place] [facility] [address] [id number] [place] [address]- 3624 Dec, [facility] [place] [facility] [address] [id number], [place] [address]- 6504 Dec, [facility] [address] [id number] [place] [address]- 8708 Dec, [facility] [address] [id number], [place] [address]- 0396 Dec, [facility] [address] [facility] [id number] [place] [address]286 Dec, [facility] [address] [id number] [place] [address]- 6152 Dec, [facility] [address] [id number] [place] 1740 Dec, [facility] [address] [facility] [id number] [place] 7066 Dec, [facility] [address] [facility] [id number] 0996 Dec, [facility] [address] [facility] [id number], [place] [address]- 6939 Dec, [facility] [address] [facility] [id number] 2549 Oct, [facility] [address] [facility] [id number], [place] [address]- 3670 Oct, [facility] [address] [facility] [id number], [place] [address]- 4050 Feb, [facility] [address] [facility] [id number], [place] [address]- 8072 Feb, [facility] [address] [facility] [id number], [place] [address]- 3669 Oct, [facility] [address] [facility] [id number], [place] [address]- 9447 Jan, [facility] [address] [facility] [id number], [place] [address]- 8453 Jan, IMMUNIZATIONS No Known Immunizations SOCIAL HISTORY Never Assessed REASON FOR VISIT internal med. referal PLAN OF CARE Activity Details Follow Up ayan Reason:TE VITAL SIGNS MEDICATIONS No Known Medications RESULTS No Results PROCEDURES Procedure Date Ordered Result Body Site SCREENING OF A PATIENT October 03, 2016 Billing Notes on claim October 03, 2016 INSTRUCTIONS MEDICATIONS ADMINISTERED No Known Medications MEDICAL (GENERAL) HISTORY Type Description Date Medical History irritable bowel syndrome Medical History substance abuse Medical History tachycardia Medical History palpitations Medical History hypertension Surgical History appendectomy Surgical History colonscopy-polyp found
--- OUTSIDE RECORDS SUMMARY | 2018-02-18 00:07 | XMS REPORT ---
Author Author BANG LOWE Organization [facility] Address [address] [place] [address] Care Team Providers Care [employer] Name Role Phone BANG LOWE Unavailable PROBLEMS Type Condition ICD9-CM Code BAQ36-ZP Code Onset Dates Condition Status SNOMED Code Problem Mixed hyperlipidemia E78.2 Active 141869340 Problem Lumbar radiculopathy M54.16 Active 268223112 Problem Supraventricular arrhythmia I49.9 Active 83552257 Problem Adult periodontitis K05.30 Active 31543344 Problem Coronary artery disease involving [place] coronary artery of [place] heart without angina pectoris I25.10 Active [id number] ALLERGIES Substance Reaction Event Type Date Status Codeine Sulfate Unknown Drug Allergy Nov, Active ENCOUNTERS Encounter Location Date Diagnosis [facility] [id number] [place] [address] 89290- 8426 July, [facility] [id number] [place] [address] 39301- 8707 Jun, Lumbar radiculopathy M54.16 ; Mixed hyperlipidemia E78.2 and Coronary artery disease involving [place] coronary artery of [place] heart without angina pectoris I25.10 [facility] [id number] [place] [address] [id number] Mar, Dental examination Z01.20 [facility] [id number] [place] [address] 32182- 9321 13 Feb, 2017 Coronary artery disease involving [place] coronary artery of [place] heart without angina pectoris I25.10 [facility] [id number] [place] [address] 11709- 6545 12 Feb, 2017 Coronary artery disease involving [place] coronary artery of [place] heart without angina pectoris I25.10 [facility] [id number] [place] [address] 89964 -0844 07 Nov, 2016 Adult periodontitis K05.30 [facility] [address] [id number], [place] [address] 07 Nov, 2016 Dental examination Z01.20 [facility] [address] [id number][place] [address] [address] 10 Oct, 2016 Dental caries K02.9 [facility] [id number] [place] [address] [id number] Oct, Dental examination Z01.20 [facility] [address] [id number] [place] [address] 26999- 6171 Sep, Tooth pain K08.89 [facility] [address] [id number] [place] [address] 10612- 0946 26 Sep, 2016 Pain due to dental caries K02.9 [facility] [address] [id number] [place] [address] 70614- 3147 Sep, Pain due to dental caries K02.9 [facility] [address] [id number] [id number] Sep, Dental caries K02.9 [facility] [address] [id number] [place] [address] 46235- 0222 Sep, Dental examination Z01.20 [facility] [address] [id number], [place] [address] 2619 Sep, Dental caries K02.9 [facility] [address] [id number], [place] [address] 8648 Sep, [facility] [address] [id number], [place] [address] 0604 July, Supraventricular arrhythmia I49.9 and Pain due to dental caries K02.9 [facility] [address] [id number][place] [id number] July, Dental examination Z01.20 [facility] [address] [id number] [place] [address] 93929- 7512 Mar, Onychomycosis B35.1 and Nail, ingrown L60.0 [facility] [id number] [place] [address] 08854- 0122 Feb, Ingrown toenail without infection L60.0 [facility] [id number] [place] [address] 95619- 0869 Oct, Bursitis of left elbow M70.32 and Bursal cyst of olecranon M71.329 [facility] [address] [address]10- 2537 Oct, Effusion of left olecranon bursa M25.422 and Supraventricular arrhythmia I49.9 [facility] [id number] [place] [address] 76619- 7354 Jun, Dental caries K02.9 and Dental examination Z01.20 [facility] [address] 38498- 3886 Jun, Dental examination Z01.20 [facility] [address] 20751- 7254 Feb, Supraventricular arrhythmia I49.9 and Bronchitis J40 [facility] [id number] [place] [address] 06911- 0759 Jan, [facility] [id number] [place] [address] 85530- 6075 24 Aug, 2014 Bronchitis 490 and Atherosclerosis of [place] arteries of the extremities, unspecified 440.20 [facility] [id number] [place] [address] 48585- 2563 July, [facility] [address] 90434- 2463 14 Jun, 2014 [facility] [address] 99482- 0204 13 Jun, 2014 [place] [address] 28740- 2056 Mar, [facility] [place] [facility] [address] [id number] [place] [address] 8716 Mar, [facility] [place] [facility] [address] [id number] [place] [address] 2356 Feb, [facility] [place] [facility] [address] [id number] [place] [address]- 8359 Feb, [facility] [place] [facility] [address] [id number] [place] [address]- 0532 Feb, [facility] [place] [facility] [address] [id number] [place] [address]- 0534 Feb, [facility] [place] [facility] [address] [id number] [place] [address]- 9739 Feb, [facility] [place] [facility] [address] [id number] [place] [address]- 0815 Feb, [facility] [place] [facility] [address] [id number] [place] [address]- 4798 Jan, [facility] [place] [facility] [address] [id number] [place] [address]- 3515 Jan, [facility] [place] [facility] [address] [id number] [place] [address]- 8452 Jan, [facility] [place] [facility] [address] [id number], [place] [address] 0561 Jan, [facility] [place] [facility] [address] [id number], [place] [address] 4594 Jan, [facility] [place] [facility] [address] [id number] [place] [address]- 8690 Jan, [facility] [place] [facility] [address] [id number] [place] [address]- 0120 Dec, [facility] [place] [facility] [address] [id number] [place] [address]- 8141 Dec, [facility] [place] [facility] [address] [id number] [place] [address]- 7567 Dec, [facility] [address] [id number] [place] [address]- 4667 Dec, [facility] [address] [id number] [place] [address]- 9306 Nov, [facility] [address] [id number] [place] [address]- 5501 Nov, [facility] [address] [id number] [place] [address]- 0090 Jun, [facility] [address] [id number] [place] [address]- 6551 Jun, [facility] [address] [id number] [place] [address]- 2500 Jun, [facility] [address] [id number] [place] [address]- 4115 Jun, [facility] [address] [id number] [place] [address]- 9086 Apr, [facility] [address] [id number] [place] [address]- 8774 Apr, [facility] [address] [id number] [place] [address]- 5047 Apr, [facility] [address] [id number] [place] [address]- 3413 Mar, [facility] [address] [id number] [place] [address]- 9056 Mar, [facility] [place] [facility] [address] [id number] [place] [address]- 0187 Mar, [facility] [place] [facility] [address] [id number] [place] [address]- 5466 Mar, [facility] [place] [facility] [address] [id number] [place] [address]- 3372 Nov, [facility] [place] [facility] [address] [id number] [place] [address]- 6632 10 Nov, 2012 [facility] [place] [facility] [address] [id number] [place] [address]- 2709 July, [facility] [place] [facility] [address] [id number] [place] [address]- 2003 May, [facility] [place] [facility] [address] [id number] [place] [address]- 5632 Mar, [facility] [place] [facility] [address] [id number] [place] [address]- 0561 Feb, [facility] [place] [facility] [address] [id number] [place] [address]- 5288 Feb, [facility] [place] [facility] [address] [id number] [place] [address]- 5247 Feb, [facility] [place] [facility] [address] [id number] [place] [address]- 8297 Feb, [facility] [place] [facility] [address] [id number] [place] [address]- 2963 Jan, [facility] [place] [facility] [address] [id number] [place] [address]- 7961 Jan, [facility] [place] [facility] [address] [id number] [place] [address]- 6297 Jan, [facility] [place] [facility] [address] [id number], [place] [address]- 2714 Jan, [facility] [place] [facility] [address] [id number] [place] [address]- 0296 Jan, [facility] [place] [facility] [address] [id number] [place] [address]- 5213 Jan, [facility] [place] [facility] [address] [id number] [place] [address]- 3623 Jan, [facility] [place] [facility] [address] [id number] [place] [address]- 4243 07 Jan, 2012 [facility] [place] [facility] [address] [id number] [place] [address]- 6354 07 Jan, 2012 [facility] [place] [facility] [address] [id number] [place] 8371 17 Dec, 2011 [facility] [place] [facility] [address] [id number] [place] [address]- 9323 17 Dec, 2011 [facility] [place] [facility] [address] [id number] [place] [address]- 4438 16 Dec, 2011 [facility] [place] [facility] [address] [id number] [place] [address]- 6053 12 Dec, 2011 [facility] [place] [facility] [address] [id number] [place] [address]- 6599 12 Dec, 2011 [facility] [place] [facility] [address] [id number] [place] [address]- 1795 11 Dec, 2011 [facility] [place] [facility] [address] [id number] [place] [address]- 6367 11 Dec, 2011 [facility] [place] [facility] [address] [id number] [place] [address]- 8461 10 Dec, 2011 [facility] [place] [facility] [address] [id number] [place] [address]- 0778 10 Dec, 2011 [facility] [place] [facility] [address] [id number] [place] [address]- 7766 10 Dec, 2011 [facility] [place] [facility] [address] [id number] [place] [address]- 2914 10 Dec, 2011 [facility] [place] [facility] [address] [id number] [place] [address]- 2421 Oct, [facility] [place] [facility] [address] [id number] [place] [address]- 8953 Oct, [facility] [place] [facility] [address] [id number] [place] [address]- 3844 Feb, [facility] [place] [facility] [address] [facility] [id number] [place] [address]- 2796 Feb, [facility] [address] [facility] [id number], [place] [address]- 8766 Oct, [facility] [address] [facility] [id number], [place] [address]- 8946 Jan, [facility] [address] [facility] [id number], [place] [address]- 6426 Jan, IMMUNIZATIONS No Known Immunizations SOCIAL HISTORY Never Assessed REASON FOR VISIT xray/possible abscess PLAN OF CARE Activity Details Follow Up prn Reason:dental wellness VITAL SIGNS Height 73 in 2016-11-27 Blood pressure systolic 156 mmHg 2016-11-27 Blood pressure diastolic 100 mmHg 2016-11-27 MEDICATIONS Medication Instructions Dosage Frequency Start Date End Date Duration Status Diclofenac Sodium 75 MG Orally Twice a day 1 tablet with food or milk 12h 11 Oct, 2016 Nov, 30 day(s) Active Tylenol Extra Strength 500 MG Orally every 6 hrs 2 tablets as needed 6h Active Ibuprofen 200 MG Orally every 6 hrs 1 tablet with food or milk as needed 6h Active Clindamycin HCl 150 MG Orally every 6 hrs 2 capsules 6h 7 days Active Metoprolol Tartrate 50 mg TAKE ONE TABLET BY MOUTH EVERY 12 HOURS (MUST HAVE APPOINTMENT FOR REFILL) 30 Active RESULTS No Results PROCEDURES Procedure Date Ordered Result Body Site SCREENING OF A PATIENT Nov 27, 2016 Billing Notes on claim Nov 27, 2016 INSTRUCTIONS MEDICATIONS ADMINISTERED No Known Medications MEDICAL (GENERAL) HISTORY Type Description Date Medical History irritable bowel syndrome Medical History substance abuse Medical History tachycardia Medical History palpitations Medical History hypertension Surgical History appendectomy Surgical History colonscopy-polyp found
--- OUTSIDE RECORDS SUMMARY | 2018-02-18 00:08 | XMS REPORT ---
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 angina pectoris I25.10 Active 1359304491909 Problem Supraventricular arrhythmia I49.9 Active [id number] ALLERGIES No Information ENCOUNTERS Encounter Location Date Diagnosis [facility] [id number] [place] [address] [id number] Mar, Dental examination Z01.20 [facility] [id number] [place] [address] 45334- 5842 13 Feb, 2017 Coronary artery disease involving marshall coronary artery of marshall heart without angina pectoris I25.10 [facility] [id number] [place] [address] 28373- 4265 12 Feb, 2017 Coronary artery disease involving marshall coronary artery of marshall heart without angina pectoris I25.10 [facility] [address] [address] 07 Nov, 2016 Adult periodontitis K05.30 [facility] [id number] [place] [address] 46258- 5165 07 Nov, 2016 Dental examination Z01.20 [facility] [id number] [place] [address] 08716- 3738 10 Oct, 2016 Dental caries K02.9 [facility] [id number] [place] [address] [id number] Oct, 2016 Dental examination Z01.20 [facility] [address] [address] [address] Sep, Tooth pain K08.89 [facility] [id number] [place] [address] 96731- 3916 Sep, Pain due to dental caries K02.9 [facility] [id number] [place] [address] 77463- 5413 Sep, Pain due to dental caries K02.9 [facility] [id number] [place] [address] [id number] Sep, Dental caries K02.9 [facility] [id number] [place] [address] 82681- 2663 Sep, Dental examination Z01.20 [facility] [id number] [place] [address] 98758- 7918 Sep, Dental caries K02.9 [facility] [id number] [place] [address] 04083- 2494 Sep, [facility] [id number] [place] [address] 83813- 5173 July, Supraventricular arrhythmia I49.9 and Pain due to dental caries K02.9 [facility] [id number] [place] [address] [id number] July, Dental examination Z01.20 [facility] [id number] [place] [address] 32726- 4642 Mar, Onychomycosis B35.1 and Nail, ingrown L60.0 [facility] [address] [place] [address] 45429- 3008 Feb, Ingrown toenail without infection L60.0 [facility] [address] [place] [address] 71404- 5850 Oct, Bursitis of left elbow M70.32 and Bursal cyst of olecranon M71.329 [facility] [id number] [place] [address] 03073- 7097 Oct, Effusion of left olecranon bursa M25.422 and Supraventricular arrhythmia I49.9 [facility] [id number] [place] [address] 45837- 9837 Jun, Dental caries K02.9 and Dental examination Z01.20 [facility] [id number] [place] [address] 65491- 0258 04 Jun, 2015 Dental examination Z01.20 [facility] [id number] [place] [address] 82787- 9196 18 Feb, 2015 Supraventricular arrhythmia I49.9 and Bronchitis J40 [facility] [id number] [place] [address] 51637- 7951 Jan, [facility] [id number] [place] [address] 63189- 0811 Aug, Bronchitis 490 and Atherosclerosis of marshall arteries of the extremities, unspecified 440.20 [facility] [id number] [place] [address] 31388- 3871 July, [facility] [id number] [place] [address] 13262- 3335 Jun, [facility] [address] [place] [address] 91563- 1797 Jun, [facility] [id number] [place] [address] 54606- 8130 Mar, [facility] [address] [place] [address] 83814- 7282 Mar, [facility] [id number] [place] [address] 38630- 6808 Feb, [facility] [id number] [place] [address] 15045- 9926 Feb, [facility] [address] [place] [address] 78165- 5015 Feb, [facility] [place] [facility] [address] [id number] [place] [address] 2722 Feb, [facility] [place] [facility] [address] [id number] [place] [address]- 0658 Feb, [facility] [place] [facility] [address] [id number] [place] [address]- 5812 Feb, [facility] [place] [facility] [address] [id number] [place] [address]- 8824 Jan, [facility] [place] [facility] [address] [id number] [place] [address]- 7662 Jan, [facility] [place] [facility] [address] [id number] [place] [address]- 8539 Jan, [facility] [place] [facility] [address] [id number] [place] [address]- 3883 Jan, [facility] [place] [facility] [address] [id number] [place] [address]- 3910 Jan, [facility] [place] [facility] [address] [id number] [place] [address]- 9407 Jan, [facility] [place] [facility] [address] [id number] [place] [address]- 3447 Dec, [facility] [place] [facility] [address] [id number] [place] [address]- 1387 Dec, [facility] [place] [facility] [address] [id number] [place] [address]- 9940 Dec, [facility] [place] [facility] [address] [id number] [place] [address]- 9492 Dec, [facility] [place] [facility] [address] [id number] [place] [address]- 2113 Nov, [facility] [place] [facility] [address] [id number] [place] [address]- 2693 Nov, [facility] [place] [facility] [address] [id number] [place] [address]- 6646 Jun, [facility] [address] [id number] [place] [address]- 5015 Jun, [facility] [place] [facility] [address] [id number] [place] [address]- 4614 Jun, [facility] [place] [facility] [address] [id number] [place] [address]- 8044 Jun, [facility] [place] [facility] [address] [id number] [place] [address]- 2612 Apr, [facility] [place] [facility] [address] [id number] [place] [address]- 9415 Apr, [facility] [place] [facility] [address] [id number] [place] [address]- 0671 Apr, [facility] [address] [id number] [place] [address]- 0698 Mar, [facility] [place] [facility] [address] [id number] [place] [address]- 1515 Mar, [facility] [place] [facility] [address] [id number] [place] [address]- 4196 Mar, [facility] [place] [facility] [address] [id number] [place] [address]- 1771 Mar, [facility] [place] [facility] [address] [id number] [place] [address]- 5988 Nov, [facility] [place] [facility] [address] [id number] [place] [address]- 2225 Nov, [facility] [place] [facility] [address] [id number] [place] [address]- 7778 July, [facility] [place] [facility] [address] [id number] [place] [address]- 8416 May, [facility] [place] [facility] [address] [id number] [place] [address]- 7186 Mar, [facility] [place] [facility] [address] [id number] [place] [address]- 3458 Feb, [facility] [place] [facility] [address] [id number] [place] [address]- 0703 Feb, [facility] [place] [facility] [address] [id number] [place] [address]- 3746 Feb, [facility] [place] [facility] [address] [id number] [place] [address]- 3872 Feb, [facility] [place] [facility] [address] [id number] [place] [address]- 7206 Jan, [facility] [place] [facility] [address] [id number] [place] [address] Jan, [facility] [place] [facility] [address] [id number] [place] [address]- 8793 Jan, [facility] [place] [facility] [address] [id number] [place] [address]- 5425 Jan, [facility] [place] [facility] [address] [id number] [place] [address]- 9258 Jan, [facility] [place] [facility] [address] [id number] [place] [address]- 1950 Jan, [facility] [place] [facility] [address] [facility] [id number] [place] [address]- 5317 Jan, [facility] [place] [facility] [address] [id number] [place] [address]- 0439 Jan, [facility] [place] [facility] [address] [id number] [place] [address]- 3564 Jan, [facility] [place] [facility] [address] [id number] [place] [address]- 2930 Dec, [facility] [place] [facility] [address] [id number] [place] [address]- 8246 Dec, [facility] [place] [facility] [address] [id number] [place] [address]- 0980 Dec, [facility] [address] [id number], [place] [address]- 2361 Dec, [facility] [address] [id number], [place] [address]- 0720 Dec, [facility] [address] [facility] [facility] [id number], [place] [address]- 8560 Dec, [facility] [address] [id number] [address]- 9422 Dec, [facility] [address] [id number] [place] [address]- 1175 Dec, [facility] [address] [id number], [place] [address]- 9341 Dec, [facility] [address] [facility] [id number] [place] [address]- 4974 Dec, [facility] [address] [facility] [id number], [place] [address]- 9421 Dec, [facility] [address] [facility] [id number], [place] [address]- 0773 Oct, [facility] [address] [facility] [id number], [place] [address]- 3709 Oct, [facility] [address] [facility] [id number], [place] [address]- 4318 Feb, [facility] [address] [facility] [id number], [place] [address]- 2660 Feb, [facility] [address] [facility] [id number][place] [address]- 5809 Oct, [facility] [address] [facility] [id number], [place] [address]- 8856 Jan, [facility] [address] [facility] [id number][place] [address] 2664 Jan, IMMUNIZATIONS No Known Immunizations SOCIAL HISTORY Never Assessed REASON FOR VISIT requesting a refill PLAN OF CARE VITAL SIGNS MEDICATIONS Medication Instructions Dosage Frequency Start Date End Date Duration Status Amoxicillin 500 mg Orally 3 times a day 1 capsule 8h Sep, Oct, 07 days Active RESULTS No Results PROCEDURES No Known procedures INSTRUCTIONS MEDICATIONS ADMINISTERED No Known Medications MEDICAL (GENERAL) HISTORY Type Description Date Medical History irritable bowel syndrome Medical History substance abuse Medical History tachycardia Medical History palpitations Medical History hypertension Surgical History appendectomy Surgical History colonscopy-polyp found
--- OUTSIDE RECORDS SUMMARY | 2018-02-18 00:08 | XMS REPORT ---
Author Author LUIS ENRIQUE ALLEN Organization [facility] Address [address] [place] [address] Care Team Providers Care Physical Security Specialist Name Role Phone LUIS ENRIQUE ALLEN Unavailable PROBLEMS Type Condition ICD9-CM Code LHZ65-WZ Code Onset Dates Condition Status SNOMED Code Problem Adult periodontitis K05.30 Active 32856256 Problem Coronary artery disease involving pokagon coronary artery of pokagon heart without angina pectoris I25.10 Active 5917734693022 Problem Supraventricular arrhythmia I49.9 Active 54969566 ALLERGIES Substance Reaction Event Type Date Status Codeine Sulfate Unknown Drug Allergy Sep, Active ENCOUNTERS Encounter Location Date Diagnosis [facility] [id number] [place] [address] [id number] Mar, Dental examination Z01.20 [facility] [id number] [place] [address] 35954- 7448 13 Feb, 2017 Coronary artery disease involving pokagon coronary artery of pokagon heart without angina pectoris I25.10 [facility] [id number] [place] [address] 46503- 7520 12 Feb, 2017 Coronary artery disease involving pokagon coronary artery of pokagon heart without angina pectoris I25.10 [facility] [id number] [place] [address] 99312 -2181 07 Nov, 2016 Adult periodontitis K05.30 [facility] [id number] [place] [address] 73866- 0202 07 Nov, 2016 Dental examination Z01.20 [facility] [id number] [place] [address] 38206- 3336 10 Oct, 2016 Dental caries K02.9 [facility] [address] [place] [address] [id number] 09 Oct, 2016 Dental examination Z01.20 [facility] [address] [facility] [id number] [address] Sep, Tooth pain K08.89 [facility] [address] [facility] [id number] [place] [address] 89338- 5666 Sep, Pain due to dental caries K02.9 [facility] [address] [id number] [place] [address] 09337- 6106 Sep, Pain due to dental caries K02.9 [facility] [address] [facility] [id number] [place] [address] [id number] Sep, Dental caries K02.9 [facility] [address] [id number] [place] [address] 11305- 2906 Sep, Dental examination Z01.20 [facility] [address] [id number] [place] [address] 12174- 0295 Sep, Dental caries K02.9 [facility] [address] [place] [address] 01045- 5300 Sep, [facility] [id number] [place] [address] 95913- 2401 July, Supraventricular arrhythmia I49.9 and Pain due to dental caries K02.9 [facility] [address] [id number] July, Dental examination Z01.20 [facility] [address] [place] [address] 40902- 0930 Mar, Onychomycosis B35.1 and Nail, ingrown L60.0 [facility] [address] [place] [address] 17437- 0084 Feb, Ingrown toenail without infection L60.0 [facility] [address] [id number] [address] Oct, 2016 Bursitis of left elbow M70.32 and Bursal cyst of olecranon M71.329 [facility] [address] [place] [address] 14369- 5816 Oct, Effusion of left olecranon bursa M25.422 and Supraventricular arrhythmia I49.9 [facility] [id number] [place] [address] 45688- 4157 Jun, Dental caries K02.9 and Dental examination Z01.20 [facility] [id number] [place] [address] 47057- 8188 Jun, Dental examination Z01.20 [facility] [id number] [place] [address] 88235- 7887 Feb, Supraventricular arrhythmia I49.9 and Bronchitis J40 [facility] [id number] [place] [address] 41358- 7350 Jan, [facility] [id number] [place] [address] 81755- 3393 Aug, Bronchitis 490 and Atherosclerosis of pokagon arteries of the extremities, unspecified 440.20 [facility] [id number] [place] [address] 61826- 5570 July, [facility] [id number] [place] [address] 67477- 8727 Jun, [facility] [address] [place] [address] 06865- 0182 Jun, [facility] [id number] [place] [address] 23822- 4803 Mar, [facility] [address] [place] [address] 33309- 3592 Mar, [facility] [id number] [place] [address] 72401- 6290 Feb, [facility] [address] [place] [address] 57370- 0944 Feb, [facility] [id number] [place] [address] 07942- 9779 Feb, [facility] [place] [facility] [address] [id number] [place] [address]- 3410 Feb, [facility] [place] [facility] [address] [id number] [place]90 Feb, [facility] [place] [facility] [address] [id number] [place] [address]- 9828 Feb, [facility] [place] [facility] [address] [id number] [place] [address]- 8768 Jan, [facility] [place] [facility] [address] [id number] [place] [address]- 1229 Jan, [facility] [place] [facility] [address] [id number] [place] [address]- 4300 Jan, [facility] [place] [facility] [address] [id number] [place] [address]- 3814 Jan, [facility] [place] [facility] [address] [id number] [place] [address]- 0104 Jan, [facility] [place] [facility] [address] [id number] [place] [address]- 6803 Jan, [facility] [place] [facility] [address] [id number] [place] [address]- 3123 Dec, [facility] [place] [facility] [address] [id number], [place] [address]- 0002 Dec, [facility] [place] [facility] [address] [id number], [place] [address]- 2706 Dec, [facility] [place] [facility] [address] [id number] [place] [address]19 Dec, [facility] [place] [facility] [address] [id number] [place] [address]- 0595 Nov, [facility] [place] [facility] [address] [id number] [place] [address]- 7602 Nov, [facility] [place] [facility] [address] [id number] [place] [address]- 5762 Jun, [facility] [place] [facility] [address] [id number] [place] [address]- 8699 Jun, [facility] [place] [facility] [address] [id number] [place] [address]- 1076 Jun, [facility] [place] [facility] [address] [id number] [place] [address]- 5527 Jun, [facility] [place] [facility] [address] [id number] [place] [address]- 3569 Apr, [facility] [place] [facility] [address] [id number] [place] [address]- 8333 Apr, [facility] [place] [facility] [address] [id number] [place] [address]- 6217 Apr, [facility] [place] [facility] [address] [id number] [place] [address]- 4461 Mar, [facility] [place] [facility] [address] [id number] [place] [address]- 7096 Mar, [facility] [place] [facility] [address] [id number] [place] [address]- 5854 Mar, [facility] [place] [facility] [address] [id number] [place] [address]- 6920 Mar, [facility] [place] [facility] [address] [id number] [place] [address]- 6772 Nov, [facility] [place] [facility] [address] [id number] [place] [address]- 1072 Nov, [facility] [place] [facility] [address] [id number] [place] [address]- 5643 July, [facility] [place] [facility] [address] [id number] [place] [address]- 3048 May, [facility] [place] [facility] [address] [id number] [place] [address]- 5321 Mar, [facility] [place] [facility] [address] [id number] [place] [address]- 8981 Feb, [facility] [place] [facility] [address] [id number] [place] [address]- 7500 Feb, [facility] [place] [facility] [address] [facility] [id number] [place] [address]- 8434 Feb, [facility] [place] [facility] [address] [id number] [place] [address]- 9353 Feb, [facility] [place] [facility] [address] [id number] [place] [address]- 3408 Jan, [facility] [place] [facility] [address] [id number], [place] [address]- 9686 Jan, [facility] [place] [facility] [address] [facility] [id number] [place] [address]- 7733 Jan, [facility] [place] [facility] [address] [id number], [place] [address]- 2956 Jan, [facility] [place] [facility] [address] [id number], [place] [address]- 1031 Jan, [facility] [place] [facility] [address] [facility] [id number], [place] [address]- 3572 Jan, [facility] [place] [facility] [address] [facility] [id number], [place] [address]- 7080 Jan, [facility] [place] [facility] [address] [id number], [place] [address]- 3205 Jan, [facility] [place] [facility] [address] [id number][place] [address]- 5466 Jan, [facility] [place] [facility] [address] [facility] [id number], [place] [address]- 6299 Dec, [facility] [place] [facility] [address] [facility] [id number], [place] [address]- 9722 Dec, [facility] [place] [facility] [address] [id number] [place] [address]266 16 Dec, 2011 [facility] [address] [id number] [place]506 Dec, [facility] [place] [facility] [address] [id number] [place] 7386 Dec, [facility] [address] [id number] [place] [address]- 1966 Dec, [facility] [place] [facility] [address] [id number] [place] [address] 2546 Dec, [facility] [address] [id number] [place] [address]- 2108 Dec, [facility] [place] [facility] [address] [id number] [place] [address]- 6606 Dec, [facility] [address] [facility] [id number] [place] [address]- 6951 Dec, [facility] [address] [facility] [id number] [place] [address]- 0943 Dec, [facility] [address] [facility] [id number] [place] 6128 Oct, [facility] [address] [facility] [id number] [place] [address]- 3779 Oct, [facility] [address] [facility] [id number] [place] [address] 2546 Feb, [facility] [address] [facility] [id number] [place] [address] 254 Feb, [facility] [place] [facility] [address] [facility] [id number] [place] [address]- 3944 Oct, [facility] [place] [facility] [address] [facility] [id number] [place] [address]- 2536 Jan, [facility] [address] [facility] [id number], [place] [address]- 2893 Jan, IMMUNIZATIONS No Known Immunizations SOCIAL HISTORY Never Assessed REASON FOR VISIT Pain (acute) Upper row tooth on left side has been hurting since Thursday morning. EMIL Johansen PLAN OF CARE Activity Details Follow Up Reg appt Reason: VITAL SIGNS Height 73 in 2016-10-17 Weight 226 lbs 2016-10-17 Temperature 98.4 degrees Fahrenheit 2016-10-17 Heart Rate 72 bpm 2016-10-17 Respiratory Rate 20 2016-10-17 BMI 29.81 kg/m2 2016-10-17 Blood pressure systolic 110 mmHg 2016-10-17 Blood pressure diastolic 70 mmHg 2016-10-17 MEDICATIONS Medication Instructions Dosage Frequency Start Date End Date Duration Status Amoxicillin 500 mg Orally 3 times a day 1 capsule 8h Sep, Oct, 07 days Active Ibuprofen 200 MG Orally every 6 hrs 1 tablet with food or milk as needed 6h Active Tramadol HCl 50 mg Orally every 4 hrs 1 tablet as needed 4h July, Sep, 0 days Active Tylenol Extra Strength 500 MG [...]
--- OUTSIDE RECORDS SUMMARY | 2018-02-18 00:08 | XMS REPORT ---
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.10 Active 4200789745764 Problem Supraventricular arrhythmia I49.9 Active 44183173 ALLERGIES Substance Reaction Event Type Date Status Codeine Sulfate Unknown Drug Allergy Sep, Active ENCOUNTERS Encounter Location Date Diagnosis [facility] [id number] [place] [address] [id number] Mar, Dental examination Z01.20 [facility] [id number] [place] [address] 93910- 7489 13 Feb, 2017 Coronary artery disease 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 angina pectoris I25.10 [facility] [address] [place] [address] 12654- 2710 12 Feb, 2017 Coronary artery disease 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 angina pectoris I25.10 [facility] [address], [place] [address] 07 Nov, 2016 Adult periodontitis K05.30 [facility] [address] [place] [address] 56219- 1966 07 Nov, 2016 Dental examination Z01.20 [facility] [id number] [place] [address] 08827- 0842 10 Oct, 2016 Dental caries K02.9 [facility] [address] [place] [address] [id number] 09 Oct, 2016 Dental examination Z01.20 [facility] [address] [id number] [address]- 5078 Sep, Tooth pain K08.89 [facility] [address] [facility] [id number] [place] [address] 16942- 4756 Sep, Pain due to dental caries K02.9 [facility] [address] [facility] [id number] [place] [address] 78159- 6478 Sep, Pain due to dental caries K02.9 [facility] [address] [place] [address] [id number] Sep, Dental caries K02.9 [facility] [address] [facility] [id number] [place] [address] 28099- 0298 Sep, Dental examination Z01.20 [facility] [id number] [place] [address] 13314- 4558 Sep, Dental caries K02.9 [facility] [id number] [place] [address] 54869- 5840 Sep, [facility] [id number] [place] [address] 07439- 0677 July, Supraventricular arrhythmia I49.9 and Pain due to dental caries K02.9 [facility] [address] [place] [address] [id number] July, Dental examination Z01.20 [facility] [address] [place] [address] 40135- 0815 Mar, Onychomycosis B35.1 and Nail, ingrown L60.0 [facility] [address] [place] [address] 08497- 1807 Feb, Ingrown toenail without infection L60.0 [facility] [address] [place] [address] 321343- 6854 Oct, Bursitis of left elbow M70.32 and Bursal cyst of olecranon M71.329 [facility] [id number] [place] [address] 15875- 4275 Oct, Effusion of left olecranon bursa M25.422 and Supraventricular arrhythmia I49.9 [facility] [id number] [place] [address] 10872- 3424 Jun, Dental caries K02.9 and Dental examination Z01.20 [facility] [id number] [place] [address] 14092- 4326 04 Jun, 2015 Dental examination Z01.20 [facility] [id number] [place] [address] 10243- 6326 18 Feb, 2015 Supraventricular arrhythmia I49.9 and Bronchitis J40 [facility] [id number] [place] [address] 15674- 5411 Jan, [facility] [id number] [place] [address] 74243- 0004 Aug, Bronchitis 490 and Atherosclerosis of sleetmute arteries of the extremities, unspecified 440.20 [facility] [id number] [place] [address] 36916- 4417 July, [facility] [id number] [place] [address] 61835- 7591 Jun, [facility] [address] [place] [address] 78199- 3497 Jun, [facility] [id number] [place] [address] 63946- 4443 Mar, [facility] [id number] [place] [address] 60622- 2273 Mar, [facility] [id number] [place] [address] 17797- 4615 Feb, [facility] [id number] [place] [address] 49754- 2908 Feb, [facility] [id number] [place] [address] 88935- 3530 Feb, [facility] [place] [facility] [address] [id number] [place] [address]- 6890 Feb, [facility] [place] [facility] [address] [id number] [place] [address]- 1911 Feb, [facility] [place] [facility] [address] [id number] [place] [address]- 0848 Feb, [facility] [place] [facility] [address] [id number] [place] [address]- 8922 Jan, [facility] [place] [facility] [address] [id number] [place] [address]- 4318 Jan, [facility] [place] [facility] [address] [id number] [place] [address]- 1224 Jan, [facility] [place] [facility] [address] [id number] [place] [address]- 2404 Jan, [facility] [place] [facility] [address] [id number] [place] [address]- 1730 Jan, [facility] [place] [facility] [address] [id number] [place] [address]- 3941 Jan, [facility] [place] [facility] [address] [id number] [place] [address]- 2946 Dec, [facility] [place] [facility] [address] [id number] [place] [address]- 0269 Dec, [facility] [place] [facility] [address] [id number] [place] [address]- 2744 Dec, [facility] [place] [facility] [address] [id number] [place] [address]- 0600 Dec, [facility] [place] [facility] [address] [id number] [place] [address]- 8836 Nov, [facility] [place] [facility] [address] [id number] [place] [address]- 7166 Nov, [facility] [place] [facility] [address] [id number] [place] [address]- 1464 Jun, [facility] [address] [id number] [place] [address]- 3948 Jun, [facility] [place] [facility] [address] [id number] [place] [address]- 6091 Jun, [facility] [place] [facility] [address] [id number] [place] [address]- 8672 Jun, [facility] [place] [facility] [address] [id number] [place] [address]- 6837 Apr, [facility] [place] [facility] [address] [id number] [place] [address]- 5174 Apr, [facility] [place] [facility] [address] [id number] [place] [address]- 3109 Apr, [facility] [address] [id number] [place] [address]- 9422 Mar, [facility] [place] [facility] [address] [id number] [place] [address]- 2299 Mar, [facility] [place] [facility] [address] [id number] [place] [address]- 1607 Mar, [facility] [place] [facility] [address] [id number] [place] [address]- 5681 Mar, [facility] [place] [facility] [address] [id number] [place] [address] Nov, [facility] [place] [facility] [address] [id number], [place] [address] Nov, [facility] [place] [facility] [address] [id number] [place] [address] July, [facility] [place] [facility] [address] [id number] [place] [address] May, [facility] [place] [facility] [address] [id number] [place] [address] Mar, [facility] [place] [facility] [address] [id number] [place] [address] Feb, [facility] [place] [facility] [address] [id number] [place] [address] Feb, [facility] [place] [facility] [address] [id number] [place] [address] Feb, [facility] [place] [facility] [address] [id number] [place] [address] Feb, [facility] [place] [facility] [address] [id number] [place] [address] Jan, [facility] [place] [facility] [address] [id number] [place] [address] Jan, [facility] [place] [facility] [address] [id number] [place] [address] Jan, [facility] [place] [facility] [address] [id number] [place] [address] Jan, [facility] [place] [facility] [address] [id number] [place] [address] Jan, [facility] [place] [facility] [address] [id number] [place] [address] Jan, [facility] [place] [facility] [address] [facility] [id number] [place] [address] Jan, [facility] [place] [facility] [address] [id number] [place] [address] Jan, [facility] [place] [facility] [address] [id number] [place] [address] Jan, [facility] [place] [facility] [address] [id number] [place] [address] 17 Dec, 2011 [facility] [place] [facility] [address] [id number] [place] [address] 17 Dec, 2011 [facility] [place] [facility] [address] [id number] [place] [address] Dec, [facility] [address] [id number], [place] [address] Dec, [facility] [address] [id number], [place] [address] Dec, [facility] [address] [facility] [id number], [place] [address] Dec, [facility] [address] [id number], [place] [address] Dec, [facility] [address] [id number] [place] [address] Dec, [facility] [address] [facility] [id number], [place] [address] Dec, [facility] [address] [facility] [id number] [place] [address] Dec, [facility] [address] [facility] [id number], [place] [address] Dec, [facility] [address] [facility] [id number], [place] [address] Oct, [facility] [address] [facility] [id number], [place] [address] Oct, [facility] [address] [facility] [id number], [place] [address] Feb, [facility] [address] [facility] [id number], [place] [address] Feb, [facility] [address] [facility] [id number], [place] [address] Oct, [facility] [address] [facility] [id number], [place] [address] Jan, [facility] [address] [facility] [id number], [place] [address] Jan, IMMUNIZATIONS No Known Immunizations SOCIAL HISTORY Never Assessed REASON FOR VISIT abscess PLAN OF CARE VITAL SIGNS MEDICATIONS Medication [...] food or milk as needed 6h Active RESULTS No Results PROCEDURES Procedure Date Ordered Result Body Site EXTRAC ERUPTED TOOTH/EXPOSED ROOT October 03, 2016 INSTRUCTIONS MEDICATIONS ADMINISTERED No Known Medications MEDICAL (GENERAL) HISTORY Type Description Date Medical History irritable bowel syndrome Medical History substance abuse Medical History tachycardia Medical History palpitations Medical History hypertension Surgical History appendectomy Surgical History colonscopy-polyp found
--- OUTSIDE RECORDS SUMMARY | 2018-02-18 00:09 | XMS REPORT ---
Author Author LUIS ENRIQUE ALLEN Organization [facility] Address [address] [place] [address] Care Team Providers Care Wrapper Operator Name Role Phone LUIS ENRIQUE ALLEN Unavailable PROBLEMS Type Condition ICD9-CM Code HIN59-YA Code Onset Dates Condition Status SNOMED Code Problem Mixed hyperlipidemia E78.2 Active 546598723 Problem Lumbar radiculopathy M54.16 Active 335397570 Problem Supraventricular arrhythmia I49.9 Active 59235507 Problem Adult periodontitis K05.30 Active 01694622 Problem Coronary artery disease involving [place] coronary artery of [place] heart without angina pectoris I25.10 Active [id number] ALLERGIES No Information ENCOUNTERS Encounter Location Date Diagnosis [facility] [id number] [place] [address] 92114- 6197 12 Jun, 2017 Lumbar radiculopathy M54.16 ; Mixed hyperlipidemia E78.2 and Coronary artery disease involving [place] coronary artery of [place] heart without angina pectoris I25.10 [facility] [id number] [place] [address] [id number] 10 Mar, 2017 Dental examination Z01.20 [facility] [id number] [place] [address] 26519- 3372 13 Feb, 2017 Coronary artery disease involving [place] coronary artery of [place] heart without angina pectoris I25.10 [facility] [id number] [place] [address] 20552- 1759 12 Feb, 2017 Coronary artery disease involving [place] coronary artery of [place] heart without angina pectoris I25.10 [facility] [id number] [place] [address] 30176 -4937 07 Nov, 2016 Adult periodontitis K05.30 [facility] [id number] [place] [address] 43215- 4733 Nov, Dental examination Z01.20 [facility] [address] [id number] [address] 3[address] Oct, Dental caries K02.9 [facility] [address] [id number] [id number] Oct, Dental examination Z01.20 [facility] [address] [id number] [place] [address] 20381- 6266 Sep, Tooth pain K08.89 [facility] [address] [id number] [place] [address] 42385- 7754 Sep, Pain due to dental caries K02.9 [facility] [address] [id number] [place] [address] 07953- 8561 Sep, Pain due to dental caries K02.9 [facility] [address] [id number] [place] [address] [id number] Sep, Dental caries K02.9 [facility] [address] [id number] [place] [address] 30266- 6595 Sep, Dental examination Z01.20 [facility] [address] [id number] [place] [address] 76129- 4722 Sep, Dental caries K02.9 [facility] [address] [facility] [id number] [address] 8695 Sep, [facility] [address] [facility] [id number] [place] [address] 06054- 9699 July, Supraventricular arrhythmia I49.9 and Pain due to dental caries K02.9 [facility] [address] [id number] [place] [id number] July, Dental examination Z01.20 [facility] [address] [facility] [id number] [place] [address] 181708- 3352 Mar, Onychomycosis B35.1 and Nail, ingrown L60.0 [facility] [address] [facility] [id number] [place] [address] 70195- 5027 Feb, Ingrown toenail without infection L60.0 [facility] [id number] [place] [address] 76618- 0498 Oct, Bursitis of left elbow M70.32 and Bursal cyst of olecranon M71.329 [facility] [id number] [place] [address] 54541- 4629 Oct, Effusion of left olecranon bursa M25.422 and Supraventricular arrhythmia I49.9 [facility] [id number] [place] [address] 52279- 7558 Jun, Dental caries K02.9 and Dental examination Z01.20 [facility] [id number] [place] [address] 10581- 7654 Jun, Dental examination Z01.20 [facility] [id number] [place] [address] 98228- 4936 Feb, Supraventricular arrhythmia I49.9 and Bronchitis J40 [facility] [id number] [place] [address] 63585- 9461 Jan, [facility] [id number] [place] [address] 95934- 7672 Aug, Bronchitis 490 and Atherosclerosis of [place] arteries of the extremities, unspecified 440.20 [facility] [id number] [place] [address] 81648- 7151 July, [facility] [id number] [place] [address] 30476- 5273 Jun, [facility] [id number] [place] [address] 35992- 2140 Jun, [facility] [id number] [place] [address] 49429- 2958 Mar, [facility] [id number] [place] [address] 28285- 5241 Mar, [facility] [place] [facility] [address] [id number] [place] [address]- 0344 Feb, [facility] [place] [facility] [address] [id number] [place] [address]- 7000 Feb, [facility] [place] [facility] [address] [id number] [place] [address]- 6671 Feb, [facility] [place] [facility] [address] [id number] [place] [address]- 4288 Feb, [facility] [place] [facility] [address] [id number] [place] [address]- 1045 Feb, [facility] [place] [facility] [address] [id number] [place] [address]- 7505 Feb, [facility] [place] [facility] [address] [id number] [place] [address]- 3231 Jan, [facility] [place] [facility] [address] [id number] [place] [address]- 3198 Jan, [facility] [place] [facility] [address] [id number] [place] [address]- 8733 Jan, [facility] [place] [facility] [address] [id number] [place] [address]- 6872 Jan, [facility] [place] [facility] [address] [id number] [place] [address]- 6602 Jan, [facility] [place] [facility] [address] [id number] [place] [address]- 8600 Jan, [facility] [place] [facility] [address] [id number] [place] [address]- 1819 Dec, [facility] [place] [facility] [address] [id number] [place] [address]- 9024 Dec, [facility] [place] [facility] [address] [id number] [place] [address]- 5926 Dec, [facility] [place] [facility] [address] [id number] [place] [address]- 9481 Dec, [facility] [place] [facility] [address] [id number] [place] [address]- 2512 Nov, [facility] [place] [facility] [address] [id number] [place] [address]- 0278 Nov, [facility] [place] [facility] [address] [id number] [place] [address]- 1234 Jun, [facility] [place] [facility] [address] [id number] [place] [address]- 6899 Jun, [facility] [place] [facility] [address] [id number] [place] [address]- 6089 Jun, [facility] [place] [facility] [address] [id number] [place] [address]- 5065 Jun, [facility] [place] [facility] [address] [id number] [place] [address]- 1709 Apr, [facility] [place] [facility] [address] [id number] [place] [address]- 2811 Apr, [facility] [place] [facility] [address] [id number] [place] [address]- 1825 Apr, [facility] [place] [facility] [address] [id number] [place] [address]- 8136 Mar, [facility] [place] [facility] [address] [id number] [place] [address]- 8626 Mar, [facility] [place] [facility] [address] [id number] [place] [address]- 0570 Mar, [facility] [place] [facility] [address] [id number] [place] [address]- 5594 Mar, [facility] [place] [facility] [address] [id number] [place] [address]- 1939 18 Nov, 2012 [facility] [place] [facility] [address] [id number] [place] [address]- 5962 10 Nov, 2012 [facility] [place] [facility] [address] [id number] [place] [address]- 8479 July, [facility] [address] [id number] [place] [address]- 8907 May, [facility] [place] [facility] [address] [id number] [place] [address]- 8381 Mar, [facility] [address] [id number] [place] [address]- 9770 Feb, [facility] [address] [id number] [place] [address]- 5810 Feb, [facility] [address] [id number] [place] [address]- 9392 Feb, [facility] [address] [id number] [place] [address]- 1690 Feb, [facility] [address] [id number] [place] [address]- 2868 Jan, [facility] [address] [id number] [place] [address]- 5842 Jan, [facility] [address] [id number] [place] [address]- 1491 Jan, [facility] [address] [id number] [place] [address]- 9209 Jan, [facility] [place] [facility] [address] [id number] [place] [address]- 8242 Jan, [facility] [address] [id number] [place] [address]- 3892 Jan, [facility] [place] [facility] [address] [id number] [place] [address]- 2147 Jan, [facility] [place] [facility] [address] [id number] [place] [address]- 2526 Jan, [facility] [place] [facility] [address] [id number] [place] [address]- 8447 Jan, [facility] [place] [facility] [address] [id number] [place] [address]- 4398 17 Dec, 2011 [facility] [place] [facility] [address] [id number] [place] [address]- 2616 17 Dec, 2011 [facility] [place] [facility] [address] [id number] [place] [address]- 5920 16 Dec, 2011 [facility] [place] [facility] [address] [id number] [place] [address]- 7034 Dec, [facility] [place] [facility] [address] [id number] [place] [address]- 2325 Dec, [facility] [place] [facility] [address] [id number] [place] [address]- 1288 Dec, [facility] [place] [facility] [address] [id number] [place] [address]- 5949 Dec, [facility] [place] [facility] [address] [id number] [place] [address]- 7678 10 Dec, 2011 [facility] [place] [facility] [address] [id number] [place] [address]- 5701 10 Dec, 2011 [facility] [place] [facility] [address] [id number] [place] [address]- 3112 10 Dec, 2011 [facility] [place] [facility] [address] [id number] [place] [address]- 3802 Dec, [facility] [place] [facility] [address] [id number] [place] [address]- 3637 Oct, [facility] [place] [facility] [address] [id number] [place] [address]- 8667 Oct, [facility] [place] [facility] [address] [id number] [place] [address]- 3156 Feb, [facility] [place] [facility] [address] [id number] [place] [address]- 1771 Feb, [facility] [place] [facility] [address] [id number] [place] [address]- 6750 Oct, [facility] [address] [facility] [id number] [place] [address]- 3549 Jan, [facility] [address] [facility] [id number] [place] [address]- 7125 Jan, IMMUNIZATIONS No Known Immunizations SOCIAL HISTORY Never Assessed REASON FOR VISIT Labs per compliance PLAN OF CARE VITAL SIGNS MEDICATIONS No Known Medications RESULTS No Results PROCEDURES No Known procedures INSTRUCTIONS MEDICATIONS ADMINISTERED No Known Medications MEDICAL (GENERAL) HISTORY Type Description Date Medical History irritable bowel syndrome Medical History substance abuse Medical History tachycardia Medical History palpitations Medical History hypertension Surgical History appendectomy Surgical History colonscopy-polyp found
--- OUTSIDE RECORDS SUMMARY | 2018-02-18 00:09 | XMS REPORT ---
Author Author MAYA WOODY [facility] Address Unknown Care Team Providers Care Inspector Multifocal Lens Name Role Phone MAYA WOODY Unavailable PROBLEMS Type Condition ICD9-CM Code [id number] Code Onset Dates Condition Status SNOMED Code Problem Adult periodontitis K05.30 Active 15271323 Problem Dental examination Z01.20 Active 696914783 Problem Coronary artery disease involving [place] coronary artery of [place] heart without angina pectoris I25.10 Active 1130697091593 Problem Supraventricular arrhythmia I49.9 Active 58071672 ALLERGIES Substance Reaction Event Type Date Status Codeine Sulfate Unknown Drug Allergy July, Active SOCIAL HISTORY Never Assessed PLAN OF CARE Activity Details Follow Up prn Reason:TE #4- after med clearance VITAL SIGNS Blood pressure systolic 144 mmHg 2016 Blood pressure diastolic 112-wrist mmHg 2016 MEDICATIONS Medication Instructions Dosage Frequency Start Date End Date Duration Status Metoprolol Tartrate 50 MG TAKE ONE TABLET BY MOUTH EVERY 12 HOURS (MUST HAVE APPOINTMENT FOR REFILL) 30 Active Clindamycin HCl 150 MG Orally every 6 hrs 2 capsules 6h 7 days Active RESULTS No Results PROCEDURES Procedure Date Ordered Result Body Site LTD ORAL EVALUATION - PROBLEM FOCUS 2016 INTRAORL-PERIAPICAL 1 FILM 59143 2016 BITEWING - SINGLE FILM 2016 IMMUNIZATIONS No Known Immunizations MEDICAL (GENERAL) HISTORY Type Description Date Medical History irritable bowel syndrome Medical History substance abuse Medical History tachycardia Medical History palpitations Medical History hypertension Surgical History appendectomy Surgical History colonscopy-polyp found
--- OUTSIDE RECORDS SUMMARY | 2018-02-18 00:09 | XMS REPORT ---
Author Author LUIS ENRIQUE ALLEN Organization [facility] [place] Address [address] [place] [address] Care Team Providers Care Cloth Examiner Hand Name Role Phone LUIS ENRIQUE ALLEN Unavailable PROBLEMS Type Condition ICD9-CM Code NTC98-PD Code Onset Dates Condition Status SNOMED Code Problem Mixed hyperlipidemia E78.2 Active 394184247 Problem Lumbar radiculopathy M54.16 Active 194799374 Problem Supraventricular arrhythmia I49.9 Active 88350819 Problem Adult periodontitis K05.30 Active 27938124 Problem Coronary artery disease involving [place] coronary artery of [place] heart without angina pectoris I25.10 Active [id number] ALLERGIES No Information ENCOUNTERS Encounter Location Date Diagnosis [facility] [place] [id number] [place] [address] 98146- 8524 12 Jun, 2017 Lumbar radiculopathy M54.16 ; Mixed hyperlipidemia E78.2 and Coronary artery disease involving [place] coronary artery of [place] heart without angina pectoris I25.10 [facility] [id number] [place] [address] [id number] 10 Mar, 2017 Dental examination Z01.20 [facility] [place] [id number] [place] [address] 86791- 5475 13 Feb, 2017 Coronary artery disease involving [place] coronary artery of [place] heart without angina pectoris I25.10 [facility] [place] [id number] [place] [address] 32916- 8330 12 Feb, 2017 Coronary artery disease involving [place] coronary artery of [place] heart without angina pectoris I25.10 [facility] [id number] [place] [address] 54532 -5524 07 Nov, 2016 Adult periodontitis K05.30 [facility] [place] [id number] [place] [address] 80365- 9371 Nov, Dental examination Z01.20 [facility] [place] [address] [id number] [address] Oct, Dental caries K02.9 [facility] [address] [id number] [id number] Oct, Dental examination Z01.20 [facility] [place] [address] [id number] [place] [address] 10836- 0958 Sep, Tooth pain K08.89 [facility] [place] [id number] [place] [address] 43270- 9504 Sep, Pain due to dental caries K02.9 [facility] [place] [id number] [place] [address] 72605- 5647 Sep, Pain due to dental caries K02.9 [facility] [id number] [place] [address] [id number] Sep, Dental caries K02.9 [facility] [place] [id number] [place] [address] 48949- 7266 Sep, Dental examination Z01.20 [facility] [place] [id number] [place] [address] 29155- 2157 Sep, Dental caries K02.9 [facility] [place] [address] [facility] [id number] [address] Sep, [facility] [place] [address] [facility] [id number] [place] [address] 02169- 2046 July, Supraventricular arrhythmia I49.9 and Pain due to dental caries K02.9 [facility] [address] [id number] [id number] July, Dental examination Z01.20 [facility] [place] [address] [facility] [id number] [place] [address] 008453- 5016 Mar, Onychomycosis B35.1 and Nail, ingrown L60.0 [facility] [place] [address] [facility] [id number] [place] [address] 35642- 8806 Feb, Ingrown toenail without infection L60.0 [facility] [place] [id number] [place] [address] 58042- 0553 Oct, Bursitis of left elbow M70.32 and Bursal cyst of olecranon M71.329 [facility] [place] [id number] [place] [address] 45903- 8010 Oct, Effusion of left olecranon bursa M25.422 and Supraventricular arrhythmia I49.9 [address] [id number] [place] [address] 92697- 7176 Jun, Dental caries K02.9 and Dental examination Z01.20 [place] [id number] [place] [address] 40850- 4772 Jun, Dental examination Z01.20 [place] [id number] [place] [address] 62424- 0419 Feb, Supraventricular arrhythmia I49.9 and Bronchitis [id number] [place] [address] 68191- 1015 Jan, [place] [id number] [place] [address] 07882- 7986 Aug, Bronchitis 490 and Atherosclerosis of [place] arteries of the extremities, unspecified 440.20 [address] [place] [id number] [place] [address] 02627- 2736 July, [facility] [place] [id number] [place] [address] 43363- 6284 Jun, [facility] [place] [id number] [place] [address] 83157- 5398 Jun, [facility] [place] [id number] [place] [address] 01377- 0517 Mar, [facility] [place] [id number] [place] [address] 21061- 8434 Mar, [facility] [place] [facility] [address] [id number] [place] [address] 4016 Feb, [facility] [place] [facility] [address] [id number] [place] [address]- 0624 Feb, [facility] [place] [facility] [address] [id number] [place] [address]- 3089 Feb, [facility] [place] [facility] [address] [id number] [place] [address]- 7316 Feb, [facility] [place] [facility] [address] [id number] [place] [address]- 8686 Feb, [facility] [place] [facility] [address] [id number] [place] [address]- 8807 Feb, [facility] [place] [facility] [address] [id number] [place] [address]- 4532 Jan, [facility] [place] [facility] [address] [id number] [place] [address]- 4043 Jan, [facility] [place] [facility] [address] [id number] [place] [address]- 9306 Jan, [facility] [place] [facility] [address] [id number] [place] [address]- 7140 Jan, [facility] [place] [facility] [address] [id number] [place] [address]- 2591 Jan, [facility] [place] [facility] [address] [id number] [place] [address]- 3595 Jan, [facility] [place] [facility] [address] [id number] [place] [address]- 5230 Dec, [facility] [place] [facility] [address] [id number] [place] [address]- 0123 Dec, [facility] [place] [facility] [address] [id number] [place] [address]- 0013 Dec, [facility] [place] [facility] [address] [id number] [place] [address]- 5074 Dec, [facility] [place] [facility] [address] [id number] [place] [address]- 2033 Nov, [facility] [place] [facility] [address] [id number] [place] [address]- 8974 Nov, [facility] [place] [facility] [address] [id number] [place] [address]- 3575 Jun, [facility] [place] [facility] [address] [id number] [place] [address]- 0603 Jun, [facility] [place] [facility] [address] [id number] [place] [address]- 3551 Jun, [facility] [place] [facility] [address] [id number] [place] [address]- 7296 Jun, [facility] [place] [facility] [address] [id number] [place] [address]- 3660 Apr, [facility] [place] [facility] [address] [id number] [place] [address]- 2862 Apr, [facility] [place] [facility] [address] [id number] [place] [address]- 0821 Apr, [facility] [place] [facility] [address] [id number] [place] [address]- 3141 Mar, [facility] [place] [facility] [address] [id number], [place] [address]- 9861 Mar, [facility] [place] [facility] [address] [id number], [place] [address]- 3412 Mar, [facility] [place] [facility] [address] [id number] [place] [address]- 0591 Mar, [facility] [place] [facility] [address] [id number] [place] [address]- 1342 18 Nov, 2012 [facility] [place] [facility] [address] [id number] [place] [address]- 2966 10 Nov, 2012 [facility] [place] [facility] [address] [id number] [place] [address]- 9501 July, [facility] [address] [id number] [place] [address]- 7847 May, [facility] [place] [facility] [address] [id number] [place] [address]- 2367 Mar, [facility] [address] [id number] [place] [address]- 2678 Feb, [facility] [address] [id number] [place] [address]- 0989 Feb, [facility] [address] [id number] [place] [address]- 2399 Feb, [facility] [address] [id number] [place] [address]- 7872 Feb, [facility] [address] [id number] [place] [address]- 7577 Jan, [facility] [address] [id number] [place] [address]- 8566 Jan, [facility] [address] [id number] [place] [address]- 9967 Jan, [facility] [address] [id number] [place] [address]- 1617 Jan, [facility] [place] [facility] [address] [id number] [place] [address]- 4149 Jan, [facility] [address] [id number] [place] [address]- 3083 Jan, [facility] [place] [facility] [address] [id number] [place] [address]- 2956 Jan, [facility] [place] [facility] [address] [id number] [place] [address]- 2328 Jan, [facility] [place] [facility] [address] [id number] [place] [address]- 6023 Jan, [facility] [place] [facility] [address] [id number] [place] [address]- 3692 17 Dec, 2011 [facility] [place] [facility] [address] [id number] [place] [address]- 8994 17 Dec, 2011 [facility] [place] [facility] [address] [id number] [place] [address]- 6160 16 Dec, 2011 [facility] [place] [facility] [address] [id number] [place] [address]- 3409 Dec, [facility] [place] [facility] [address] [id number] [place] [address]- 3059 Dec, [facility] [place] [facility] [address] [id number] [place] [address]- 4109 Dec, [facility] [place] [facility] [address] [id number] [place] [address]- 8583 Dec, [facility] [place] [facility] [address] [id number] [place] [address]- 6064 10 Dec, 2011 [facility] [place] [facility] [address] [id number] [place] [address]- 7668 10 Dec, 2011 [facility] [place] [facility] [address] [id number] [place] [address]- 9386 10 Dec, 2011 [facility] [place] [facility] [address] [id number] [place] [address]- 6438 Dec, [facility] [place] [facility] [address] [id number] [place] [address]- 9415 Oct, [facility] [place] [facility] [address] [id number] [place] [address]- 7316 Oct, [facility] [place] [facility] [address] [id number] [place] [address]- 3284 Feb, [facility] [place] [facility] [address] [id number] [place] [address]- 0192 Feb, [facility] [place] [facility] [address] [id number] [place] [address]- 0863 Oct, [facility] [place] [address] [facility] [id number] [place] [address]- 3514 Jan, [facility] [place] [address] [facility] [id number] [address]- 5436 Jan, IMMUNIZATIONS No Known Immunizations SOCIAL HISTORY Never Assessed REASON FOR VISIT Lab (walk-in) PLAN OF CARE VITAL SIGNS MEDICATIONS No Known Medications RESULTS No Results PROCEDURES Procedure Date Ordered Result Body Site LIPID PANEL Mar 04, 2017 VENIPUNCT, ROUTINE* Mar 04, 2017 INSTRUCTIONS MEDICATIONS ADMINISTERED No Known Medications MEDICAL (GENERAL) HISTORY Type Description Date Medical History irritable bowel syndrome Medical History substance abuse Medical History tachycardia Medical History palpitations Medical History hypertension Surgical History appendectomy Surgical History colonscopy-polyp found
--- OUTSIDE RECORDS SUMMARY | 2018-02-18 00:09 | XMS REPORT ---
Author Author LUIS ENRIQUE ALLEN [facility] Address [address] [place] [address] Care Team Providers Care Construction Stonemason Name Role Phone LUIS ENRIQUE ALLEN Unavailable PROBLEMS Type Condition ICD9-CM Code [id number] Code Onset Dates Condition Status SNOMED Code Problem Adult periodontitis K05.30 Active 25728784 Problem Dental examination Z01.20 Active 910521951 Problem Coronary artery disease involving [place] coronary artery of [place] heart without angina pectoris I25.10 Active 0621770020229 Problem Supraventricular arrhythmia I49.9 Active 95042429 ALLERGIES Substance Reaction Event Type Date Status Codeine Sulfate Unknown Drug Allergy July, Active SOCIAL HISTORY Never Assessed PLAN OF CARE Activity Details Follow Up 6 Months Reason: VITAL SIGNS Height 73 in 2016-08-11 Weight 234.3 lbs 2016-08-11 Temperature 98.1 degrees Fahrenheit 2016-08-11 Heart Rate 88 bpm 2016-08-11 Respiratory Rate 18 2016-08-11 BMI 30.91 kg/m2 2016-08-11 Blood pressure systolic 134 mmHg 2016-08-11 Blood pressure diastolic 99 mmHg 2016-08-11 MEDICATIONS Medication Instructions Dosage Frequency Start Date End Date Duration Status Tramadol HCl 50 mg Orally every 4 hrs 1 tablet as needed 4h July, July, 0 days Active Metoprolol Tartrate 50 mg TAKE ONE TABLET BY MOUTH EVERY 12 HOURS (MUST HAVE APPOINTMENT FOR REFILL) 30 Active Clindamycin HCl 150 MG Orally every 6 hrs 2 capsules 6h 7 days Active Ibuprofen 200 MG Orally every 6 hrs 1 tablet with food or milk as needed 6h Active Tylenol Extra Strength 500 MG Orally every 6 hrs 2 tablets as needed 6h Active RESULTS No Results PROCEDURES No Known procedures IMMUNIZATIONS No Known Immunizations MEDICAL (GENERAL) HISTORY Type Description Date Medical History irritable bowel syndrome Medical History substance abuse Medical History tachycardia Medical History palpitations Medical History hypertension Surgical History appendectomy Surgical History colonscopy-polyp found
--- OUTSIDE RECORDS SUMMARY | 2018-02-18 00:10 | XMS REPORT ---
Author Author LUDY Covarrubias [facility] Address [address] [place] [address] Care Team Providers Care Can Technician Name Role Phone pujaYOJANAGARFIELD LUDY Unavailable PROBLEMS Type Condition ICD9-CM Code [id number] Code Onset Dates Condition Status SNOMED Code Problem Mixed hyperlipidemia E78.2 Active 295210506 Problem Lumbar radiculopathy M54.16 Active 007790026 Problem Supraventricular arrhythmia I49.9 Active 79063985 Problem Adult periodontitis K05.30 Active 39199743 Problem Coronary artery disease involving [place] coronary artery of [place] heart without angina pectoris I25.10 Active [id number] ALLERGIES No Information ENCOUNTERS Encounter Location Date Diagnosis [facility] [id number] [place] [address]69- 1365 July, [facility] [id number] [place] [address] 02523- 4608 Jun, Lumbar radiculopathy M54.16 ; Mixed hyperlipidemia E78.2 and Coronary artery disease involving [place] coronary artery of [place] heart without angina pectoris I25.10 [facility] [id number] [place] [address] [id number] Mar, Dental examination Z01.20 [facility] [id number] [place] [address] 17098- 7714 13 Feb, 2017 Coronary artery disease involving [place] coronary artery of [place] heart without angina pectoris I25.10 [facility] [id number] [place] [address] 54201- 6542 12 Feb, 2017 Coronary artery disease involving [place] coronary artery of [place] heart without angina pectoris I25.10 [facility] [id number] [place] [address] 93479 -9765 07 Nov, 2016 Adult periodontitis K05.30 [facility] [address] [id number], [place] [address] 07 Nov, 2016 Dental examination Z01.20 [facility] [address] [id number], [place] [address] Oct, Dental caries K02.9 [facility] [address] [id number] [id number] Oct, Dental examination Z01.20 [facility] [address] [id number], [place] [address] Sep, Tooth pain K08.89 [facility] [address] [id number] [place] [address], [place] [address]- 98[address] Sep, Pain due to dental caries K02.9 [facility] [address] [id number], [place] [address] 7946 Sep, Pain due to dental caries K02.9 [facility] [address] [id number][place] [id number] Sep, Dental caries K02.9 [facility] [address] [id number] [place] [address] 80080- 6375 Sep, Dental examination Z01.20 [facility] [address] [id number], [place] [address] 3278 Sep, Dental caries K02.9 [facility] [address] [id number], [place] [address] 64[address] Sep, [facility] [address] [id number], [place] [address] July, Supraventricular arrhythmia I49.9 and Pain due to dental caries K02.9 [facility] [address] [id number][place] [id number] July, Dental examination Z01.20 [facility] [address] [id number], [place] [address] Mar, Onychomycosis B35.1 and Nail, ingrown L60.0 [place] [facility] [id number] [place] [address] 03792- 3872 Feb, Ingrown toenail without infection L60.0 [place] [id number] [place] [address] 72219- 2168 Oct, Bursitis of left elbow M70.32 and Bursal cyst of olecranon M71.329 [place] [address] [address]- 3206 Oct, Effusion of left olecranon bursa M25.422 and Supraventricular arrhythmia I49.9 [place] [id number] [place] [address] 21552- 2954 Jun, Dental caries K02.9 and Dental examination Z01.[address] [address]- 0579 Jun, Dental examination Z01.20 [place] [id number] [place] [address] 97284- 1219 Feb, Supraventricular arrhythmia I49.9 and Bronchitis J40 [place] [id number] [place] [address] 26515- 4630 Jan, [place] [id number] [place] [address] 72308- 8627 24 Aug, 2014 Bronchitis 490 and Atherosclerosis of [place] arteries of the extremities, unspecified 440.20 [place] [id number] [place] [address] 48811- 5968 July, [place] [address] 26587- 5795 14 Jun, 2014 [place] [id number] [place] [address] 33955- 5933 Jun, [place] [address] 27848- 1079 Mar, [facility] [place] [facility] [address] [id number] [place] [address]- 3706 Mar, [facility] [place] [facility] [address] [id number] [place] [address]- 7413 Feb, [facility] [place] [facility] [address] [id number] [place] [address]- 3221 Feb, [facility] [place] [facility] [address] [id number] [place] [address]- 0047 Feb, [facility] [place] [facility] [address] [id number] [place] [address]- 7115 Feb, [facility] [place] [facility] [address] [id number] [place] [address]- 0382 Feb, [facility] [place] [facility] [address] [id number] [place] [address]- 7148 Feb, [facility] [place] [facility] [address] [id number] [place] [address]- 6497 Jan, [facility] [place] [facility] [address] [id number] [place] [address]- 1835 Jan, [facility] [place] [facility] [address] [id number] [place] [address]- 5426 Jan, [facility] [place] [facility] [address] [id number] [place] [address]- 2609 Jan, [facility] [place] [facility] [address] [id number] [place] [address]- 6359 Jan, [facility] [place] [facility] [address] [id number] [place] [address]- 4863 Jan, [facility] [place] [facility] [address] [id number] [place] [address]- 9062 Dec, [facility] [place] [facility] [address] [id number] [place] [address] Dec, [facility] [place] [facility] [address] [id number] [place] [address]- 0031 Dec, [facility] [place] [facility] [address] [id number] [place] [address]- 8364 Dec, [facility] [place] [facility] [address] [id number] [place] [address]- 4013 Nov, [facility] [place] [facility] [address] [id number] [place] [address]- 5634 Nov, [facility] [place] [facility] [address] [id number] [place] [address]- 7112 Jun, [facility] [place] [facility] [address] [id number] [place] [address]- 6628 Jun, [facility] [place] [facility] [address] [id number] [place] [address]- 0225 Jun, [facility] [place] [facility] [address] [id number] [place] [address]- 3567 Jun, [facility] [place] [facility] [address] [id number] [place] [address]- 8880 Apr, [facility] [place] [facility] [address] [id number] [place] [address]- 9233 Apr, [facility] [place] [facility] [address] [id number] [place] [address]- 4192 Apr, [facility] [place] [facility] [address] [id number] [place] [address]- 2183 Mar, [facility] [place] [facility] [address] [id number], [place] [address]- 6225 Mar, [facility] [place] [facility] [address] [id number] [place] [address]- 7579 Mar, [facility] [place] [facility] [address] [id number] [place] [address]- 9648 Mar, [facility] [place] [facility] [address] [id number], [place] [address]- 9142 Nov, [facility] [place] [facility] [address] [id number] [place] [address]- 1043 Nov, [facility] [address] [id number] [place] [address]- 4447 July, [facility] [address] [id number] [place] [address]- 6337 May, [facility] [address] [id number] [place] [address]- 4210 Mar, [facility] [address] [id number] [place] [address]- 8433 Feb, [facility] [address] [id number] [place] [address]- 0928 Feb, [facility] [address] [id number] [place] [address]- 6086 Feb, [facility] [address] [id number] [place] [address]- 8211 Feb, [facility] [address] [id number] [place] [address]- 8015 Jan, [facility] [address] [id number] [place] [address]- 8380 Jan, [facility] [address] [id number] [place] [address]- 1368 Jan, [facility] [place] [facility] [address] [id number] [place] [address]- 5978 Jan, [facility] [place] [facility] [address] [id number] [place] [address]- 6341 Jan, [facility] [place] [facility] [address] [id number] [place] [address]- 5061 Jan, [facility] [place] [facility] [address] [id number] [place] [address]- 4952 Jan, [facility] [place] [facility] [address] [id number] [place] [address]- 2546 07 Jan, 2012 [facility] [place] [facility] [address] [id number] [place] [address]01 07 Jan, 2012 [facility] [place] [facility] [address] [id number] [place] [address]- 8066 17 Dec, 2011 [facility] [place] [facility] [address] [id number] [place] [address]- 5087 17 Dec, 2011 [facility] [place] [facility] [address] [id number] [place] [address]- 9568 16 Dec, 2011 [facility] [place] [facility] [address] [id number] [place] [address]- 4250 Dec, [facility] [place] [facility] [address] [id number] [place] [address]- 2800 12 Dec, 2011 [facility] [place] [facility] [address] [id number] [place] [address]- 2481 Dec, [facility] [place] [facility] [address] [id number] [place] [address]- 7467 11 Dec, 2011 [facility] [place] [facility] [address] [id number] [place] [address]- 2067 10 Dec, 2011 [facility] [place] [facility] [address] [id number] [place] [address]- 5149 10 Dec, 2011 [facility] [place] [facility] [address] [id number] [place] [address]- 1671 10 Dec, 2011 [facility] [place] [facility] [address] [id number] [place] [address]- 3846 10 Dec, 2011 [facility] [place] [facility] [address] [id number] [place] [address]- 9523 Oct, [facility] [place] [facility] [address] [id number] [place] [address]- 2907 Oct, [facility] [place] [facility] [address] [id number] [place] [address]- 0578 Feb, [facility] [place] [facility] [address] [facility] [id number] [place] [address]- 2546 Feb, [facility] [address] [facility] [id number], [place] [address]- 2546 Oct, [facility] [address] [facility] [id number], [place] [address]- 2546 Jan, [facility] [address] [facility] [id number], [place] [address]- 3046 Jan, IMMUNIZATIONS No Known Immunizations SOCIAL HISTORY Never Assessed REASON FOR VISIT PLAN OF CARE VITAL SIGNS MEDICATIONS Medication Instructions Dosage Frequency Start Date End Date Duration Status Magic Mouthwash Apply medicated swab to sore areas of the mouth to numb the pain Q 2 hours Dip cotton swab into medication and apply to affected area Nov, Jan, 30 days Active RESULTS No Results PROCEDURES No Known procedures INSTRUCTIONS MEDICATIONS ADMINISTERED No Known Medications MEDICAL (GENERAL) HISTORY Type Description Date Medical History irritable bowel syndrome Medical History substance abuse Medical History tachycardia Medical History palpitations Medical History hypertension Surgical History appendectomy Surgical History colonscopy-polyp found
--- OUTSIDE RECORDS SUMMARY | 2018-02-18 00:11 | XMS REPORT | Continuity of Care Document ---
Author Author [facility] Address Unknown Phone Unavailable Allergies Active Description Code Type Severity Reaction Onset Reported/Identified Relationship to Patient Clinical Status Yes codeine Drug Allergy 12/13/2008 Yes codeine Drug Allergy N/A N/A 12/13/2008 Yes codeine [id number] Drug Allergy Unknown VOMITTING 12/15/2008 Medications There is no data. Problems Date Dx Coded Attending Type Code Diagnosis Diagnosed By 12/13/2008 785.0 TACHYCARDIA UNSPECIFIED 12/13/2008 786.50 CHEST PAIN 12/13/2008 796.2 ELEVATED BLOOD PRESSURE READING WITHOUT DIAGNOSIS OF HYPERTENSION 12/13/2008 785.0 TACHYCARDIA UNSPECIFIED 12/13/2008 786.50 CHEST PAIN 12/13/2008 796.2 ELEVATED BLOOD PRESSURE READING WITHOUT DIAGNOSIS OF HYPERTENSION 12/13/2008 785.0 Tachycardia Unspecified 12/13/2008 786.50 Chest Pain 12/13/2008 796.2 Elevated Blood Pressure Reading Without Diagnosis Of Hypertension 12/13/2008 785.0 Tachycardia Unspecified 12/13/2008 786.50 Chest Pain 12/13/2008 796.2 Elevated Blood Pressure Reading Without Diagnosis Of Hypertension 12/13/2008 785.0 Tachycardia Unspecified 12/13/2008 786.50 Chest Pain 12/13/2008 796.2 Elevated Blood Pressure Reading Without Diagnosis Of Hypertension 12/13/2008 LUIS ENRIQUE ALLEN MD 785.0 TACHYCARDIA UNSPECIFIED 12/13/2008 LUIS ENRIQUE ALLEN MD 786.50 CHEST PAIN 12/13/2008 LUIS ENRIQUE ALLEN MD 796.2 ELEVATED BLOOD PRESSURE READING WITHOUT DIAGNOSIS OF HYPERTENSION 12/13/2008 SAM COOK DO K 785.0 Tachycardia Unspecified 12/13/2008 YAN COOK DOA K 786.50 Chest Pain 12/13/2008 YAN COOK DOA K 796.2 Elevated Blood Pressure Reading Without Diagnosis Of Hypertension 12/13/2008 YAN COOK DOA K 785.0 Tachycardia Unspecified 12/13/2008 COOK DO, SAM K 786.50 Chest Pain 12/13/2008 COOK DO, SAM K 796.2 Elevated Blood Pressure Reading Without Diagnosis Of Hypertension 12/13/2008 COOK DO, SAM K 785.0 Tachycardia Unspecified 12/13/2008 COOK DO, SAM K 786.50 Chest Pain 12/13/2008 COOK DO, SAM K 796.2 Elevated Blood Pressure Reading Without Diagnosis Of Hypertension 12/13/2008 WHITE DDS, VIOLET D 785.0 Tachycardia Unspecified 12/13/2008 WHITE DDS, VIOLET D 786.50 Chest Pain 12/13/2008 WHITE DDS, VIOLET D 796.2 Elevated Blood Pressure Reading Without Diagnosis Of Hypertension 12/13/2008 COOK DO, SAM K 785.0 Tachycardia Unspecified 12/13/2008 COOK DO, SAM K 786.50 Chest Pain 12/13/2008 COOK DO, SAM K 796.2 Elevated Blood Pressure Reading Without Diagnosis Of Hypertension 12/13/2008 LUIS ENRIQUE ALLEN MD 785.0 Tachycardia Unspecified 12/13/2008 LUIS ENRIQUE ALLEN MD 786.50 Chest Pain 12/13/2008 LUIS ENRIQUE ALLEN MD 796.2 Elevated Blood Pressure Reading Without Diagnosis Of Hypertension 12/13/2008 TEODORO PRIEST DDS 785.0 Tachycardia Unspecified 12/13/2008 TEODORO PRIEST DDS 786.50 Chest Pain 12/13/2008 PRIEST DDS, TEODORO 796.2 Elevated Blood Pressure Reading Without Diagnosis Of Hypertension 12/13/2008 LUIS ENRIQUE ALLEN MD 785.0 Tachycardia Unspecified 12/13/2008 LUIS ENRIQUE ALLEN MD 786.50 Chest Pain 12/13/2008 LUIS ENRIQUE ALLEN MD 796.2 Elevated Blood Pressure Reading Without Diagnosis Of Hypertension 12/13/2008 REAL RAY APRN R 785.0 Tachycardia Unspecified 12/13/2008 REAL RAY APRN R 786.50 Chest Pain 12/13/2008 REAL RAY APRN R 796.2 Elevated Blood Pressure Reading Without Diagnosis Of Hypertension 08/09/2009 272.1 PURE HYPERGLYCERIDEMIA 08/09/2009 305.1 NONDEPENDENT ABUSE OF DRUGS, TOBACCO USE DISORDER 08/09/2009 425.5 CARDIOMYOPATHY DILATED ALCOHOLIC 08/09/2009 272.1 PURE HYPERGLYCERIDEMIA 08/09/2009 305.1 NONDEPENDENT ABUSE OF DRUGS, TOBACCO USE DISORDER 08/09/2009 425.5 CARDIOMYOPATHY DILATED ALCOHOLIC 08/09/2009 272.1 Pure Hyperglyceridemia 08/09/2009 305.1 NONDEPENDENT ABUSE OF DRUGS, TOBACCO USE DISORDER 08/09/2009 425.5 CARDIOMYOPATHY DILATED ALCOHOLIC 08/09/2009 272.1 Pure Hyperglyceridemia 08/09/2009 305.1 NONDEPENDENT ABUSE OF DRUGS, TOBACCO USE DISORDER 08/09/2009 425.5 CARDIOMYOPATHY DILATED ALCOHOLIC 08/09/2009 272.1 Pure Hyperglyceridemia 08/09/2009 305.1 NONDEPENDENT ABUSE OF DRUGS, TOBACCO USE DISORDER 08/09/2009 425.5 CARDIOMYOPATHY DILATED ALCOHOLIC 08/09/2009 LUIS ENRIQUE ALLEN MD 272.1 PURE HYPERGLYCERIDEMIA 08/09/2009 LUIS ENRIQUE ALLEN MD 305.1 NONDEPENDENT ABUSE OF DRUGS, TOBACCO USE DISORDER 08/09/2009 LUIS ENRIQUE ALLEN MD 425.5 CARDIOMYOPATHY DILATED ALCOHOLIC 08/09/2009 COOK DO, SAM K 272.1 Pure Hyperglyceridemia 08/09/2009 COOK DO, SAM K 305.1 NONDEPENDENT ABUSE OF DRUGS, TOBACCO USE DISORDER 08/09/2009 COOK DO, SAM K 425.5 CARDIOMYOPATHY DILATED ALCOHOLIC 08/09/2009 COOK DO, SAM K 272.1 Pure Hyperglyceridemia 08/09/2009 COOK DO, SAM K 305.1 NONDEPENDENT ABUSE OF DRUGS, TOBACCO USE DISORDER 08/09/2009 COOK DO, SAM K 425.5 CARDIOMYOPATHY DILATED ALCOHOLIC 08/09/2009 COOK DO, SAM K 272.1 Pure Hyperglyceridemia 08/09/2009 COOK DO, SAM K 305.1 NONDEPENDENT ABUSE OF DRUGS, TOBACCO USE DISORDER 08/09/2009 COOK DO, SAM K 425.5 CARDIOMYOPATHY DILATED ALCOHOLIC 08/09/2009 WHITE DDS, VIOLET D 272.1 Pure Hyperglyceridemia 08/09/2009 WHITE DDS, VIOLET D 305.1 NONDEPENDENT ABUSE OF DRUGS, TOBACCO USE DISORDER 08/09/2009 WHITE DDS, VIOLET D 425.5 CARDIOMYOPATHY DILATED ALCOHOLIC 08/09/2009 COOK DO, SAM K 272.1 Pure Hyperglyceridemia 08/09/2009 COOK DO, SAM K 305.1 NONDEPENDENT ABUSE OF DRUGS, TOBACCO USE DISORDER 08/09/2009 COOK DO, SAM K 425.5 CARDIOMYOPATHY DILATED ALCOHOLIC 08/09/2009 LUIS ENRIQUE ALLEN MD 272.1 Pure Hyperglyceridemia 08/09/2009 LUIS ENRIQUE ALLEN MD 305.1 NONDEPENDENT ABUSE OF DRUGS, TOBACCO USE DISORDER 08/09/2009 LUIS ENRIQUE ALLEN MD 425.5 CARDIOMYOPATHY DILATED ALCOHOLIC 08/09/2009 PRIEST DDSTEODORO 272.1 Pure Hyperglyceridemia 08/09/2009 TEODORO PRIEST DDS 305.1 NONDEPENDENT ABUSE OF DRUGS, TOBACCO USE DISORDER 08/09/2009 TEODORO PRIEST DDS 425.5 CARDIOMYOPATHY DILATED ALCOHOLIC 08/09/2009 LUIS ENRIQUE ALLEN MD 272.1 Pure Hyperglyceridemia 08/09/2009 LUIS ENRIQUE ALLEN MD 305.1 NONDEPENDENT ABUSE OF DRUGS, TOBACCO USE DISORDER 08/09/2009 LUIS ENRIQUE ALLEN MD 425.5 CARDIOMYOPATHY DILATED ALCOHOLIC 08/09/2009 REAL RAY APRN 272.1 Pure Hyperglyceridemia 08/09/2009 REAL RAY APRN 305.1 NONDEPENDENT ABUSE OF DRUGS, TOBACCO USE DISORDER 08/09/2009 REAL RAY APRN 425.5 CARDIOMYOPATHY DILATED ALCOHOLIC 09/26/2009 414.01 CAD 09/26/2009 414.01 CAD 09/26/2009 414.01 CAD 09/26/2009 414.01 CAD 09/26/2009 414.01 CAD 09/26/2009 LUIS ENRIQUE ALLEN MD 414.01 CAD 09/26/2009 COOK DO, SAM K 414.01 CAD 09/26/2009 COOK DO, SAM K 414.01 CAD 09/26/2009 COOK DO, SAM K 414.01 CAD 09/26/2009 VIOLET FORBES DDS 414.01 CAD 09/26/2009 COOK DO, SAM K 414.01 CAD 09/26/2009 LUIS ENRIQUE ALLEN MD 414.01 CAD 09/26/2009 TEODORO PRIEST DDS 414.01 CAD 09/26/2009 LUIS ENRIQUE ALLEN MD 414.01 CAD 09/26/2009 REAL RAY APRN 414.01 CAD 11/05/2009 427.89 OTHER SPECIFIED CARDIAC DYSRHYTHMIAS 11/05/2009 427.89 OTHER SPECIFIED CARDIAC DYSRHYTHMIAS 11/05/2009 427.89 OTHER SPECIFIED CARDIAC DYSRHYTHMIAS 11/05/2009 427.89 OTHER SPECIFIED CARDIAC DYSRHYTHMIAS 11/05/2009 427.89 OTHER SPECIFIED CARDIAC DYSRHYTHMIAS 11/05/2009 LUIS ENRIQUE ALLEN MD 427.89 OTHER SPECIFIED CARDIAC DYSRHYTHMIAS 11/05/2009 COOK DO, SAM K 427.89 OTHER SPECIFIED CARDIAC DYSRHYTHMIAS 11/05/2009 COOK DO, SAM K 427.89 OTHER SPECIFIED CARDIAC DYSRHYTHMIAS 11/05/2009 COOK DO, SAM K 427.89 OTHER SPECIFIED CARDIAC DYSRHYTHMIAS 11/05/2009 VIOLET FORBES DDS 427.89 OTHER SPECIFIED CARDIAC DYSRHYTHMIAS 11/05/2009 COOK DO, SAM K 427.89 OTHER SPECIFIED CARDIAC DYSRHYTHMIAS 11/05/2009 LUIS ENRIQUE ALLEN MD 427.89 OTHER SPECIFIED CARDIAC DYSRHYTHMIAS 11/05/2009 TEODORO PRIEST DDS 427.89 OTHER SPECIFIED CARDIAC DYSRHYTHMIAS 11/05/2009 LUIS ENRIQUE ALLEN MD 427.89 OTHER SPECIFIED CARDIAC DYSRHYTHMIAS 11/05/2009 CORY ALVARENGA REAL R 427.89 OTHER SPECIFIED CARDIAC DYSRHYTHMIAS 11/05/2009 Ot 272.4 11/05/2009 Ot 305.1 11/05/2009 Ot 401.9 11/05/2009 Ot 414.01 11/05/2009 Ot 427.0 02/20/2010 466.0 BRONCHITIS, ACUTE 02/20/2010 466.0 BRONCHITIS, ACUTE 02/20/2010 466.0 BRONCHITIS, ACUTE 02/20/2010 466.0 BRONCHITIS, ACUTE 02/20/2010 466.0 BRONCHITIS, ACUTE 02/20/2010 LUIS ENRIQUE ALLEN MD 466.0 BRONCHITIS, ACUTE 02/20/2010 COOK DO, SAM K 466.0 BRONCHITIS, ACUTE 02/20/2010 COOK DO, SAM K 466.0 BRONCHITIS, ACUTE 02/20/2010 COOK DO, SAM K 466.0 BRONCHITIS, ACUTE 02/20/2010 VIOLET FORBES DDS 466.0 BRONCHITIS, ACUTE 02/20/2010 COOK DO, SAM K 466.0 BRONCHITIS, ACUTE 02/20/2010 LUIS ENRIQUE ALLEN MD 466.0 BRONCHITIS, ACUTE 02/20/2010 TEODORO PRIEST DDS 466.0 BRONCHITIS, ACUTE 02/20/2010 LUIS ENRIQUE ALLEN MD 466.0 BRONCHITIS, ACUTE 02/20/2010 REAL RAY APRN 466.0 BRONCHITIS, ACUTE 03/12/2010 780.79 MALAISE AND FATIGUE 03/12/2010 786.05 SHORTNESS OF BREATH 03/12/2010 780.79 MALAISE AND FATIGUE 03/12/2010 786.05 SHORTNESS OF BREATH 03/12/2010 780.79 MALAISE AND FATIGUE 03/12/2010 786.05 SHORTNESS OF BREATH 03/12/2010 780.79 MALAISE AND FATIGUE 03/12/2010 786.05 SHORTNESS OF BREATH 03/12/2010 780.79 MALAISE AND FATIGUE 03/12/2010 786.05 SHORTNESS OF BREATH 03/12/2010 LUIS ENRIQUE ALLEN MD 780.79 MALAISE AND FATIGUE 03/12/2010 LUIS ENRIQUE ALLEN MD 786.05 SHORTNESS OF BREATH 03/12/2010 COOK DO, SAM K 780.79 MALAISE AND FATIGUE 03/12/2010 COOK DO, SAM K 786.05 SHORTNESS OF BREATH 03/12/2010 COOK DO, SAM K 780.79 MALAISE AND FATIGUE 03/12/2010 COOK DO, SAM K 786.05 SHORTNESS OF BREATH 03/12/2010 COOK DO, SAM K 780.79 MALAISE AND FATIGUE 03/12/2010 COOK DO, SAM K 786.05 SHORTNESS OF BREATH 03/12/2010 WHITE DDS, VIOLET D 780.79 MALAISE AND FATIGUE 03/12/2010 WHITE DDS, VIOLET D 786.05 SHORTNESS OF BREATH 03/12/2010 COOK DO, SAM K 780.79 MALAISE AND FATIGUE 03/12/2010 COOK DO, SAM K 786.05 SHORTNESS OF BREATH 03/12/2010 LUIS ENRIQUE ALLEN MD 780.79 MALAISE AND FATIGUE 03/12/2010 LUIS ENRIQUE ALLEN MD 786.05 SHORTNESS OF BREATH 03/12/2010 TEODORO PRIEST DDS 780.79 MALAISE AND FATIGUE 03/12/2010 TEODORO PRIEST DDS 786.05 SHORTNESS OF BREATH 03/12/2010 LUIS ENRIQUE ALLEN MD 780.79 MALAISE AND FATIGUE 03/12/2010 LUIS ENRIQUE ALLEN MD 786.05 SHORTNESS OF BREATH 03/12/2010 REAL RAY APRN 780.79 MALAISE AND FATIGUE 03/12/2010 REAL RAY APRN R 786.05 SHORTNESS OF BREATH 03/28/2010 305.00 ALCOHOL ABUSE 03/28/2010 311 MO DEPRESS NOS 03/28/2010 305.00 ALCOHOL ABUSE 03/28/2010 311 MO DEPRESS NOS 03/28/2010 305.00 ALCOHOL ABUSE 03/28/2010 311 MO DEPRESS NOS 03/28/2010 305.00 ALCOHOL ABUSE 03/28/2010 311 MO DEPRESS NOS 03/28/2010 305.00 ALCOHOL ABUSE 03/28/2010 311 MO DEPRESS NOS 03/28/2010 LUIS ENRIQUE ALLEN MD 305.00 ALCOHOL ABUSE 03/28/2010 LUIS ENRIQUE ALLEN MD 311 MO DEPRESS NOS 03/28/2010 COOK DO, SAM K 305.00 ALCOHOL ABUSE 03/28/2010 COOK DO, SAM K 311 MO DEPRESS NOS 03/28/2010 COOK DO, SAM K 305.00 ALCOHOL ABUSE 03/28/2010 COOK DO, SAM K 311 MO DEPRESS NOS 03/28/2010 COOK DO, SAM K 305.00 ALCOHOL ABUSE 03/28/2010 COOK DO, SAM K 311 MO DEPRESS NOS 03/28/2010 WHITE DDS, VIOLET D 305.00 ALCOHOL ABUSE 03/28/2010 WHITE DDS, VIOLET D 311 MO DEPRESS NOS 03/28/2010 COOK DO, SAM K 305.00 ALCOHOL ABUSE 03/28/2010 COOK DO, SAM K 311 MO DEPRESS NOS 03/28/2010 LUIS ENRIQUE ALLEN MD 305.00 ALCOHOL ABUSE 03/28/2010 LUIS ENRIQUE ALLEN MD 311 MO DEPRESS NOS 03/28/2010 PRIEST DDS, TEODORO 305.00 ALCOHOL ABUSE 03/28/2010 PRIEST DDS, TEODORO 311 MO DEPRESS NOS 03/28/2010 LUIS ENRIQUE ALLEN MD 305.00 ALCOHOL ABUSE 03/28/2010 LUIS ENRIQUE ALLEN MD 311 MO DEPRESS NOS 03/28/2010 REAL RAY APRN R 305.00 ALCOHOL ABUSE 03/28/2010 ANN RAY APRNIA R 311 MO DEPRESS NOS 04/03/2010 401.1 HYPERTENSION, BENIGN ESSENTIAL 04/03/2010 401.1 HYPERTENSION, BENIGN ESSENTIAL 04/03/2010 401.1 HYPERTENSION, BENIGN ESSENTIAL 04/03/2010 401.1 HYPERTENSION, BENIGN ESSENTIAL 04/03/2010 401.1 HYPERTENSION, BENIGN ESSENTIAL 04/03/2010 LUIS ENRIQUE ALLEN MD 401.1 HYPERTENSION, BENIGN ESSENTIAL 04/03/2010 COOK DO, SAM K 401.1 HYPERTENSION, BENIGN ESSENTIAL 04/03/2010 COOK DO, SAM K 401.1 HYPERTENSION, BENIGN ESSENTIAL 04/03/2010 COOK DO, SAM K 401.1 HYPERTENSION, BENIGN ESSENTIAL 04/03/2010 VIOLET FORBES DDS 401.1 HYPERTENSION, BENIGN ESSENTIAL 04/03/2010 COOK DO, SAM K 401.1 HYPERTENSION, BENIGN ESSENTIAL 04/03/2010 LUIS ENRIQUE ALLEN MD 401.1 HYPERTENSION, BENIGN ESSENTIAL 04/03/2010 TEODORO PRIEST DDS 401.1 HYPERTENSION, BENIGN ESSENTIAL 04/03/2010 LUIS ENRIQUE ALLEN MD 401.1 HYPERTENSION, BENIGN ESSENTIAL 04/03/2010 CORY ALVARENGA REAL R 401.1 HYPERTENSION, BENIGN ESSENTIAL 05/06/2010 Ot 272.4 05/06/2010 Ot 300.00 05/06/2010 Ot 401.9 05/06/2010 Ot 414.01 05/06/2010 Ot 427.0 05/06/2010 Ot 786.50 05/06/2010 Ot 794.30 05/06/2010 Ot V58.66 05/06/2010 Ot V58.69 05/07/2010 296.30 MAJOR DEPRESSIVE AFFECTIVE DISORDER RECURRENT EPISODE UNSPECIFIED DEGREE 05/07/2010 296.30 MAJOR DEPRESSIVE AFFECTIVE DISORDER RECURRENT EPISODE UNSPECIFIED DEGREE 05/07/2010 296.30 MAJOR DEPRESSIVE AFFECTIVE DISORDER RECURRENT EPISODE UNSPECIFIED DEGREE 05/07/2010 296.30 MAJOR DEPRESSIVE AFFECTIVE DISORDER RECURRENT EPISODE UNSPECIFIED DEGREE 05/07/2010 296.30 MAJOR DEPRESSIVE AFFECTIVE DISORDER RECURRENT EPISODE UNSPECIFIED DEGREE 05/07/2010 LUIS ENRIQUE ALLEN MD 296.30 MAJOR DEPRESSIVE AFFECTIVE DISORDER RECURRENT EPISODE UNSPECIFIED DEGREE 05/07/2010 COOK DO, SAM K 296.30 MAJOR DEPRESSIVE AFFECTIVE DISORDER RECURRENT EPISODE UNSPECIFIED DEGREE 05/07/2010 COOK DO, SAM K 296.30 MAJOR DEPRESSIVE AFFECTIVE DISORDER RECURRENT EPISODE UNSPECIFIED DEGREE 05/07/2010 COOK DO, SAM K 296.30 MAJOR DEPRESSIVE AFFECTIVE DISORDER RECURRENT EPISODE UNSPECIFIED DEGREE 05/07/2010 VIOLET FORBES DDS 296.30 MAJOR DEPRESSIVE AFFECTIVE DISORDER RECURRENT EPISODE UNSPECIFIED DEGREE 05/07/2010 COOK DO, SAM K 296.30 MAJOR DEPRESSIVE AFFECTIVE DISORDER RECURRENT EPISODE UNSPECIFIED DEGREE 05/07/2010 LUIS ENRIQUE ALLEN MD 296.30 MAJOR DEPRESSIVE AFFECTIVE DISORDER RECURRENT EPISODE UNSPECIFIED DEGREE 05/07/2010 TEODORO PRIEST DDS 296.30 MAJOR DEPRESSIVE AFFECTIVE DISORDER RECURRENT EPISODE UNSPECIFIED DEGREE 05/07/2010 LUIS ENRIQUE ALLEN MD 296.30 MAJOR DEPRESSIVE AFFECTIVE DISORDER RECURRENT EPISODE UNSPECIFIED DEGREE 05/07/2010 REAL RAY APRN 296.30 MAJOR DEPRESSIVE AFFECTIVE DISORDER RECURRENT EPISODE UNSPECIFIED DEGREE 05/29/2010 300.00 AN ANXIETY UNSPEC 05/29/2010 300.00 AN ANXIETY UNSPEC 05/29/2010 300.00 AN ANXIETY UNSPEC 05/29/2010 300.00 AN ANXIETY UNSPEC 05/29/2010 300.00 AN ANXIETY UNSPEC 05/29/2010 LUIS ENRIQUE ALLEN MD 300.00 AN ANXIETY UNSPEC 05/29/2010 COOK DO, SAM K 300.00 AN ANXIETY UNSPEC 05/29/2010 COOK DO, SAM K 300.00 AN ANXIETY UNSPEC 05/29/2010 COOK DO, SAM K 300.00 AN ANXIETY UNSPEC 05/29/2010 VIOLET FORBES DDS 300.00 AN ANXIETY UNSPEC 05/29/2010 COOK DO, SAM K 300.00 AN ANXIETY UNSPEC 05/29/2010 LUIS ENRIQUE ALLEN MD 300.00 AN ANXIETY UNSPEC 05/29/2010 TEODORO PRIEST DDS 300.00 AN ANXIETY UNSPEC 05/29/2010 LUIS ENRIQUE ALLEN MD 300.00 AN ANXIETY UNSPEC 05/29/2010 REAL RAY APRN 300.00 AN ANXIETY UNSPEC 05/30/2010 Ot 535.50 05/30/2010 Ot 786.50 09/17/2011 Ot 276.50 VOLUME DEPLETION, UNSPECIFIED 09/17/2011 Ot 276.9 ELECTROLYT/ FLUID DIS NEC 09/17/2011 Ot 780.4 DIZZINESS AND GIDDINESS 09/26/2011 Ot 462 ACUTE PHARYNGITIS 10/26/2011 Ot 401.9 HYPERTENSION NOS 10/26/2011 Ot 427.89 CARDIAC DYSRHYTHMIAS NEC 10/26/2011 Ot 785.1 PALPITATIONS 10/26/2011 Ot V58.69 OTH MED,LT, CURRENT USE 12/31/2011 564.1 IRRITABLE BOWEL SYNDROME 12/31/2011 787.91 diarrhea 12/31/2011 564.1 IRRITABLE BOWEL SYNDROME 12/31/2011 787.91 diarrhea 12/31/2011 564.1 IRRITABLE BOWEL SYNDROME 12/31/2011 787.91 Diarrhea 12/31/2011 564.1 IRRITABLE BOWEL SYNDROME 12/31/2011 787.91 Diarrhea 12/31/2011 564.1 IRRITABLE BOWEL SYNDROME 12/31/2011 787.91 Diarrhea 12/31/2011 LUIS ENRIQUE ALLEN MD 564.1 IRRITABLE BOWEL SYNDROME 12/31/2011 LUIS ENRIQUE ALLEN MD 787.91 diarrhea 12/31/2011 COOK DO, SAM K 564.1 IRRITABLE BOWEL SYNDROME 12/31/2011 COOK DO, SAM K 787.91 Diarrhea 12/31/2011 COOK DO, SAM K 564.1 IRRITABLE BOWEL SYNDROME 12/31/2011 COOK DO, SAM K 787.91 Diarrhea 12/31/2011 COOK DO, SAM K 564.1 IRRITABLE BOWEL SYNDROME 12/31/2011 COOK DO, SAM K 787.91 Diarrhea 12/31/2011 WHITE DDS, VIOLET D 564.1 IRRITABLE BOWEL SYNDROME 12/31/2011 WHITE DDS, VIOLET D 787.91 Diarrhea 12/31/2011 COOK DO, SAM K 564.1 IRRITABLE BOWEL SYNDROME 12/31/2011 COOK DO, SAM K 787.91 Diarrhea 12/31/2011 LUIS ENRIQUE ALLEN MD4.1 IRRITABLE BOWEL SYNDROME 12/31/2011 LUIS ENRIQUE ALLEN MD 787.91 Diarrhea 12/31/2011 PRIEST DDS, TEODORO 564.1 IRRITABLE BOWEL SYNDROME 12/31/2011 PRIEST DDS, TEODORO 787.91 Diarrhea 12/31/2011 LUIS ENRIQUE ALLEN MD 564.1 IRRITABLE BOWEL SYNDROME 12/31/2011 LUIS ENRIQUE ALLEN MD7.91 Diarrhea 12/31/2011 REAL RAY APRN R 564.1 IRRITABLE BOWEL SYNDROME 12/31/2011 REAL RAY APRN R 787.91 Diarrhea 01/28/2012 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 01/28/2012 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 01/28/2012 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 01/28/2012 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 01/28/2012 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 01/28/2012 LUIS ENRIQUE ALLEN MD 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 01/28/2012 COOK DO, SAM K 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 01/28/2012 COOK DO, SAM K 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 01/28/2012 COOK DO, SAM K 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 01/28/2012 VIOLET FORBES DDS 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 01/28/2012 COOK DO, SAM K 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 01/28/2012 LUIS ENRIQUE ALLEN MD 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 01/28/2012 TEODORO PRIEST DDS 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 01/28/2012 LUIS ENRIQUE ALLEN MD 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 01/28/2012 REAL RAY APRN 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 02/24/2012 Ot 305.1 TOBACCO USE DISORDER 02/24/2012 Ot 427.89 CARDIAC DYSRHYTHMIAS NEC 02/24/2012 Ot 486 PNEUMONIA, ORGANISM NOS 03/02/2012 486 PNEUMONIA ORGANISM UNSPECIFIED 03/02/2012 486 PNEUMONIA ORGANISM UNSPECIFIED 03/02/2012 486 Pneumonia Organism Unspecified 03/02/2012 486 Pneumonia Organism Unspecified 03/02/2012 486 Pneumonia Organism Unspecified 03/02/2012 COOK DO, SAM K 486 Pneumonia Organism Unspecified 03/02/2012 COOK DO, SAM K 486 Pneumonia Organism Unspecified 03/02/2012 COOK DO, SAM K 486 Pneumonia Organism Unspecified 03/02/2012 VIOLET FORBES DDS 486 Pneumonia Organism Unspecified 03/02/2012 COOK DO, SAM K 486 Pneumonia Organism Unspecified 03/02/2012 LUIS ENRIQUE ALLEN MD 486 Pneumonia Organism Unspecified 03/02/2012 TEODORO PRIEST DDS 486 Pneumonia Organism Unspecified 03/02/2012 LUIS ENRIQUE ALLEN MD 486 Pneumonia Organism Unspecified 03/02/2012 REAL RAY APRN 486 Pneumonia Organism Unspecified 06/07/2012 440.20 ASOD 06/07/2012 578.1 HEMATOCHEZIA 06/07/2012 440.20 ASOD 06/07/2012 578.1 HEMATOCHEZIA 06/07/2012 COOK DO, SAM K 440.20 ASOD 06/07/2012 COOK DO, SAM K 578.1 HEMATOCHEZIA 06/07/2012 COOK DO, SAM K 440.20 ASOD 06/07/2012 COOK DO, SAM K 578.1 HEMATOCHEZIA 06/07/2012 COOK DO, SAM K 440.20 ASOD 06/07/2012 COOK DO, SAM K 578.1 HEMATOCHEZIA 06/07/2012 WHITE DDS, VIOLET D 440.20 ASOD 06/07/2012 WHITE DDS, VIOLET D 578.1 HEMATOCHEZIA 06/07/2012 COOK DO, SAM K 440.20 ASOD 06/07/2012 COOK DO, SAM K 578.1 HEMATOCHEZIA 06/07/2012 TIFFANY GAITAN, LUIS ENRIQUE 440.20 ASOD 06/07/2012 LUIS ENRIQUE ALLEN MD 578.1 HEMATOCHEZIA 06/07/2012 PRIEST DDSTEODORO 440.20 ASOD 06/07/2012 PRIEST DDS, TEODORO 578.1 HEMATOCHEZIA 06/07/2012 LUIS ENRIQUE ALLEN MD 440.20 ASOD 06/07/2012 LUIS ENRIQUE ALLEN MD 578.1 HEMATOCHEZIA 06/07/2012 REAL RAY APRN R 440.20 ASOD 06/07/2012 REAL RAY APRN R 578.1 HEMATOCHEZIA 06/20/2012 Ot 427.89 CARDIAC DYSRHYTHMIAS NEC 06/20/2012 Ot V58.69 OTH MED,LT, CURRENT USE 06/28/2012 Ot 211.3 BENIGN NEOPLASM LG BOWEL 06/28/2012 Ot 455.0 INT HEMORRHOID W/O COMPL 06/28/2012 Ot V16.0 FAMILY HX-GI MALIGNANCY 08/18/2012 272.4 DYSLIPIDEMIA 08/18/2012 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 08/18/2012 785.1 PALPITATIONS 08/18/2012 786.09 DYSPNEA 08/18/2012 COOK DO, SAM K 272.4 DYSLIPIDEMIA 08/18/2012 COOK DO, SAM K 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 08/18/2012 COOK DO, SAM K 785.1 PALPITATIONS 08/18/2012 COOK DO, SAM K 786.09 DYSPNEA 08/18/2012 COOK DO, SAM K 272.4 DYSLIPIDEMIA 08/18/2012 COOK DO, SAM K 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 08/18/2012 COOK DO, SAM K 785.1 PALPITATIONS 08/18/2012 COOK DO, SAM K 786.09 DYSPNEA 08/18/2012 COOK DO, SAM K 272.4 DYSLIPIDEMIA 08/18/2012 COOK DO, SAM K 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 08/18/2012 COOK DO, SAM K 785.1 PALPITATIONS 08/18/2012 COOK DO, SAM K 786.09 DYSPNEA 08/18/2012 WHITE DDS, VIOLET D 272.4 DYSLIPIDEMIA 08/18/2012 WHITE DDS, VIOLET D 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 08/18/2012 WHITE DDS, VIOLET D 785.1 PALPITATIONS 08/18/2012 WHITE DDS, VIOLET D 786.09 DYSPNEA 08/18/2012 COOK DO, SAM K 272.4 DYSLIPIDEMIA 08/18/2012 COOK DO, SAM K 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 08/18/2012 COOK DO, SAM K 785.1 PALPITATIONS 08/18/2012 COOK DO, SAM K 786.09 DYSPNEA 08/18/2012 LUIS ENRIQUE ALLEN MD 272.4 DYSLIPIDEMIA 08/18/2012 LUIS ENRIQUE ALLEN MD 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 08/18/2012 LUIS ENRIQUE ALLEN MD 785.1 PALPITATIONS 08/18/2012 LUIS ENRIQUE ALLEN MD 786.09 DYSPNEA 08/18/2012 PRIEST DDS, TEODORO 272.4 DYSLIPIDEMIA 08/18/2012 PRIEST DDS, TEODORO 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 08/18/2012 PRIEST DDS, TEODORO 785.1 PALPITATIONS 08/18/2012 PRIEST DDS, TEODORO 786.09 DYSPNEA 08/18/2012 LUIS ENRIQUE ALLEN MD 272.4 DYSLIPIDEMIA 08/18/2012 LUIS ENRIQUE ALLEN MD 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 08/18/2012 LUIS ENRIQUE ALLEN MD 785.1 PALPITATIONS 08/18/2012 LUIS ENRIQUE ALLEN MD 786.09 DYSPNEA 08/18/2012 RAY PANEL BUILDER, REAL R 272.4 DYSLIPIDEMIA 08/18/2012 CORY MARTINEZN, REAL R 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 08/18/2012 CORY ALVARENGA, REAL R 785.1 PALPITATIONS 08/18/2012 CORY ALVARENGA, REAL R 786.09 DYSPNEA 12/08/2012 COOK DO, SAM K NODX NO DIAGNOSIS 12/08/2012 COOK DO, SAM K NODX NO DIAGNOSIS 12/08/2012 COOK DO, SAM K NODX NO DIAGNOSIS 12/08/2012 ANDREI DDS, VIOLET Alatorre NODX NO DIAGNOSIS 12/08/2012 COOK DO, SAM K NODX NO DIAGNOSIS 12/08/2012 TIFFANY GAITAN, LUIS ENRIQUE NODX NO DIAGNOSIS 12/08/2012 CEM FORBESS, TEODORO NODX NO DIAGNOSIS 12/08/2012 TIFFANY GAITAN, LUIS ENRIQUE NODX NO DIAGNOSIS 12/08/2012 ANN RAY APRNIA R NODX NO DIAGNOSIS 02/14/2013 ESPERANZA SHIRA GIRALDOA K Ot 427.89 CARDIAC DYSRHYTHMIAS NEC 02/14/2013 ESPERANZA DO BANG K Ot 785.1 PALPITATIONS 03/28/2013 COOK DO, SAM K 703.0 NAIL INGROWN 03/28/2013 COOK DO, SAM K 703.0 NAIL INGROWN 03/28/2013 ANDREI DDS, VIOLET Alatorre 703.0 NAIL INGROWN 03/28/2013 COOK DO, SAM K 703.0 NAIL INGROWN 03/28/2013 TIFFANY GAITAN, LUIS ENRIQUE 703.0 NAIL INGROWN 03/28/2013 CEM GILL, TEODORO 703.0 NAIL INGROWN 03/28/2013 TIFFANY GAITAN, LUIS ENRIQUE 703.0 NAIL INGROWN 03/28/2013 ANN RAY APRNIA R 703.0 NAIL INGROWN 05/09/2013 ALBERTO GAITAN, ANTHONY Cox Ot 427.89 CARDIAC DYSRHYTHMIAS NEC 05/13/2013 MARIELLA GAITAN, VALENTE Galicia Ot 427.89 CARDIAC DYSRHYTHMIAS NEC 05/13/2013 VALENTE WOLFF MD Ot 785.1 PALPITATIONS 07/11/2013 COOK DO, SAM K 466.0 BRONCHITIS, ACUTE 07/11/2013 COOK DO SAM K V65.42 COUNSELING - SMOKING CESSATION 07/11/2013 LUIS ENRIQUE ALLEN MD 466.0 BRONCHITIS, ACUTE 07/11/2013 LUIS ENRIQUE ALLEN MD V65.42 COUNSELING - SMOKING CESSATION 07/11/2013 TEODORO PRIEST DDS 466.0 BRONCHITIS, ACUTE 07/11/2013 TEODORO PRIEST DDS V65.42 COUNSELING - SMOKING CESSATION 07/11/2013 LUIS ENRIQUE ALLEN MD 466.0 BRONCHITIS, ACUTE 07/11/2013 LUIS ENRIQUE ALLEN MD V65.42 COUNSELING - SMOKING CESSATION 07/11/2013 REAL RAY APRN R 466.0 BRONCHITIS, ACUTE 07/11/2013 REAL RAY APRN R V65.42 COUNSELING - SMOKING CESSATION 12/13/2013 LUIS ENRIQUE ALLEN MD 780.79 OTHER MALAISE AND FATIGUE 12/13/2013 TEODORO PRIEST DDS 780.79 OTHER MALAISE AND FATIGUE 12/13/2013 LUIS ENRIQUE ALLEN MD 780.79 OTHER MALAISE AND FATIGUE 12/13/2013 REAL RAY APRN R 780.79 OTHER MALAISE AND FATIGUE 02/22/2014 ANTHONY DOMINGUEZ MD Ot 288.60 LEUKOCYTOSIS, UNSPECIFIED 02/22/2014 ANTHONY DOMINGUEZ MD Ot 427.89 CARDIAC DYSRHYTHMIAS NEC 02/22/2014 ANTHONY DOMINGUEZ MD Ot 785.0 TACHYCARDIA NOS 04/10/2014 REAL RAY APRN R 786.2 COUGH 04/21/2014 Ot 414.00 04/21/2014 Ot 414.00 04/21/2014 Ot 414.00 04/21/2014 Ot 427.89 04/21/2014 Ot 786.50 04/21/2014 Ot V58.66 04/21/2014 Ot V58.69 04/21/2014 Ot V72.84 04/21/2014 RUY KOHLER BOX WORKER Ot 427.89 04/21/2014 RUY KOHLER BOX WORKER Ot 786.05 04/21/2014 RUY KOHLER BOX WORKER Ot 786.50 05/15/2016 Ot V72.84 EXAM PRE- OPERATIVE NOS 05/15/2016 RUY KOHLER BOX WORKER Ot 427.89 CARDIAC DYSRHYTHMIAS NEC 05/15/2016 RUY KOHLER BOX WORKER Ot 786.05 SHORTNESS OF BREATH 05/15/2016 RUY KOHLER BOX WORKER Ot 786.50 CHEST PAIN NOS 05/15/2016 Ot V72.84 EXAM PRE- OPERATIVE NOS 05/15/2016 RUY KOHLER BOX WORKER Ot 427.89 CARDIAC DYSRHYTHMIAS NEC 05/15/2016 RUY KOHLER BOX WORKER Ot 786.05 SHORTNESS OF BREATH 05/15/2016 RUY KOHLER BOX WORKER Ot 786.50 CHEST PAIN NOS 05/15/2016 Ot V72.84 EXAM PRE- OPERATIVE NOS 05/15/2016 RUY KOHLER BOX WORKER Ot 427.89 CARDIAC DYSRHYTHMIAS NEC 05/15/2016 RUY KOHLER BOX WORKER Ot 786.05 SHORTNESS OF BREATH 05/15/2016 RUY KOHLER BOX WORKER Ot 786.50 CHEST PAIN NOS 05/15/2016 MELISSA KOHLER MD A Ot F17.210 NICOTINE DEPENDENCE, CIGARETTES, UNCOMPL 05/15/2016 MELISSA KOHLER MD A Ot I47.1 SUPRAVENTRICULAR TACHYCARDIA 05/15/2016 MELISSA KOHLER MD Ot J44.9 CHRONIC OBSTRUCTIVE PULMONARY DISEASE, U 05/15/2016 MELISSA KOHLER MD A Ot R00.2 PALPITATIONS 05/15/2016 MELISSA KOHLER MD A Ot Z79.899 OTHER SNF (CURRENT) DRUG THERAPY 06/16/2016 Ot V72.84 EXAM PRE- OPERATIVE NOS 06/16/2016 RUY KOHLER BOX WORKER Ot 427.89 CARDIAC DYSRHYTHMIAS NEC 06/16/2016 RUY KOHLER BOX WORKER Ot 786.05 SHORTNESS OF BREATH 06/16/2016 RUY KOHLER BOX WORKER Ot 786.50 CHEST PAIN NOS 07/03/2016 MELISSA KOHLER MD A Ot F17.210 NICOTINE DEPENDENCE, CIGARETTES, UNCOMPL 07/03/2016 MELISSA KOHLER MD A Ot I47.1 SUPRAVENTRICULAR TACHYCARDIA 07/03/2016 MELISSA KOHLER MD A Ot J44.9 CHRONIC OBSTRUCTIVE PULMONARY DISEASE, U 07/03/2016 MELISSA KOHLER MD A Ot R00.2 PALPITATIONS 07/03/2016 MELISSA KOHLER MD A Ot Z79.899 OTHER SNF (CURRENT) DRUG THERAPY 10/31/2016 JOHN GAITAN, ALIYAH Savage Ot F17.210 NICOTINE DEPENDENCE, CIGARETTES, UNCOMPL 10/31/2016 JOHN GAITAN, ALIYAH Savage Ot F32.9 MAJOR DEPRESSIVE DISORDER, SINGLE EPISOD 10/31/2016 JOHN GAITAN, ALIYAH Savage Ot F41.9 ANXIETY DISORDER, UNSPECIFIED 10/31/2016 JOHN GAITAN, ALIYAH Savage Ot J44.9 CHRONIC OBSTRUCTIVE PULMONARY DISEASE, U 10/31/2016 JOHN GAITAN, ALIYAH Savage Ot K02.9 DENTAL CARIES, UNSPECIFIED 10/31/2016 JOHN GAITAN, ALIYAH Savage Ot R68.84 JAW PAIN 10/31/2016 Ot V72.84 EXAM PRE- OPERATIVE NOS 10/31/2016 RUY KOHLER BOX WORKER Ot 427.89 CARDIAC DYSRHYTHMIAS NEC 10/31/2016 RUY KOHLER BOX WORKER Ot 786.05 SHORTNESS OF BREATH 10/31/2016 RUY KOHLER BOX WORKER Ot 786.50 CHEST PAIN NOS 11/03/2016 JOHN GAITAN, ALIYAH Savage Ot F17.210 NICOTINE DEPENDENCE, CIGARETTES, UNCOMPL 11/03/2016 JOHN GAITAN, ALIYAH Savage Ot F32.9 MAJOR DEPRESSIVE DISORDER, SINGLE EPISOD 11/03/2016 ALIYAH LOPEZ MD Ot F41.9 ANXIETY DISORDER, UNSPECIFIED 11/03/2016 JOHN GAITAN, ALIYAH Savage Ot J44.9 CHRONIC OBSTRUCTIVE PULMONARY DISEASE, U 11/03/2016 JOHN GAITAN, ALIYAH Savage Ot K02.9 DENTAL CARIES, UNSPECIFIED 11/03/2016 JOHN GAITAN, ALIYAH Savage Ot R68.84 JAW PAIN 12/10/2017 LUIS ENRIQUE ALLEN MD Ot M43.16 SPONDYLOLISTHESIS, LUMBAR REGION 12/10/2017 LUIS ENRIQUE ALLEN MD Ot M46.87 OTH INFLAMMATORY SPONDYLOPATHIES, LUMBOS 12/10/2017 LUIS ENRIQUE ALLEN MD Ot M47.26 OTHER SPONDYLOSIS WITH RADICULOPATHY, KYLEE 12/10/2017 LUIS ENRIQUE ALLEN MD Ot M48.061 SPINAL STENOSIS, LUMBAR REGION WITHOUT N 12/10/2017 LUIS ENRIQUE ALLEN MD Ot M51.16 INTERVERTEBRAL DISC DISORDERS W RADICULO 12/10/2017 LUIS ENRIQUE ALLEN MD Ot M51.46 SCHMORL'S NODES, LUMBAR REGION 12/10/2017 LUIS ENRIQUE ALLEN MD Ot M99.73 CONN TISS AND DISC STENOS OF INTVRT FORA 12/15/2017 LUIS ENRIQUE ALLEN MD, Ot M43.16 SPONDYLOLISTHESIS, LUMBAR REGION 12/15/2017 LUIS ENRIQUE ALLEN MD Ot M46.87 OTH INFLAMMATORY SPONDYLOPATHIES, LUMBOS 12/15/2017 LUIS ENRIQUE ALLEN MD Ot M47.26 OTHER SPONDYLOSIS WITH RADICULOPATHY, KYLEE 12/15/2017 LUIS ENRIQUE ALLEN MD Ot M48.061 SPINAL STENOSIS, LUMBAR REGION WITHOUT N 12/15/2017 LUIS ENRIQUE ALLEN MD Ot M51.16 INTERVERTEBRAL DISC DISORDERS W RADICULO 12/15/2017 LUIS ENRIQUE ALLEN MD Ot M51.46 SCHMORL'S NODES, LUMBAR REGION 12/15/2017 LUIS ENRIQUE ALLEN MD Ot M99.73 CONN TISS AND DISC STENOS OF INTVRT FORA 01/04/2018 ALIYAH LOPEZ MD Ot F17.210 NICOTINE DEPENDENCE, CIGARETTES, UNCOMPL 01/04/2018 ALIYAH LOPEZ MD Ot F32.9 MAJOR DEPRESSIVE DISORDER, SINGLE EPISOD 01/04/2018 ALIYAH LOPEZ MD Ot F41.9 ANXIETY DISORDER, UNSPECIFIED 01/04/2018 ALIYAH LOPEZ MD Ot J44.9 CHRONIC OBSTRUCTIVE PULMONARY DISEASE, U 01/04/2018 ALIYAH LOPEZ MD Ot L29.9 PRURITUS, UNSPECIFIED 01/04/2018 ALIYAH LOPEZ MD Ot T78.2XXA ANAPHYLACTIC SHOCK, UNSPECIFIED, INITIAL 01/04/2018 ALIYAH LOPEZ MD Ot Z87.19 PERSONAL HISTORY OF OTHER DISEASES OF 01/04/2018 ALIYAH LOPEZ MD Ot Z88.5 ALLERGY STATUS TO NARCOTIC AGENT STATUS 01/06/2018 ALIYAH LOPEZ MD Ot F17.210 NICOTINE DEPENDENCE, CIGARETTES, UNCOMPL 01/06/2018 ALIYAH LOPEZ MD Ot F32.9 MAJOR DEPRESSIVE DISORDER, SINGLE EPISOD 01/06/2018 ALIYAH LOPEZ MD Ot F41.9 ANXIETY DISORDER, UNSPECIFIED 01/06/2018 ALIYAH LOPEZ MD Ot J44.9 CHRONIC OBSTRUCTIVE PULMONARY DISEASE, U 01/06/2018 ALIYAH LOPEZ MD J Ot L29.9 PRURITUS, UNSPECIFIED 01/06/2018 ALIYAH LOPEZ MD J Ot T78.2XXA ANAPHYLACTIC SHOCK, UNSPECIFIED, INITIAL 01/06/2018 ALIYAH LOPEZ MD J Ot Z87.19 PERSONAL HISTORY OF OTHER DISEASES OF 01/06/2018 JOHN GAITAN, ALIYAH Savage Ot Z88.5 ALLERGY STATUS TO NARCOTIC AGENT STATUS 01/08/2018 LUIS ENRIQUE ALLEN MD, Ot M43.16 SPONDYLOLISTHESIS, LUMBAR REGION 01/08/2018 LUIS ENRIQUE ALLEN MD, Ot M46.87 OT INFLAMMATORY SPONDYLOPATHIES, LUMBOS 01/08/2018 LUIS ENRIQUE ALLEN MD Ot M47.26 OTHER SPONDYLOSIS WITH RADICULOPATHY, KYLEE 01/08/2018 LUIS ENRIQUE ALLEN MD Ot M48.061 SPINAL STENOSIS, LUMBAR REGION WITHOUT N 01/08/2018 LUIS ENRIQUE ALLEN MD Ot M51.16 INTERVERTEBRAL DISC DISORDERS W RADICULO 01/08/2018 LUIS ENRIQUE ALLEN MD, Ot M51.46 SCHMORL'S NODES, LUMBAR REGION 01/08/2018 LUIS ENRIQUE ALLEN MD Ot M99.73 CONN TISS AND DISC STENOS OF INTVRT FORA 01/08/2018 RUY KOHLER BOX WORKER Ot 427.89 CARDIAC DYSRHYTHMIAS NEC 01/08/2018 RUY KOHLER BOX WORKER Ot 786.05 SHORTNESS OF BREATH 01/08/2018 RUY KOHLER BOX WORKER Ot 786.50 CHEST PAIN NOS 01/08/2018 LUIS ENRIQUE ALLEN MD Ot M43.16 SPONDYLOLISTHESIS, LUMBAR REGION 01/08/2018 LUIS ENRIQUE ALLEN MD Ot M46.87 OT INFLAMMATORY SPONDYLOPATHIES, LUMBOS 01/08/2018 LUIS ENRIQUE ALLEN MD Ot M47.26 OTHER SPONDYLOSIS WITH RADICULOPATHY, KYLEE 01/08/2018 LUIS ENRIQUE ALLEN MD Ot M48.061 SPINAL STENOSIS, LUMBAR REGION WITHOUT N 01/08/2018 LUIS ENRIQUE ALLEN MD Ot M51.16 INTERVERTEBRAL DISC DISORDERS W RADICULO 01/08/2018 LUIS ENRIQUE ALLEN MD, Ot M51.46 SCHMORL'S NODES, LUMBAR REGION 01/08/2018 LUIS ENRIQUE ALLEN MD Ot M99.73 CONN TISS AND DISC STENOS OF INTVRT FORA Procedures Code [place] [address] URINE DRUG SCREEN (IN-HOUSE ) 01/28/2012 99223 UA LONG DIP 01/28/2012 46221 H PYLORI (IN-HOUSE) 01/28/2012 66009 CBC 01/28/2012 99415 CMP 01/28/2012 7136089 GFR CALC (RESULT ONLY) 01/28/2012 77281 AMYLASE 01/29/2012 09809 LIPASE 01/29/2012 94502 ETHANOL SCREEN 01/29/2012 07398 CULTURE STOOL 01/29/2012 CPARASITE CRYPTOSPORIDIUM AND GIARDIA 01/29/2012 7231563 PARASITE SCREEN (RESULT ONLY) 01/30/2012 43186 EKG, TRACING 08/20/2012 60352 ECHO 2D 08/20/2012 85940 OXIMETRY 08/20/2012 Cardiolog Valdo, Ali 08/20/2012 Cardiolog Valdo, Ali 12/08/2012 80061 NAIL REMOVAL SINGLE ( COMPLETE OR PARTIAL) 04/12/2013 66184 NAIL REMOVAL PERMANENT ( PARTIAL OR COMPLETE) 07/11/2013 29950 OXIMETRY 07/11/2013 74744 ROUTINE VENIPUNCTURE 12/13/2013 [id number] GFR CALC (RESULT ONLY) 12/13/2013 98823 CMP 12/13/2013 51421 TESTOSTERONE TOTAL MALES 12/13/2013 86524 ROUTINE VENIPUNCTURE 02/28/2014 69407 CBC 02/28/2014 49473 INFLUENZA A & B (IN-HOUSE) 04/10/2014 01713 OXIMETRY 04/10/2014 Results Test Result Range Complete blood count (CBC) with automated white blood cell (WBC) differential - 05/15/16 04:35 Blood leukocytes automated count (number/volume) 12.8 10*3/uL 4.3-11.0 Blood erythrocytes automated count (number/volume) 5.35 10*6/uL 4.35-5.85 Venous blood hemoglobin measurement (mass/volume) 16.8 g/dL 13.3-17.7 Blood hematocrit (volume fraction) 48 % 40-54 Automated erythrocyte mean corpuscular volume 91 [foz_us] 80-99 Automated erythrocyte mean corpuscular hemoglobin (mass per erythrocyte) 31 pg 25-34 Automated erythrocyte mean corpuscular hemoglobin concentration measurement ( mass/volume) 35 g/dL 32-36 Automated erythrocyte distribution width ratio 14.4 % 10.0-14.5 Automated blood platelet count (count/volume) 261 10*3/uL 130-400 Automated blood platelet mean volume measurement 10.9 [foz_us] 7.4-10.4 Automated blood neutrophils/100 leukocytes 54 % 42-75 Automated blood lymphocytes/100 leukocytes 35 % 12-44 Blood monocytes/100 leukocytes 7 % 0-12 Automated blood eosinophils/100 leukocytes 3 % 0-10 Automated blood basophils/100 leukocytes 1 % 0-10 Blood neutrophils automated count (number/volume) 6.9 10*3 1.8-7.8 Blood lymphocytes automated count (number/volume) 4.5 10*3 1.0-4.0 Blood monocytes automated count (number/volume) 1.0 10*3 0.0-1.0 Automated eosinophil count 0.4 10*3/uL 0.0-0.3 Automated blood basophil count (count/volume) 0.1 10*3/uL 0.0-0.1 Comprehensive metabolic panel - 05/15/16 04:35 Serum or plasma sodium measurement (moles/volume) 140 mmol/L 135-145 Serum or plasma potassium measurement (moles/volume) 4.3 mmol/L 3.6-5.0 Serum or plasma chloride measurement (moles/volume) 105 mmol/L 98-107 Carbon dioxide 22 mmol/L 21-32 Serum or plasma anion gap determination (moles/volume) 13 mmol/L 5-14 Serum or plasma urea nitrogen measurement (mass/volume) 12 mg/dL 7-18 Serum or plasma creatinine measurement (mass/volume) 1.05 mg/dL 0.60-1.30 Serum or plasma urea nitrogen/creatinine mass ratio 11 NRG Serum or plasma creatinine measurement with calculation of estimated glomerular filtration rate > NRG Serum or plasma glucose measurement (mass/volume) 123 mg/dL 70-105 Serum or plasma calcium measurement (mass/volume) 9.1 mg/dL 8.5-10.1 Serum or plasma total bilirubin measurement (mass/volume) 0.3 mg/dL 0.1-1.0 Serum or plasma alkaline phosphatase measurement (enzymatic activity/volume) 79 U/L 40-136 Serum or plasma aspartate aminotransferase measurement (enzymatic activity/ volume) 18 U/L 5-34 Serum or plasma alanine aminotransferase measurement (enzymatic activity/volume ) 28 U/L 0-55 Serum or plasma protein measurement (mass/volume) 7.2 g/dL 6.4-8.2 Serum or plasma albumin measurement (mass/volume) 4.2 g/dL 3.2-4.5 Serum or plasma troponin i.cardiac measurement (mass/volume) - 05/15/16 04:35 Serum or plasma troponin i.cardiac measurement (mass/volume) < ng/ mL <0.30 LIPID PANEL - 03/04/17 08:43 CHOLESTEROL, TOTAL 300 mg/dL <200 HDL CHOLESTEROL 31 mg/dL >40 TRIGLYCERIDES 438 mg/dL <150 LDL-CHOLESTEROL mg/dL (calc) NRG CHOL/HDLC RATIO 9.7 (calc) <5.0 NON HDL CHOLESTEROL 269 mg/dL (calc) <130 CMP - 12/24/17 10:02 GLUCOSE 103 mg/dL 65-99 UREA NITROGEN (BUN) 15 mg/dL 7-25 CREATININE 0.86 mg/dL 0.70-1.33 eGFR NON-AFR. [place] 97 mL/min/1.73m2 > OR=60 eGFR 112 mL/min/1.73m2 > OR=60 BUN/CREATININE RATIO NOT APPLICABLE (calc) 6-22 SODIUM 136 mmol/L 135-146 POTASSIUM 4.5 mmol/L 3.5-5.3 CHLORIDE 103 mmol/L 98-110 CARBON DIOXIDE 24 mmol/L 20-32 CALCIUM 9.4 mg/dL 8.6-10.3 PROTEIN, TOTAL 7.0 g/dL 6.1-8.1 ALBUMIN 4.6 g/dL 3.6-5.1 GLOBULIN 2.4 g/dL (calc) 1.9-3.7 ALBUMIN/GLOBULIN RATIO 1.9 (calc) 1.0-2.5 BILIRUBIN, TOTAL 0.5 mg/dL 0.2-1.2 ALKALINE PHOSPHATASE 91 U/L 40-115 AST 16 U/L 10-35 ALT 20 U/L 9-46 Encounters ACCT No. Visit Date/Time Discharge Status Pt. Type Provider Facility Loc./Unit Complaint [id number] 04/10/2014 13:43:00 04/10/2014 23:59:59 CLS Outpatient REAL RAY APRN [id number] 02/28/2014 09:00:00 02/28/2014 23:59:59 CLS Outpatient LUIS ENRIQUE ALLEN MD [id number] 01/26/2014 08:27:00 01/26/2014 23:59:59 CLS Outpatient TEODORO PRIEST DDS [id number] 12/13/2013 14:59:00 12/13/2013 23:59:59 CLS Outpatient LUIS ENRIQUE ALLEN MD [id number] 07/11/2013 13:53:00 07/11/2013 23:59:59 CLS Outpatient SAM COOK DO [id number] 04/26/2013 07:52:00 04/26/2013 23:59:59 CLS Outpatient VIOLET FORBES DDS [id number] 04/11/2013 16:24:00 04/11/2013 23:59:59 CLS Outpatient SAM COOK DO [place] [id number] 03/28/2013 18:19:00 03/28/2013 23:59:59 CLS Outpatient SAM COOK DO [place] [id number] 12/08/2012 08:26:00 12/08/2012 23:59:59 CLS Outpatient SAM COOK DO [place] [id number] 06/07/2012 15:29:00 06/07/2012 23:59:59 CLS Outpatient [id number] 03/29/2012 09:29:00 03/29/2012 23:59:59 CLS Outpatient [id number] 03/15/2012 08:19:00 03/15/2012 23:59:59 CLS Outpatient [id number] 03/02/2012 13:25:00 03/02/2012 23:59:59 CLS Outpatient [id number] 01/28/2012 14:27:00 01/28/2012 23:59:59 CLS Outpatient LUIS ENRIQUE ALLEN MD [id number] 08/18/2012 08:59:00 Document Registration [id number] 01/04/2018 00:15:00 01/04/2018 03:20:00 DIS Emergency ALIYAH LOPEZ MD [facility] ER ITCHY RASHES [id number] 12/09/2017 09:13:00 12/09/2017 23:59:59 CLS Outpatient LUIS ENRIQUE ALLEN MD [facility] RAD M54.16 LUMBAR RADICULOPATHY [id number] 10/31/2016 20:28:00 10/31/2016 21:01:00 DIS Emergency ALIYAH LOPEZ MD [facility] ER TOOTH PAIN [id number] 05/15/2016 04:30:00 05/15/2016 05:36:00 DIS Emergency MELISSA KOHLER MD [facility] ER HEART PALPITATIONS [id number] 02/22/2014 14:33:00 02/22/2014 16:57:00 DIS Emergency ALBERTO GAITAN, ANTHONY Cox [facility] ER RAPID HEART RATE [id number] 05/13/2013 11:53:00 05/13/2013 13:19:00 DIS Emergency MARIELLA GAITAN, VALENTE Galicia [facility] ER RAPID HEART RATE [id number] 05/09/2013 07:17:00 05/09/2013 09:33:00 DIS Emergency ALBERTO GAITAN, ANTHONY Cox [facility] ER RAPID HEART RATE [id number] 02/14/2013 09:51:00 02/14/2013 10:50:00 DIS Emergency BANG MATA DO [facility] ER HEART PALPITATIONS [id number] 08/26/2012 12:51:00 08/26/2012 23:59:59 CLS Outpatient RUY KOHLER [facility] CARD CHEST PAIN,SOB,SVT [id number] 04/21/2014 10:46:00 Document Registration [id number] 04/21/2014 10:46:00 Document Registration [id number] 04/21/2014 10:46:00 Document Registration [id number] 06/28/2012 08:36:00 Document Registration [id number] 06/23/2012 08:15:00 Document Registration [id number] 06/20/2012 16:42:00 Document Registration [id number] 02/23/2012 21:28:00 Document Registration [id number] 10/26/2011 07:53:00 Document Registration [id number] 09/26/2011 11:25:00 Document Registration [id number] 09/17/2011 14:38:00 Document Registration [id number] 05/30/2010 15:55:00 Document Registration [id number] 05/06/2010 08:04:00 Document Registration [id number] 04/12/2010 09:25:00 Document Registration [id number] 11/12/2009 08:29:00 Document Registration [id number] 11/05/2009 12:33:00 Document Registration [id number] 09/27/2009 08:24:00 Document Registration [id number] 07/02/2017 14:40:00 07/02/2017 23:59:59 [facility] Out[facility] TIFFANY GAITAN[facility] [place] [id number] 12/24/2017 09:20:00 Document Registration [id number] 03/04/2017 08:40:00 Document Registration
[2018-02-18] MEDS ORDERED: methylPREDNISolone 125 MG (Solu-MEDROL) VIAL IV STA (00:14)
[2018-02-18] MEDS ORDERED: FAMOTIDINE 20MG/2ML IV (PEPCID) IV STA (00:14)
[2018-02-18] MEDS ORDERED: diphenhydrAMINE 25 MG TAB (BENADRYL) PO ONE (00:15)
[2018-02-18] MEDS ORDERED: NS IV 1000 ML 1,000 ML IV ONE (00:18)
[2018-02-18] MEDS ORDERED: NS IV 1000 ML 1,000 ML ONE (00:19)
[2018-02-18 00:30] VITALS: BP 123/88
[2018-02-18] MEDS ORDERED: RT-ALBUTEROL/IPRATROPIUM 3 ML (DUONEB) VIAL INH ONE (00:30)
[2018-02-18] MEDS ORDERED: RT-epiNEPHrine (RACEMIC) 2.25% 0.5 ML VIAL INH ONE (00:30)
[2018-02-18] MEDS ORDERED: DEXAMETHASONE 4 MG/ML SDV (DECADRON) IH ONE (00:30)
[2018-02-18 01:00] VITALS: BP 142/71
[2018-02-18 01:30] VITALS: BP 119/66
[2018-02-18] MEDS ORDERED: hydrOXYzine (VISTARIL) 25 MG CAP PO ONE (01:30)
--- NOTE | 2018-02-18 02:06 | ED Integumentary General ---
General Chief Complaint: Allergic Reaction Stated Complaint: ITCHY ALL OVER Nursing Triage Note: GENERALIZED ITCHING/ HIVES Source: patient (PT IS VERY LIMITED HISTORIAN --PT IS VERY HOSTILE FROM ARRIVAL AND DOES NOT WANT TO ANSWER ANY QUESTIONS. ), old records (ALL PMH IS FROM OLD CHART, PT IS REFUSING TO ANSWER QUESTIONS ) History of Present Illness Date Seen by Provider: Feb 18, 2018 Time Seen by Provider: 00:15 Initial Comments PT ARRIVES VIA POV FROM HOME C/O ITCHING ALL OVER--STATES HE WOKE UP AT 2330 WITH ITCHING ALL OVER HAS NOT TAKEN ANYTHING FOR SYMPTOMS STATES IT IS A LITTLE HARD TO BREATHE AND THROAT FEELS A LITTLE TIGHT. NO PROBLEMS SWALLOWING. NO SWELLING ANYWHERE. STATES HE HAS THE SAME THING HAPPEN 1 1/2 MONTHS AGO--STATES "MY BLOOD PRESSURE BOTTOMED OUT" WITH THAT EPISODE HAD BEEN STARTED ON A NEW MEDICATION 2 WEEKS PRIOR, STATES "IT WAS FOR BACK PAIN AND DIABETIC NEUROPATHY" --STATES HE IS NOT DIABETIC AND DOES NOT HAVE NEUROPATHY QUIT TAKING THAT MEDICATION IMMEDIATELY AND SYMPTOMS WENT AWAY WAS STARTED ON TRAMADOL DAILY SINCE THAT TIME, 1 1/2 MONTHS AGO, AND HAS NOT HAD ANY DOSE CHANGES. HAS NOT TAKEN ANYTHING FOR SYMPTOMS PCP: DR. ALLEN AT [facility] Allergies and Home Medications Allergies Coded Allergies: codeine (Verified Allergy, Unknown, VOMITTING, 12/15/08) Home Medications Metoprolol Tartrate 50 Mg Tablet, 1 EACH PO BID Prescribed by: VALENTE WOLFF on 05/13/13 1313 Patient Home Medication List Home Medication List Reviewed: Yes Review of Systems Review of Systems Constitutional: no symptoms reported; No diaphoresis, No dizziness EENTM: see HPI Respiratory: see HPI Musculoskeletal: no symptoms reported Skin: see HPI, pruritus, rash Past Iemgzhz-Smeecj-Ntvdic Hx Patient Social History Alcohol Use: Denies Use Recreational Drug Use: Yes Drug of Choice: DENIES Smoking Status: Current Everyday Smoker Type Used: Cigarettes 2nd Hand Smoke Exposure: Yes Recent Foreign Travel: No Contact w/Someone Who Travel: No Recent Infectious Disease Expo: No Recent Hopitalizations: No Immunizations Up To Date Tetanus Booster (TDap): Unknown Seasonal Allergies Seasonal Allergies: No Past Medical History Surgeries: Yes (HERNIA) Abdominal Respiratory: No COPD Cardiac: Yes (SVT) Hypertension, Palpitations Neurological: No Reproductive Disorders: No Genitourinary: No Gastrointestinal: No Musculoskeletal: Yes Chronic Back Pain Endocrine: No HEENT: No Cancer: No Psychosocial: Yes Anxiety, Depression Integumentary: No Blood Disorders: No Family Medical History No Pertinent Family Hx Physical Exam Vital Signs Vital Signs - First Documented 02/18/18 02/18/18 00:10 00:30 Temp 96.3 Pulse 85 Resp 20 B/P (MAP) 87/40 (56) Pulse Ox 97 O2 Delivery Room Air O2 Flow Rate 2.00 Capillary Refill : Less Than 3 Seconds General Appearance: WD/WN, no apparent distress, other (PT DIRTY, MALODOROUS, PT VERY HOSTILE TO ALL ER STAFF AND DOES NOT MAKE EYE CONTACT WITH ANY STAFF. ) HEENT: other (POOR DENTITON, NO SWELLING TO LIPS OR TONGUE OR UVULA) Neck: normal inspection Cardiovascular: regular rate, rhythm, no murmur Respiratory: No stridor; wheezing, expiration, inspiration Extremities: normal inspection, no pedal edema, normal capillary refill Neurologic/Psychiatric: no motor/sensory deficits, alert Skin: normal color, warm/dry, rash (DIFFUSE ERYTHEMA WITH SUPERIMPOSED URTICARIAL WHEALS OVER ENTIRE BODY, SPARING SCALP, PALMS AND SOLES. SKIN WITH AREAS OF EXCORIATIONS FROM PT SCRATCHING. ) Progress/Results/Core Measures Results/Orders My Orders Orders - BANG MATA DO Saline Lock/Iv-Start (02/18/18 00:14) Saline Lock/Iv-Start (02/18/18 00:14) Famotidine Injection (Pepcid Injection) (02/18/18 00:14) Methylprednisolone Sod Succ (Solu-Medrol (02/18/18 00:14) Diphenhydramine Tablet (Benadryl Tablet) (02/18/18 00:15) Saline Lock/Iv-Start (02/18/18 00:18) Ns Iv 1000 Ml (Sodium Chloride 0.9%) (02/18/18 00:18) Ns Iv 1000 Ml (Sodium Chloride 0.9%) (02/18/18 00:19) Albuterol/Ipra Inhalation Soln (Duoneb I (02/18/18 00:30) Rt Epinephrine (Racemic Epinephrine 2.25 (02/18/18 00:30) Dexamethasone Injection (Decadron Inject (11/29/18 00:30) Rt Request For Service (02/18/18 00:24) Svn Small Volume Nebulizer (02/18/18 00:24) Svn Small Volume Nebulizer (02/18/18 00:24) Hydroxyzine Oral (Vistaril Capsule) (02/18/18 01:30) Medications Given in ED Current Medications Medications Dose Ordered Sig/Pankaj Route Start Time Stop Time Status Last Admin Dose Admin Albuterol/ Ipratropium 3 ml ONCE ONCE INH 02/18/18 00:30 02/18/18 00:31 DC 02/18/18 00:48 3 ML Dexamethasone Sodium Phosphate 20 mg ONCE ONCE IH 02/18/18 00:30 02/18/18 00:31 DC 02/18/18 00:48 20 MG Diphenhydramine HCl 50 mg ONCE ONCE PO 02/18/18 00:15 02/18/18 00:16 DC 02/18/18 00:23 50 MG Epinephrine 0.5 ml ONCE ONCE INH 02/18/18 00:30 02/18/18 00:31 DC 02/18/18 00:48 0.5 ML Hydroxyzine Pamoate 50 mg ONCE ONCE PO 02/18/18 01:30 02/18/18 01:31 DC 02/18/18 01:22 50 MG Sodium Chloride 1,000 ml @ 0 mls/hr Q0M ONCE IV 02/18/18 00:18 02/18/18 00:19 DC 02/18/18 00:24 0 MLS/HR Vital Signs/I&O 02/18/18 02/18/18 02/18/18 02/18/18 00:10 00:30 00:50 00:51 Temp 96.3 Pulse 85 69 Resp 20 18 B/P (MAP) 87/40 (56) 123/88 (100) Pulse Ox 97 98 100 100 O2 Delivery Room Air Nasal Cannula Nasal Cannula Nasal Cannula O2 Flow Rate 2.00 2.00 2.00 02/18/18 02/18/18 02/18/18 01:00 01:30 02:10 Temp 97.0 Pulse 84 82 84 Resp 16 18 18 B/P (MAP) 142/71 (94) 119/66 (83) 118/63 (81) Pulse Ox 99 99 97 O2 Delivery Nasal Cannula Room Air Room Air O2 Flow Rate 2.00 Blood Pressure Mean: 83 Progress Progress Note : Progress Note RASH AND ITCHING GONE AT DISMISSAL. BP UP WITH FLUIDS. GIVEN NEB TREATMENT WITH RESOLUTION OF WHEEZING AND NO LONGER FEELS LIKE HIS THROAT IS TIGHT AND CAN BREATHE NORMALLY NOW. PT ANXIOUS TO GO HOME AND REMAINS HOSTILE. . Departure Impression Primary Impression: Hives of unknown origin Disposition: HOME, SELF-CARE Condition: Improved Departure-Patient Inst. Referrals: LUIS ENRIQUE ALLEN MD (PCP/Family) Primary Care Physician Patient Instructions: Shashi (ALINE) Add. Discharge Instructions: TAKE BENADRYL 50 MG EVERY 4 HOURS NEEDED FOR RASH AND ITCHING LOTS OF CLEAR LIQUIDS TAKE YOUR REGULAR MEDICATIONS PRESCRIBED NO NEW FOODS OR DRINKS FOLLOW UP WITH YOUR DR IF SYMPTOMS RETURN, OR RETURN TO ER IF WORSE All discharge instructions reviewed with patient and/or family. Voiced understanding. BANG MATA DO Feb 18, 2018 02:06
[2018-02-18 02:10] VITALS: BP 118/63
== END 2018-02-18 02:10 | disposition home or self-care (01) ==
LOC: EDUNIT# 23:59 → ER 02-18 00:01
DX: L50.9 Urticaria, unspecified (principal); J44.9 Chronic obstructive pulmonary disease, unspecified; I10 Essential (primary) hypertension; F41.9 Anxiety disorder, unspecified; F32.9 Major depressive disorder, single episode, unspecified; F17.210 Nicotine dependence, cigarettes, uncomplicated; Z88.5 Allergy status to narcotic agent; Z87.19 Personal history of other diseases of the digestive system
CPT/HCPCS: 94640; 96361; 96374; 96375

== ENCOUNTER → 2020-01-16 | Outpatient (CLI) | payer SELFPAY | LOC: CARD 13:30 | PROVIDERS: ATTEND Nurse Practitioner Family | DX: R07.9 Chest pain, unspecified (principal); R06.02 Shortness of breath; R00.2 Palpitations; Z72.0 Tobacco use | CPT/HCPCS: 93306 ==